=== PATIENT | female | born 1955 | race Caucasian/White ===

== ENCOUNTER 2018-11-04 10:22 | Inpatient (IN) | payer MEDICARE ==
[2018-11-04] MEDS ORDERED: VANCOMYCIN HCL INJ 1000 MG VIAL IV ONE (10:52)
--- NOTE | 2018-11-04 10:54 | ER Document Report ---
ED Medical Screen (RME) - General Chief Complaint: Hand Injury Stated Complaint: FALL Time Seen by Provider: 11/04/18 10:48 Notes: RAPID MEDICAL EVALUATION DISCLOSURE I have seen this patient as part of a Rapid Medical Evaluation and, if applic able, placed any initially appropriate orders. The patient will be seen and fully evaluated, including a full history and physical exam, by a provider (in Main ED or Fast Track) when a room becomes available. 62-year-old female PMH diabetes here with complaints of right hand and forearm swelling redness ongoing for the past 2 weeks. She reports it started when she fell and accidentally caught her right hand on her wheelchair. Since then she has had progressively worsening symptoms. She does have a history of MRSA and family member reports it is only susceptible to vancomycin. EXAM Mild to moderate right hand swelling with erythema and lymphangitis tracking up the forearm to elbow No drainage visualized from the 1.5 cm right palm lesion - Related Data Allergies/Adverse Reactions: No Known Allergies Allergy (Unverified 11/04/18 10:23) Physical Exam - Vital signs Vitals: Temp Pulse Resp BP Pulse Ox 98.5 F 105 H 18 124/69 96 11/04/18 10:35 11/04/18 10:35 11/04/18 10:35 11/04/18 10:35 11/04/18 10:35 Course - Vital Signs Vital signs: Temp Pulse Resp BP Pulse Ox 98.5 F 105 H 18 124/69 96 11/04/18 10:35 11/04/18 10:35 11/04/18 10:35 11/04/18 10:35 11/04/18 10:35
--- NOTE | 2018-11-04 11:45 | RADIOLOGY REPORT (SQ) ---
EXAM DESCRIPTION: HAND RIGHT 2 VIEWS; FOREARM RIGHT COMPLETED DATE/TIME: 11/04/2018 11:20 am REASON FOR STUDY: infection; eval gas gangrene osteolysis? COMPARISON: None. EXAM PARAMETERS: NUMBER OF VIEWS: Three views of the right hand, two views of right forearm. TECHNIQUE: AP, lateral and oblique radiographic images acquired of the right hand. AP and lateral r adiographic images are right forearm. LIMITATIONS: None. FINDINGS: MINERALIZATION: Normal. BONES: No acute fracture or dislocation. No worrisome bone lesions. JOINTS: No effusions. SOFT TISSUES: Diffuse soft tissue swelling about the right thumb. There is a radiodense metallic fra gment such as a needle or wire present in the pad of the right thumb. 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 IMPRESSION: Diffuse soft tissue swelling about the right thumb. There is a radiodense metallic frag ment such as a needle or wire present in the pad of the right thumb. No evidence of subcutaneous emp hysema; CT is more sensitive for the evaluation of subcutaneous emphysema. MRI is more sensitive for the evaluation of marrow edema and osteomyelitis. TECHNICAL DOCUMENTATION: JOB ID: [id number] [employer]- All Rights Reserved Reading location - IP/workstation name: [id number]
--- NOTE | 2018-11-04 11:45 | RADIOLOGY REPORT (SQ) ---
EXAM DESCRIPTION: HAND RIGHT 2 VIEWS; FOREARM RIGHT COMPLETED DATE/TIME: 11/04/2018 11:20 am REASON FOR STUDY: infection; eval gas gangrene osteolysis? COMPARISON: None. EXAM PARAMETERS: NUMBER OF VIEWS: Three views of the right hand, two views of right forearm. TECHNIQUE: AP, lateral and oblique radiographic images acquired of the right hand. AP and lateral r adiographic images are right forearm. LIMITATIONS: None. FINDINGS: MINERALIZATION: Normal. BONES: No acute fracture or dislocation. No worrisome bone lesions. JOINTS: No effusions. SOFT TISSUES: Diffuse soft tissue swelling about the right thumb. There is a radiodense metallic fra gment such as a needle or wire present in the pad of the right thumb. 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 IMPRESSION: Diffuse soft tissue swelling about the right thumb. There is a radiodense metallic frag ment such as a needle or wire present in the pad of the right thumb. No evidence of subcutaneous emp hysema; CT is more sensitive for the evaluation of subcutaneous emphysema. MRI is more sensitive for the evaluation of marrow edema and osteomyelitis. TECHNICAL DOCUMENTATION: JOB ID: [id number] [employer]- All Rights Reserved Reading location - IP/workstation name: [email or web address]
[2018-11-04 11:49] LABS: HEMATOCRIT 32.3 % (36.0-47.0); HEMOGLOBIN 11.4 g/dL (12.0-15.5); MEAN CORPUSCULAR HEMOGLOBIN 30.3 pg (27.0-33.4); MEAN CORPUSCULAR HGB CONC 35.2 g/dL (32.0-36.0); MEAN CORPUSCULAR VOLUME 86 fl (80-97); PLATELET COUNT 563 10^3/uL (150-450); RED BLOOD COUNT 3.75 10^6/uL (3.72-5.28); RED CELL DISTRIBUTION WIDTH 14.8 % (11.5-14.0)
[2018-11-04 12:19] LABS: ABSOLUTE LYMPHOCYTES# (MANUAL) 1.4 10^3/uL (0.5-4.7); ABSOLUTE MONOCYTES # (MANUAL) 0.5 10^3/uL (0.1-1.4); ABSOLUTE NEUTROPHILS# (MANUAL) 22.1 10^3/uL (1.7-8.2); BAND NEUTROPHILS % (MANUAL) 2 % (3-5); BASOPHILS % (MANUAL) 0 % (0-2); EOSINOPHILS % (MANUAL) 0 % (0-6); LYMPHOCYTES % (MANUAL) 6 % (13-45); MONOCYTES % (MANUAL) 2 % (3-13); SEGMENTED NEUTROPHILS % (MAN) 90 % (42-78); TOTAL CELLS COUNTED 100
[2018-11-04 12:20] LABS: PLATELET COMMENT ADEQUATE; TOXIC GRANULATION SLIGHT
[2018-11-04 12:21] LABS: POLYCHROMASIA SLIGHT
[2018-11-04] MEDS: ONDANSETRON HCL INJ/PF 4 MG/2 ML SDV IV PRN ×2 (12:40→23:00)
[2018-11-04] MEDS: MORPHINE SULFATE 10 MG/ML INJ IV PRN (12:41)
[2018-11-04 13:53] LABS: ALANINE AMINOTRANSFERASE 8 U/L (9-52); ALBUMIN 3.4 g/dL (3.5-5.0); ALKALINE PHOSPHATASE 218 U/L (38-126); ANION GAP 13 (5-19); ASPARTATE AMINO TRANSFERASE 22 U/L (14-36); BILIRUBIN,DIRECT 0.3 mg/dL (0.0-0.4); BILIRUBIN,TOTAL 0.3 mg/dL (0.2-1.3); BLOOD UREA NITROGEN 25 mg/dL (7-20); CALCIUM 10.8 mg/dL (8.4-10.2); CARBON DIOXIDE 24 mmol/L (22-30); CHLORIDE 88 mmol/L (98-107); POTASSIUM 4.3 mmol/L (3.6-5.0); SODIUM 125.4 mmol/L (137-145); TOTAL PROTEIN 7.1 g/dL (6.3-8.2)
[2018-11-04 14:06] LABS: GLUCOSE 684 mg/dL (75-110)
[2018-11-04] MEDS ORDERED: CEFTRIAXONE 1 GM/D5W RTU 1 GM/50 ML RTUPB IV ONE (14:29)
--- NOTE | 2018-11-04 15:50 | ER Document Report ---
ED General - General Chief Complaint: Hand Injury Stated Complaint: FALL Time Seen by Provider: 11/04/18 10:48 - HPI Patient complains to provider of: Right hand swelling Notes: Patient is a poorly controlled diabetic coming in for swelling of the right hand. Patient was seen by triage provider whose note is provided below 62-year-old female PMH diabetes here with complaints of right hand and forearm swelling redness ongoing for the past 2 weeks. She reports it started when she fell and accidentally caught her right hand on her wheelchair. Since then she has had progressively worsening symptoms. She does have a history of MRSA and family member reports it is only susceptible to vancomycin. Upon my evaluation patient does endorse a history of MRSA however states that she fell only approximately 3-4 days ago. Patient has already had x-rays performed does endorse a history of approximate 1 month ago having a small metal sliver inserted into her thumb. Patient otherwise denies any recent use of antibiotics denies any hospitalization states most of her cares performed in [facility]. Patient states only had diabetic. Patient otherwise denies fevers chills nausea vomiting diarrhea A brief review of the patient's past medical records available in [facility] was performed - Related Data Allergies/Adverse Reactions: No Known Allergies Allergy (Unverified 11/04/18 10:23) Past Medical History - Social History Smoking Status: Never Smoker Chew tobacco use (# tins/day): No Frequency of alcohol use: None Drug Abuse: None Family History: Reviewed & Not Pertinent Patient has suicidal ideation: No Patient has homicidal ideation: No Endocrine Medical History: Reports: Hx Diabetes Mellitus Type 1 Renal/ Medical History: Denies: Hx Peritoneal Dialysis Past Surgical History: Reports: Hx Cardiac Surgery Review of Systems - Review of Systems Constitutional: No symptoms reported EENT: No symptoms reported Cardiovascular: No symptoms reported Respiratory: No symptoms reported Gastrointestinal: No symptoms reported Genitourinary: No symptoms reported Female Genitourinary: No symptoms reported Musculoskeletal: Other - Right hand swelling Skin: No symptoms reported Hematologic/Lymphatic: No symptoms reported Neurological/Psychological: No symptoms reported -: Yes All other systems reviewed and negative Physical Exam - Vital signs Vitals: Temp Pulse Resp BP Pulse Ox 98.5 F 105 H 18 124/69 96 11/04/18 10:35 11/04/18 10:35 11/04/18 10:35 11/04/18 10:35 11/04/18 10:35 Interpretation: Normal - General General appearance: Appears well, Alert - HEENT Head: Normocephalic, Atraumatic Eyes: Normal Pupils: PERRL - Respiratory Respiratory status: No respiratory distress Chest status: Nontender Breath sounds: Normal Chest palpation: Normal - Cardiovascular Rhythm: Regular Heart sounds: Normal auscultation Murmur: No - Abdominal Inspection: Normal Distension: No distension Bowel sounds: Normal Tenderness: Nontender Organomegaly: No organomegaly - Back Back: Normal, Nontender - Extremities General upper extremity: Normal ROM, Normal temperature, Other - Mild to moderate right hand swelling with erythema and lymphangitis tracking up the forearm to elbow No drainage visualized from the 1.5 cm right palm lesion. No: Normal inspection General lower extremity: Nontender, Normal color, Normal ROM, Normal temperature. No: Normal inspection - Bilateral AKA's, Alejandro's sign - Neurological Neuro grossly intact: Yes Cognition: Normal Orientation: AAOx4 Stacey Coma Scale Eye Opening: Spontaneous Stacey Coma Scale Verbal: Oriented Stacey Coma Scale Motor: Obeys Commands Stacey Coma Scale Total: 15 Speech: Normal Motor strength normal: LUE, RUE, LLE, RLE Sensory: Normal - Psychological Associated symptoms: Normal affect, Normal mood - Skin Skin Temperature: Warm Skin Moisture: Dry Skin Color: Normal Course - Re-evaluation Re-evalutation: 11/04/18 17:59 Laboratory studies show leukocytosis with with elevated blood glucose. No signs of acidosis normal bicarbonate normal gap. Refer to the hospitalist requesting or the consult was able to call Dr. traylor consult was placed and states he will see the patient in the morning otherwise patient was stable for admission - Vital Signs Vital signs: Temp Pulse Resp BP Pulse Ox 98.5 F 105 H 20 120/81 94 11/04/18 10:35 11/04/18 10:35 11/04/18 15:00 11/04/18 15:00 11/04/18 15:01 - Laboratory Result Diagrams: 11/04/18 11:25 11/04/18 12:32 Laboratory results interpreted by me: 11/04/18 11/04/18 11:25 12:32 WBC 24.0 H Hgb 11.4 L Hct 32.3 L RDW 14.8 H Plt Count 563 H Seg Neuts % (Manual) 90 H Band Neutrophils % 2 L Lymphocytes % (Manual) 6 L Monocytes % (Manual) 2 L Abs Neuts (Manual) 22.1 H Sodium 125.4 L Chloride 88 L BUN 25 H Est GFR (Non-Af Amer) 52 L Glucose 684 H* Calcium 10.8 H ALT 8 L Alkaline Phosphatase 218 H Albumin 3.4 L Discharge - Discharge Clinical Impression: Infection of right hand, Diabetes, Hyperglycemia, 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
[2018-11-04] MEDS ORDERED: OXYCODONE HCL IR 5 MG TABLET PO ONE (16:06)
[2018-11-04] MEDS ORDERED: ONDANSETRON HCL INJ/PF 4 MG/2 ML SDV IV PRN (16:07)
[2018-11-04] MEDS ORDERED: NORMAL SALINE 1000 ML 1,000 ML IV PRN (16:07)
[2018-11-04] MEDS ORDERED: GLUCAGON,HUMAN RECOMB 1 MG INJ IM PRN (16:13)
[2018-11-04] MEDS ORDERED: DEXTROSE 50%-WATER 25 GM/50 ML DISP.SYRIN IV PRN ×2 (16:13)
[2018-11-04] MEDS ORDERED: DEXTROSE 40% GEL 15 GM TUBE PO PRN ×2 (16:13)
[2018-11-04] MEDS ORDERED: VANCOMYCIN HCL 0 MG in DEXTROSE 5%-WATER 250 ML IV NR (17:30)
[2018-11-04] MEDS ORDERED: NORMAL SALINE 1000 ML 500 ML IV ONE (17:37)
[2018-11-04] MEDS: PIPERACILLIN SODIUM/TAZOBACTAM 3.375 GM in NORMAL SALINE 100 ML IV SCH ×2 (18:40→23:13)
[2018-11-04] MEDS: INSULIN REG, HUMAN 100 UNIT/ML 3 ML VIAL (PYX) SUBCUT PRN (18:56)
--- NOTE | 2018-11-04 19:11 | PDOC H&P ---
History of Present Illness Patient complains of: right hand pain History of Present Illness: RAMAN MANCIA is a 62 year old female with a past medical history of diabetes and bilateral lower extremity amputation, who presented to the ED complaining of right hand pain. Patient states that she fell 3-4 days ago while she slipped out of the couch and hurt her hand and hence she came to the ER today because her pain was unbearable. Patient states that she did not have LOC and just slipped forward and tried to break her fall by using her hands. States she stayed at home and tried to take care of her pain on her own but the pain was getting worse. She denies fevers chills, shortness of breath, chest pain, abdominal pain, nausea/vomiting or dizziness. She also has a wound on her right palm of her hand which she states has been there for weeks now. I asked her if she followed up with her doctor regarding this wound and she states no. In the ED she received IV antibiotics with Rocephin and Vanco. ED physician also contacted orthopedist regarding the hand wound. Past Medical History Endocrine Medical History: Reports: Diabetes Mellitus Type 1 Social History Information Source: Patient Lives with: Family - daughter Smoking Status: Never Smoker - Advance Directive Resuscitation Status: Do Not Resuscitate - patient states she recently signed a DNR order Family History Parental Family History Reviewed: Yes Children Family History Reviewed: Unknown Sibling(s) Family History Reviewed.: Unknown Medication/Allergy Home Medications: Aspirin [Adult Low Dose Aspirin EC] 81 mg PO DAILY 11/04/18 Insulin Glargine,Hum.rec.anlog [Lantus Insulin Inj 300 Unit/3 ml Pen] 20 unit SUBCUT QHS 11/04/18 Insulin Lispro [Humalog Insulin (Lispro) 100 unit/mL] 0 units SQ .PERSLIDINGSCALE 11/04/18 Allergies/Adverse Reactions: No Known Allergies Allergy (Unverified 11/04/18 10:23) Review of Systems Constitutional: ABSENT: chills, fever(s) Eyes: ABSENT: visual disturbances Ears: ABSENT: hearing changes Nose, Mouth, and Throat: ABSENT: sore throat Cardiovascular: ABSENT: chest pain, edema, orthropnea Respiratory: ABSENT: cough, dyspnea Gastrointestinal: ABSENT: abdominal pain, nausea, vomiting Genitourinary: ABSENT: difficulty urinating, dysuria Musculoskeletal: PRESENT: other - right hand pain Integumentary: PRESENT: other - right hand wound Neurological: ABSENT: focal weakness, syncope, weakness Physical Exam Vital Signs: Temp Pulse Resp BP Pulse Ox 98.5 F 105 H 20 120/81 94 11/04/18 10:35 11/04/18 10:35 11/04/18 15:00 11/04/18 15:00 11/04/18 15:01 Intake & Output 11/03/18 11/04/18 11/05/18 06:59 06:59 06:59 Intake Total 50 Balance 50 Weight 140 lb General appearance: PRESENT: no acute distress, other - appears older than stated age Head exam: PRESENT: atraumatic, normocephalic Eye exam: PRESENT: EOMI, PERRLA. ABSENT: scleral icterus Ear exam: PRESENT: normal external ear exam Mouth exam: PRESENT: moist, tongue midline Neck exam: ABSENT: tracheal deviation Respiratory exam: PRESENT: clear to auscultation marce, symmetrical Cardiovascular exam: PRESENT: +S1, +S2 GI/Abdominal exam: PRESENT: normal bowel sounds, soft. ABSENT: tenderness Extremities exam: PRESENT: +1 edema - right hand - edema with- TTP with decreased ROM of the fingers and wrist, other - bilateral LE amputation noted Neurological exam: PRESENT: alert, awake, oriented to person, oriented to place, oriented to time, oriented to situation, CN II-XII grossly intact Skin exam: PRESENT: erythema - erythema- streaking noted on right forearem and upper arm, other - right hand palm- less than 1 inch circular wound noted- no discharge- TTP-erythema of the hand Results Laboratory Results: 11/04/18 11:25 11/04/18 12:32 11/04/18 11/04/18 11/04/18 11:25 11:25 11:25 WBC 24.0 H RBC 3.75 Hgb 11.4 L Hct 32.3 L MCV 86 MCH 30.3 MCHC 35.2 RDW 14.8 H Plt Count 563 H Seg Neutrophils % Not Reportable Lymphocytes % Not Reportable Monocytes % Not Reportable Eosinophils % Not Reportable Basophils % Not Reportable Absolute Neutrophils Not Reportable Absolute Lymphocytes Not Reportable Absolute Monocytes Not Reportable Absolute Eosinophils Not Reportable Absolute Basophils Not Reportable Sodium Cancelled Potassium Cancelled Chloride Cancelled Carbon Dioxide Cancelled Anion Gap Cancelled BUN Cancelled Creatinine Cancelled Est GFR ( Amer) Cancelled Est GFR (Non-Af Amer) Cancelled Glucose Cancelled Lactic Acid 1.0 Calcium Cancelled Total Bilirubin Cancelled AST Cancelled ALT Cancelled Alkaline Phosphatase Cancelled Total Protein Cancelled Albumin Cancelled 11/04/18 12:32 WBC RBC Hgb Hct MCV MCH MCHC RDW Plt Count Seg Neutrophils % Lymphocytes % Monocytes % Eosinophils % Basophils % Absolute Neutrophils Absolute Lymphocytes Absolute Monocytes Absolute Eosinophils Absolute Basophils Sodium 125.4 L Potassium 4.3 Chloride 88 L Carbon Dioxide 24 Anion Gap 13 BUN 25 H Creatinine 1.07 Est GFR ( Amer) > 60 Est GFR (Non-Af Amer) 52 L Glucose 684 H* Lactic Acid Calcium 10.8 H Total Bilirubin 0.3 AST 22 ALT 8 L Alkaline Phosphatase 218 H Total Protein 7.1 Albumin 3.4 L 11/04/18 12:32 Creatine Kinase 70 Impressions: Forearm X-Ray 11/04/18 10:50 IMPRESSION: Diffuse soft tissue swelling about the right thumb. There is a radiodense metallic fragment such as a needle or wire present in the pad of the right thumb. No evidence of subcutaneous emphysema; CT is more sensitive for the evaluation of subcutaneous emphysema. MRI is more sensitive for the evalua tion of marrow edema and osteomyelitis. Hand X-Ray 11/04/18 10:50 IMPRESSION: Diffuse soft tissue swelling about the right thumb. There is a radiodense metallic fragment such as a needle or wire present in the pad of the right thumb. No evidence of subcutaneous emphysema; CT is more sensitive for the evaluation of subcutaneous emphysema. MRI is more sensitive for the evaluation of marrow edema and osteomyelitis. Assessment & Plan - Diagnosis (1) Sepsis Is this a current diagnosis for this admission?: Yes (2) Infection of right hand Is this a current diagnosis for this admission?: Yes (3) Open wound of right hand Is this a current diagnosis for this admission?: Yes (4) Right hand pain Is this a current diagnosis for this admission?: Yes (5) Hyponatremia Is this a current diagnosis for this admission?: Yes (6) Hypercalcemia Is this a current diagnosis for this admission?: Yes (7) Diabetes Is this a current diagnosis for this admission?: Yes (8) Hyperglycemia Is this a current diagnosis for this admission?: Yes (9) 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 Is this a current diagnosis for this admission?: Yes - Time Time Spent: 50 to 70 Minutes Medications reviewed and adjusted accordingly: No - med list is not reconciled yet during admission Anticipated discharge: Home with Homehealth - Inpatient Certification Based on my medical assessment, after consideration of the patient's comorbidities, presenting symptoms, or acuity I expect that the services needed warrant INPATIENT care.: Yes I certify that my determination is in accordance with my understanding of [facility]'s requirements for reasonable and necessary INPATIENT services [42 CFR 412.3e].: Yes - Plan Summary Plan Summary: Sepsis- 2/2 right hand wound infection-WBC 24,000 but normal lactate. Likely a diabetic would- states she has a wheel chair and the handle is broken and sharp- states wound has been there for weeks now-at this time we will start her on antibiotics with IV Zosyn and Vanco and send for cultures of the wound. Will de-escalate antibiotic therapy as she improves. Right hand wound infection-see plan above. Orthopedics has been consulted and I appreciate their assistance in this matter. Right hand pain-we will start her on some p.o. pain meds. Diabetes mellitus with hyperglycemia-not in DKA at this time but likely she is not well controlled. Will get A1c in the morning. Medication has not been reconciled at this time so we will start on Lantus 10 units at night and sliding scale insulin. Hyponatremia-likely secondary to dehydration as she looks very dry on exam. We will start him on maintenance IV fluids and give her IV fluid bolus. Goal is to increase her sodium by no more than 8-10meq daily. Hypercalcemia-likely transient. Will give IV fluids as discussed above and repeat labs in the morning.
[2018-11-04] MEDS: FAMOTIDINE 20 MG TABLET PO SCH (23:00)
[2018-11-04] MEDS: HEPARIN SOD (PORCINE) 5,000 UNIT/ML 1 ML SYRINGE SUBCUT SCH (23:00)
[2018-11-05] MEDS: INSULIN GLARGINE,HUM.REC.ANLOG 300 UNIT/3 ML INSULN.PEN SUBCUT SCH ×2 (00:05→22:54)
[2018-11-05] MEDS: ACETAMINOPHEN 325 MG TABLET PO PRN ×2 (03:14→21:37)
[2018-11-05] MEDS ORDERED: MORPHINE SULFATE 10 MG/ML INJ ONE (03:25)
[2018-11-05] MEDS: MORPHINE SULFATE 10 MG/ML INJ IV PRN (03:29)
[2018-11-05] MEDS: ONDANSETRON HCL INJ/PF 4 MG/2 ML SDV IV PRN (03:29)
[2018-11-05 04:34] LABS: ABSOLUTE BASOPHILS # (AUTO) 0.1 10^3/uL (0.0-0.2); ABSOLUTE LYMPHOCYTES (AUTO) 1.1 10^3/uL (0.5-4.7); ABSOLUTE MONOCYTES (AUTO) 1.2 10^3/uL (0.1-1.4); ABSOLUTE NEUT (AUTO) 17.1 10^3/uL (1.7-8.2); BASOPHILS % (AUTO) 0.4 % (0-2); EOSINOPHILS % (AUTO) 0.2 % (0-6); HEMATOCRIT 31.4 % (36.0-47.0); HEMOGLOBIN 10.4 g/dL (12.0-15.5); LYMPHOCYTES % (AUTO) 5.9 % (13-45); MEAN CORPUSCULAR HEMOGLOBIN 28.8 pg (27.0-33.4); MEAN CORPUSCULAR VOLUME 87 fl (80-97); PLATELET COUNT 440 10^3/uL (150-450); RED CELL DISTRIBUTION WIDTH 13.3 % (11.5-14.0); SEGMENTED NEUTROPHILS % (AUTO) 87.5 % (42-78); TOTAL CELLS COUNTED % (AUTO) 100 %; WHITE BLOOD COUNT 19.5 10^3/uL (4.0-10.5)
[2018-11-05 04:56] LABS: ANION GAP 9 (5-19); BLOOD UREA NITROGEN 22 mg/dL (7-20); CALCIUM 8.7 mg/dL (8.4-10.2); CARBON DIOXIDE 26 mmol/L (22-30); CHLORIDE 95 mmol/L (98-107); GLUCOSE 304 mg/dL (75-110); POTASSIUM 4.4 mmol/L (3.6-5.0); SODIUM 129.5 mmol/L (137-145)
[2018-11-05] MEDS: HEPARIN SOD (PORCINE) 5,000 UNIT/ML 1 ML SYRINGE SUBCUT SCH ×3 (07:14→21:36)
[2018-11-05] MEDS: INSULIN REG, HUMAN 100 UNIT/ML 3 ML VIAL (PYX) SUBCUT PRN ×2 (08:07→22:57)
[2018-11-05] MEDS: PIPERACILLIN SODIUM/TAZOBACTAM 3.375 GM in NORMAL SALINE 100 ML IV SCH ×4 (08:31→21:33)
[2018-11-05] MEDS ORDERED: ONDANSETRON HCL INJ/PF 4 MG/2 ML SDV IV PRN (09:00)
[2018-11-05] MEDS: DOCUSATE SODIUM 100 MG CAPSULE PO SCH (11:02)
[2018-11-05] MEDS: OXYCODONE HCL IR 5 MG TABLET PO PRN ×2 (11:02→18:58)
[2018-11-05] MEDS: FAMOTIDINE 20 MG TABLET PO SCH ×2 (11:02→21:37)
[2018-11-05] MEDS: VANCOMYCIN HCL 500 MG in DEXTROSE 5%-WATER 100 ML IV SCH ×2 (11:54→22:50)
--- NOTE | 2018-11-05 12:51 | PDOC CONSULTATION ---
Consultation Consult Date: 11/05/18 Consult reason:: Right hand cellulitis questionable abscess History of Present Illness Admission Date/PCP: 11/04/18 16:50 History of Present Illness: RAMAN MANCIA is a 62 year old female uncontrolled diabetic patient with for 5 days worth of a wound on the palmar aspect of her hand at the base of the right thumb. Measures about 1 cm in diameter. Cannot express pus. Redness and s welling of the hand especially with motion of the thumb with the pain radiating to the dorsal aspect of the wrist and pain with the range of motion of the wrist although intact. Complains of pain to be 5 out of 5 with motion and palpation. At rest pain is about 2 out of 5. Denies any numbness or tingling. Since being on antibiotics states she has had had no fevers but prior she did. No chills. Past Medical History Endocrine Medical History: Reports: Diabetes Mellitus Type 1 Social History Lives with: Family - daughter Smoking Status: Never Smoker Drugs: None - Advance Directive Resuscitation Status: Do Not Resuscitate - patient states she recently signed a DNR order Family History Family History: Reviewed & Not Pertinent Parental Family History Reviewed: No Children Family History Reviewed: No Sibling(s) Family History Reviewed.: No Medication/Allergy Home Medications: Aspirin [Adult Low Dose Aspirin EC] 81 mg PO DAILY 11/04/18 Insulin Glargine,Hum.rec.anlog [Lantus Insulin Inj 300 Unit/3 ml Pen] 20 unit SUBCUT QHS 11/04/18 Insulin Lispro [Humalog Insulin (Lispro) 100 unit/mL] 0 units SQ .PERSLIDINGSCALE 11/04/18 Allergies/Adverse Reactions: No Known Allergies Allergy (Unverified 11/04/18 10:23) Review of Systems Review of Systems: Constitutional: [PRESENT: as per HPI. ABSENT: chills, fever(s), headache(s), weight gain, weight loss] Eyes: [ABSENT: visual disturbances] Ears: [ABSENT: hearing changes] Cardiovascular: [ABSENT: chest pain, dyspnea on exertion, edema, orthropnea, palpitations] Respiratory: [ABSENT: cough, hemoptysis] Gastrointestinal: [ABSENT: abdominal pain, constipation, diarrhea, hematemesis, hematochezia, nausea, vomiting] Genitourinary: [ABSENT: dysuria, hematuria] Musculoskeletal: As per HPI Integumentary: [ABSENT: rash, wounds] Neurological: [ABSENT: abnormal gait, abnormal speech, confusion, dizziness, focal weakness, syncope] Psychiatric: [ABSENT: anxiety, depression, homicidal ideation, suicidal ideation] Endocrine: [ABSENT: cold intolerance, heat intolerance, menstrual abnormalities, polydipsia, polyuria] Hematologic/Lymphatic: [ABSENT: easy bleeding, easy bruising, lymphadenopathy] Physical Exam Vital Signs: Temp Pulse Resp BP Pulse Ox 36.8 C 105 H 17 139/70 H 97 11/05/18 08:22 11/04/18 10:35 11/05/18 12:00 11/05/18 12:00 11/05/18 12:00 Intake & Output 11/04/18 11/05/18 11/06/18 06:59 06:59 06:59 Intake Total 750 100 Balance 750 100 Weight 63.503 kg General appearance: PRESENT: no acute distress, cooperative, thin Eye exam: PRESENT: EOMI, other. ABSENT: conjunctival injection, conjunctiva pink, nystagmus Ear exam: PRESENT: normal external ear exam - Round pupils and symmetric Mouth exam: PRESENT: neck supple Teeth exam: PRESENT: poor dentation Neck exam: ABSENT: lymphadenopathy, thyromegaly Respiratory exam: PRESENT: symmetrical, unlabored. ABSENT: accessory muscle use Cardiovascular exam: PRESENT: RRR Pulses: PRESENT: normal radial pulses Vascular exam: PRESENT: normal capillary refill Front of Hands Image: 1 - Close to a centimeter round abrasion that is about a couple millimeters deep with a scab. No purulence was squeezed. She is tender in the thenar eminence and at the base of the thumb. Range of motion of the thumb does cause pain. Her pain then radiates to the wrist crease and carpal tunnel region. Denies any numbness or tingling or paresthesias. The entire hand does have swelling diffusely but intact range of motion of her digits. No tenderness in the hyperthenar and's. Range of motion of the wrist is intact. Good capillary refill and radial pulse. Neurological exam: PRESENT: alert, awake, oriented to person, oriented to place, oriented to time, oriented to situation Psychiatric exam: PRESENT: appropriate affect, normal mood Skin exam: PRESENT: abrasion, erythema Results Laboratory Results: 11/05/18 04:16 11/05/18 04:16 11/04/18 11/05/18 11/05/18 12:32 04:16 04:16 WBC 19.5 H RBC 3.60 L Hgb 10.4 L Hct 31.4 L MCV 87 MCH 28.8 MCHC 33.0 RDW 13.3 Plt Count 440 Seg Neutrophils % 87.5 H Lymphocytes % 5.9 L Monocytes % 6.0 Eosinophils % 0.2 Basophils % 0.4 Absolute Neutrophils 17.1 H Absolute Lymphocytes 1.1 Absolute Monocytes 1.2 Absolute Eosinophils 0.0 Absolute Basophils 0.1 Sodium 125.4 L 129.5 L Potassium 4.3 4.4 Chloride 88 L 95 L Carbon Dioxide 24 26 Anion Gap 13 9 BUN 25 H 22 H Creatinine 1.07 0.98 Est GFR ( Amer) > 60 > 60 Est GFR (Non-Af Amer) 52 L 57 L Glucose 684 H* 304 H Calcium 10.8 H 8.7 Magnesium 1.5 L Total Bilirubin 0.3 AST 22 ALT 8 L Alkaline Phosphatase 218 H Total Protein 7.1 Albumin 3.4 L 11/04/18 12:32 Creatine Kinase 70 Impressions: Forearm X-Ray 11/04/18 10:50 IMPRESSION: Diffuse soft tissue swelling about the right thumb. There is a radiodense metallic fragment such as a needle or wire present in the pad of the right thumb. No evidence of subcutaneous emphysema; CT is more sensitive for the evaluation of subcutaneous emphysema. MRI is more sensitive for the evaluation of marrow edema and osteomyelitis. Hand X-Ray 11/04/18 10:50 IMPRESSION: Diffuse soft tissue swelling about the right thumb. There is a radiodense metallic fragment such as a needle or wire present in the pad of the right thumb. No evidence of subcutaneous emphysema; CT is more sensitive for the evaluation of subcutaneous emphysema. MRI is more sensitive for the evaluat ion of marrow edema and osteomyelitis. Status: Image reviewed by me Assessment & Plan - Diagnosis (1) Infection of right hand Is this a current diagnosis for this admission?: Yes Plan: 62-year-old female who is receiving IV antibiotics for right hand cellulitis with a revision in aspiration. This been going on for third several days and I am concerned the patient may have developed a thenar eminence abscess. Would like to obtain an MRI but she does have like a needle foreign body at the tip of the thumb years prior and after discussing the with the radiologist will order CT scan and if this is inconclusive we will consider an ultrasound. White count is trending down so she is responding to antibiotics. I will reassess tomorrow and look at the images and discuss if she needs irrigation and debridement sometime night or Saturday evening.
[2018-11-05] MEDS ORDERED: MORPHINE SULFATE 10 MG/ML INJ IV ONE (13:30)
--- NOTE | 2018-11-05 19:05 | RADIOLOGY REPORT (SQ) ---
EXAM DESCRIPTION: CT RT UPPER EXTREMITY COMBO COMPLETED DATE/TIME: 11/05/2018 6:42 pm REASON FOR STUDY: R hand edema, possible foreign body, osteo? COMPARISON: X-ray dated 11/04/2018. TECHNIQUE: Postcontrast axial imaging performed through the right hand with reformatted coronal and sagittal imaging windowed for bone and soft tissues. Images saved to PACS. 3D IMAGING: Were 3D images as MIP, SSD, or volume rendering performed at the work station? No. All CT scanners at this facility use dose modulation, iterative reconstruction, and/or weight based d osing when appropriate to reduce radiation dose to as low as reasonably achievable (ALARA). [facility]: Dose Right [facility]: CareDose [facility]: Dose Right [facility]: Teradose 4D [facility]: Arav CONTRAST TYPE AND DOSE: contrast/concentration: Isovue 350.00 mg/ml; Total Contrast Delivered: 70.0 ml; Total Saline Delivered: 60.0 ml RENAL FUNCTION: BUN 22 creatinine 0.98. LIMITATIONS: None. RADIATION DOSE: CT Rad equipment meets quality standard of care and radiation dose reduction techniq ues were employed. CTDIvol: 2.6 mGy. DLP: 118 mGy-cm.mGy. FINDINGS: SOFT TISSUES: Linear metallic foreign object in the soft tissues of the pad of the distal thumb. Large skin defect in the palm with extensive gas extending into the palmar soft tissues. No discrete fluid collection. BONES: No acute fracture. No dislocation no destructive lesions or other significant bony findings. MINERALIZATION: Normal. ENHANCEMENT: No abnormal enhancement. OTHER: No other significant finding. IMPRESSION: 1. LINEAR METALLIC FOREIGN OBJECT IN THE SOFT TISSUES OF THE PAD OF THE DISTAL THUMB. 2. SKIN DEFECT IN THE PALM WITH EXTENSIVE GAS EXTENDING INTO THE PALMAR SOFT TISSUES SUSPICIOUS FOR I NFECTION. NO FLUID COLLECTION OR DRAINABLE ABSCESS. 3. NO SIGNIFICANT BONY FINDINGS. TECHNICAL DOCUMENTATION: JOB ID: [id number] Quality ID # [id number]: Final reports with documentation of one or more dose reduction techniques (e.g., Au tomated exposure control, adjustment of the mA and/or kV according to patient size, use of iterative reconstruction technique) 2010 [employer]- All Rights Reserved Reading location - IP/workstation name: [email or web address]
[2018-11-06] MEDS: PIPERACILLIN SODIUM/TAZOBACTAM 3.375 GM in NORMAL SALINE 100 ML IV SCH ×4 (03:57→22:19)
[2018-11-06] MEDS: OXYCODONE HCL IR 5 MG TABLET PO PRN ×3 (05:29→15:29)
[2018-11-06] MEDS: HEPARIN SOD (PORCINE) 5,000 UNIT/ML 1 ML SYRINGE SUBCUT SCH ×3 (05:30→21:40)
[2018-11-06 05:43] LABS: ABSOLUTE BASOPHILS # (AUTO) 0.1 10^3/uL (0.0-0.2); ABSOLUTE EOSINOPHILS # (AUTO) 0.1 10^3/uL (0.0-0.6); ABSOLUTE LYMPHOCYTES (AUTO) 1.8 10^3/uL (0.5-4.7); ABSOLUTE MONOCYTES (AUTO) 1.2 10^3/uL (0.1-1.4); BASOPHILS % (AUTO) 0.5 % (0-2); EOSINOPHILS % (AUTO) 0.7 % (0-6); HEMATOCRIT 29.7 % (36.0-47.0); HEMOGLOBIN 9.9 g/dL (12.0-15.5); LYMPHOCYTES % (AUTO) 9.1 % (13-45); MEAN CORPUSCULAR HEMOGLOBIN 28.8 pg (27.0-33.4); MEAN CORPUSCULAR HGB CONC 33.2 g/dL (32.0-36.0); MEAN CORPUSCULAR VOLUME 87 fl (80-97); MONOCYTES % (AUTO) 6.5 % (3-13); PLATELET COUNT 411 10^3/uL (150-450); RED BLOOD COUNT 3.42 10^6/uL (3.72-5.28); RED CELL DISTRIBUTION WIDTH 13.6 % (11.5-14.0); SEGMENTED NEUTROPHILS % (AUTO) 83.2 % (42-78); TOTAL CELLS COUNTED % (AUTO) 100 %; WHITE BLOOD COUNT 19.2 10^3/uL (4.0-10.5)
[2018-11-06 06:06] LABS: ANION GAP 12 (5-19); BLOOD UREA NITROGEN 16 mg/dL (7-20); CALCIUM 8.4 mg/dL (8.4-10.2); CARBON DIOXIDE 23 mmol/L (22-30); CHLORIDE 97 mmol/L (98-107); GLUCOSE 178 mg/dL (75-110); POTASSIUM 3.9 mmol/L (3.6-5.0); SODIUM 132.3 mmol/L (137-145)
[2018-11-06] MEDS: INSULIN REG, HUMAN 100 UNIT/ML 3 ML VIAL (PYX) SUBCUT PRN ×4 (08:10→23:20)
--- NOTE | 2018-11-06 09:11 | PROGRESS NOTE E ---
Progress Note NAME: RAMAN MANCIA : 1955 AGE: 62Y DATE: 11/05/2018 ROOM: 536 SUBJECTIVE: The patient is lying in bed. The patient is resting. She is sleeping. The patient is out of pain for the first time today. She has had a great deal of pain and has just been medicated. The patient appears comfortable. The patient has been seen by Orthopedics and recommendations have been made for CT scan. No concerns voiced at this time. REVIEW OF SYSTEMS: Unobtained. MEDICATIONS: Reviewed. OBJECTIVE: GENERAL: The patient is a 62-year-old female who is currently resting. She appears very comfortable, no distress. VITAL SIGNS: Temperature is 98.7, pulse 101, respirations 16, blood pressure is 124/56, oxygen saturation is 93% on room air. SKIN: [place]. Does not appear diaphoretic. HEENT: Mucous membranes appear moist. There is no evidence of JVP. CARDIOVASCULAR SYSTEM: The patient is in sinus rhythm. CHEST: Symmetrical, unlabored. ABDOMEN: Nondistended. EXTREMITIES: The patient has bilateral AKA. The patient's right hand is edematous and red cellulitis. PSYCHIATRIC: The patient is sleeping. DIAGNOSTICS: Lab values are as follows: Hematology obtained on 11/05/2018: WBCs are 19.5, hemoglobin is 10.4, hematocrit is 31.4, platelet count is 444,000. Chemistry obtained on 11/05/2018: Sodium is 129, potassium 4.4, chloride is 95, carbon dioxide 26, BUN 22, creatinine is 0.98, glucose 304, calcium is 8.7, magnesium is 1.5, C-reactive protein is 332.1. IMPRESSION AND PLAN: 1. CELLULITIS OF THE RIGHT HAND. The patient continues on broad-spectrum antibiotic coverage. Will obtain imaging, CT with contrast. Do appreciate Orthopedic input on this, and follow. 2. DIABETES MELLITUS TYPE 1. The patient does have labile glucose control. Will continue current regimen and follow. 3. SEPSIS SECONDARY TO #1. The patient does appear to be improving. 4. HYPONATREMIA. The patient's corrected sodium does show improvement, however. Will repeat chemistry in the a.m. and follow. 5. HYPERCALCEMIA. This did improve with hydration. DISPOSITION: The patient is a DO NOT RESUSCITATE/DO NOT INTUBATE. Pending patient's symptomatology and diagnostic findings, will re-evaluate in the a.m. Time spent on this followup including assessment, plan, physical examination, patient education, review of records, and specialty collaboration is 25 minutes. DICTATING PHYSICIAN: ANGELA WILEY NP [id number] PHY#: [id number] ID: [id number] JOB#: [id number] ACCT: [id number] cc: >
[2018-11-06] MEDS: VANCOMYCIN HCL 500 MG in DEXTROSE 5%-WATER 100 ML IV SCH ×2 (09:45→21:47)
[2018-11-06] MEDS: FAMOTIDINE 20 MG TABLET PO SCH ×2 (09:46→21:41)
[2018-11-06] MEDS: DOCUSATE SODIUM 100 MG CAPSULE PO SCH (09:46)
[2018-11-06] MEDS ORDERED: MAGNESIUM SULFATE/D5W 1 GM/100 ML RTUPB IV ONE (11:00)
--- NOTE | 2018-11-06 11:42 | PROGRESS NOTE E ---
Progress Note NAME: RAMAN MANCIA : 1955 AGE: 62Y DATE: 11/06/2018 ROOM: 536 SUBJECTIVE: The patient has been awakened this morning. She states that she feels okay other than the pain that is in her hand. The patient denies any nausea, vomiting, no diarrhea, shortness of breath, dizziness, or chest pain. I went over the results of the patient's CT with her. The patient denies any IV drug use and the patient does not voice any other concerns at this time. REVIEW OF SYSTEMS: The rest of review of systems is negative. MEDICATIONS: Medication has been reviewed. OBJECTIVE: GENERAL: The patient is a 62-year-old female who is awake, alert, and oriented to person, place, time, and situation. She is verbal and conversational. Does not appear to be distressed. VITAL SIGNS: Temperature is 99.1, pulse 92, respirations 18, blood pressure is 132/69, oxygen saturation is 100% on room air. SKIN: Warm and dry, no rash, not diaphoretic. HEENT: Pupils equal, round, reactive to light and accommodation. Conjunctiva is pink. No evidence of JVP. CARDIOVASCULAR SYSTEM: Heart is regular. There is no murmur or rub. CHEST: Clear, symmetrical, unlabored. ABDOMEN: Soft, nontender. EXTREMITIES: The patient does have swelling, redness, cellulitis of the right hand. Patient is a bilateral AKA. PSYCHIATRIC: The patient is very pleasant. DIAGNOSTICS: Lab values are as follows: Hematology obtained on 11/06/2018: WBCs are 19.2, hemoglobin is 9.9, hematocrit is 29.7, platelet count is 411,000. Chemistry obtained on 11/06/2018: Sodium is 132, potassium 4.9, chloride is 97, carbon dioxide 23, BUN 16, creatinine is 0.97, glucose 138, calcium is 8.4, magnesium is 1.5. IMPRESSION AND PLAN: 1. CELLULITIS OF THE RIGHT HAND. Continue broad-spectrum antibiotic coverage. Do appreciate orthopedic input on this. 2. DIABETES MELLITUS TYPE 1. The patient does have labile glucose control at times. Continue current regimen as she is much better controlled. 3. SEPSIS SECONDARY TO number 1. The patient appears to be resolving. 4. HYPONATREMIA. Continue with hydration and follow. 5. HYPERCALCEMIA. This improved with hydration. 6. HYPOMAGNESEMIA. Will replete this. DISPOSITION: The patient is a DO NOT RESUSCITATE/DO NOT INTUBATE. Pending patient's symptomatology and diagnostic findings, will re-evaluate in the a.m. Time spent on this followup including assessment, plan, physical examination, patient education, review of records, and specialty collaboration is 25 minutes. DICTATING PHYSICIAN: ANGELA WILEY NP [id number] PHY#: [id number] ID: [id number] JOB#: [id number] ACCT: [id number] cc: >
[2018-11-06] MEDS: ACETAMINOPHEN 325 MG TABLET PO PRN (15:38)
[2018-11-06] MEDS: INSULIN GLARGINE,HUM.REC.ANLOG 300 UNIT/3 ML INSULN.PEN SUBCUT SCH (21:41)
[2018-11-07] MEDS: PIPERACILLIN SODIUM/TAZOBACTAM 3.375 GM in NORMAL SALINE 100 ML IV SCH ×4 (03:07→20:45)
[2018-11-07] MEDS: HEPARIN SOD (PORCINE) 5,000 UNIT/ML 1 ML SYRINGE SUBCUT SCH ×2 (05:07→14:37)
[2018-11-07 05:29] LABS: ABSOLUTE BASOPHILS # (AUTO) 0.1 10^3/uL (0.0-0.2); ABSOLUTE EOSINOPHILS # (AUTO) 0.1 10^3/uL (0.0-0.6); ABSOLUTE LYMPHOCYTES (AUTO) 1.2 10^3/uL (0.5-4.7); ABSOLUTE NEUT (AUTO) 17.4 10^3/uL (1.7-8.2); BASOPHILS % (AUTO) 0.4 % (0-2); EOSINOPHILS % (AUTO) 0.7 % (0-6); HEMOGLOBIN 9.6 g/dL (12.0-15.5); LYMPHOCYTES % (AUTO) 6.1 % (13-45); MEAN CORPUSCULAR HEMOGLOBIN 28.8 pg (27.0-33.4); MEAN CORPUSCULAR HGB CONC 33.3 g/dL (32.0-36.0); MEAN CORPUSCULAR VOLUME 87 fl (80-97); MONOCYTES % (AUTO) 5.1 % (3-13); PLATELET COUNT 424 10^3/uL (150-450); RED BLOOD COUNT 3.34 10^6/uL (3.72-5.28); RED CELL DISTRIBUTION WIDTH 13.8 % (11.5-14.0); SEGMENTED NEUTROPHILS % (AUTO) 87.7 % (42-78); TOTAL CELLS COUNTED % (AUTO) 100 %; WHITE BLOOD COUNT 19.8 10^3/uL (4.0-10.5)
[2018-11-07 05:57] LABS: ANION GAP 13 (5-19); BLOOD UREA NITROGEN 16 mg/dL (7-20); CALCIUM 8.5 mg/dL (8.4-10.2); CARBON DIOXIDE 21 mmol/L (22-30); CHLORIDE 98 mmol/L (98-107); GLUCOSE 184 mg/dL (75-110); POTASSIUM 4.2 mmol/L (3.6-5.0); SODIUM 131.6 mmol/L (137-145)
[2018-11-07] MEDS: FAMOTIDINE 20 MG TABLET PO SCH ×2 (09:48→21:45)
[2018-11-07] MEDS: OXYCODONE HCL IR 5 MG TABLET PO PRN ×2 (09:49→14:39)
[2018-11-07] MEDS: INSULIN REG, HUMAN 100 UNIT/ML 3 ML VIAL (PYX) SUBCUT PRN ×3 (09:55→18:15)
[2018-11-07 11:29] LABS: VANCOMYCIN,TROUGH 12.6 ug/mL (5.0-20.0)
[2018-11-07] MEDS: VANCOMYCIN HCL 500 MG in DEXTROSE 5%-WATER 100 ML IV SCH ×2 (11:29→21:45)
--- NOTE | 2018-11-07 12:18 | EKG REPORT ---
SEVERITY:- ABNORMAL ECG - SINUS RHYTHM CONSIDER ANTEROSEPTAL INFARCT : Confirmed by: Pawel Byrne MD 07-Nov-2018 12:17:28
[2018-11-07] MEDS: DOCUSATE SODIUM 100 MG CAPSULE PO SCH (14:40)
[2018-11-07] MEDS ORDERED: HYDROMORPHONE HCL INJ/PF 2 MG/ML AMPULE ONE (16:04)
[2018-11-07] MEDS ORDERED: DEXTROSE 40% GEL 15 GM TUBE PO PRN ×2 (16:21)
[2018-11-07] MEDS ORDERED: DEXTROSE 50%-WATER 25 GM/50 ML DISP.SYRIN IV PRN ×2 (16:21)
[2018-11-07] MEDS ORDERED: GLUCAGON,HUMAN RECOMB 1 MG INJ SUBCUT PRN (16:21)
--- NOTE | 2018-11-07 16:27 | PDOC PROGRESS REPORT ---
Subjective Progress Note for:: 11/07/18 Subjective:: Patient complaining of more pain in her thenar eminence of her right hand. Reason For Visit: SEPSIS,RIGHT HAND WOUND INFECTION,HYPONATREMIA Physical Exam Vital Signs: Temp Pulse Resp BP Pulse Ox 36.9 C 91 18 116/53 L 96 11/07/18 16:20 11/07/18 16:20 11/07/18 16:20 11/07/18 16:20 11/07/18 16:20 Intake & Output 11/06/18 11/07/18 11/08/18 06:59 06:59 06:59 Intake Total 1920 1496 300 Output Total 1550 900 Balance 370 596 300 Weight 54.1 kg 53.9 kg Front of Hands Image: 1 - Erythema and swelling of the volar aspect of the hand consistent with the carpal tunnel and thenar region. There is also that 1 cm scab. Very little improvement in the cellulitis from the last couple days of antibiotics. Results Laboratory Results: 11/07/18 04:12 11/07/18 04:12 11/07/18 11/07/18 04:12 04:12 WBC 19.8 H RBC 3.34 L Hgb 9.6 L Hct 29.0 L MCV 87 MCH 28.8 MCHC 33.3 RDW 13.8 Plt Count 424 Seg Neutrophils % 87.7 H Lymphocytes % 6.1 L Monocytes % 5.1 Eosinophils % 0.7 Basophils % 0.4 Absolute Neutrophils 17.4 H Absolute Lymphocytes 1.2 Absolute Monocytes 1.0 Absolute Eosinophils 0.1 Absolute Basophils 0.1 Sodium 131.6 L Potassium 4.2 Chloride 98 Carbon Dioxide 21 L Anion Gap 13 BUN 16 Creatinine 1.07 Est GFR ( Amer) > 60 Est GFR (Non-Af Amer) 52 L Glucose 184 H Calcium 8.5 Magnesium 1.9 11/04/18 19:33 Clean Catch Midstream Urine Culture - Final C.albicans/C.dubliniensis Mixed Urogenital Maddi 11/04/18 11/07/18 12:32 13:47 Creatine Kinase 70 Troponin I 0.014 Impressions: Forearm X-Ray 11/04/18 10:50 IMPRESSION: Diffuse soft tissue swelling about the right thumb. There is a radiodense metallic fragment such as a needle or wire present in the pad of the right thumb. No evidence of subcutaneous emphysema; CT is more sensitive for the evaluation of subcutaneous emphysema. MRI is more sensitive for the evaluation of marrow edema and osteomyelitis. Hand X-Ray 11/04/18 10:50 IMPRESSION: Diffuse soft tissue swelling about the right thumb. There is a radiodense metallic fragment such as a needle or wire present in the pad of the right thumb. No evidence of subcutaneous emphysema; CT is more sensitive for the evaluation of subcutaneous emphysema. MRI is more sensitive for the evaluation of marrow edema and osteomyelitis. Upper Extremity CT 11/05/18 00:00 IMPRESSION: 1. LINEAR METALLIC FOREIGN OBJECT IN THE SOFT TISSUES OF THE PAD OF THE DISTAL THUMB. 2. SKIN DEFECT IN THE PALM WITH EXTENSIVE GAS EXTENDING INTO THE PALMAR SOFT TISSUES SUSPICIOUS FOR INFECTION. NO FLUID COLLECTION OR DRAINABLE ABSCESS. 3. NO SIGNIFICANT BONY FINDINGS. Assessment & Plan - Diagnosis (1) Infection of right hand Is this a current diagnosis for this admission?: Yes Plan: 62-year-old diabetic with right hand cellulitis. Although the CT scan did not show any fluid collection the patient clinically has not progress as anticipated on IV antibiotics. She continues to have pain in the thenar region and on the volar aspect of the wrist consistent with a carpal tunnel. She has persistent pain and her white count has plateaued. Discussed the risk and benefits and the patient agreed to consent for I&D of the right hand. I discussed the case with Dr. Diaz who evaluated the labs and images. Patient will have the procedure done by Dr. Foreman tomorrow in the morning she has been preop made n.p.o. and her heparin has been held.
[2018-11-07] MEDS: NYSTATIN TOPICAL POWDER 15 GM TP SCH (19:33)
[2018-11-07] MEDS: INSULIN GLARGINE,HUM.REC.ANLOG 300 UNIT/3 ML INSULN.PEN SUBCUT SCH (21:45)
[2018-11-08] MEDS: HYDROMORPHONE HCL INJ/PF 2 MG/ML AMPULE IV PRN (01:13)
[2018-11-08] MEDS: PIPERACILLIN SODIUM/TAZOBACTAM 3.375 GM in NORMAL SALINE 100 ML IV SCH ×4 (03:10→22:23)
[2018-11-08 05:42] LABS: ANION GAP 12 (5-19); BLOOD UREA NITROGEN 13 mg/dL (7-20); CALCIUM 8.5 mg/dL (8.4-10.2); CARBON DIOXIDE 23 mmol/L (22-30); CHLORIDE 99 mmol/L (98-107); GLUCOSE 125 mg/dL (75-110); LIPASE 33.8 U/L (23-300); POTASSIUM 4.1 mmol/L (3.6-5.0); SODIUM 134.2 mmol/L (137-145)
--- NOTE | 2018-11-08 09:21 | EKG REPORT ---
SEVERITY:- ABNORMAL ECG - SINUS RHYTHM ANTERIOR INFARCT, OLD : Confirmed by: Pawel Byrne MD 08-Nov-2018 09:20:10
[2018-11-08] MEDS: DOCUSATE SODIUM 100 MG CAPSULE PO SCH (09:46)
[2018-11-08] MEDS: NYSTATIN TOPICAL POWDER 15 GM TP SCH ×2 (10:14→18:28)
[2018-11-08] MEDS: FAMOTIDINE 20 MG TABLET PO SCH ×3 (10:18→22:33)
[2018-11-08] MEDS: VANCOMYCIN HCL 500 MG in DEXTROSE 5%-WATER 100 ML IV SCH ×2 (10:25→23:54)
[2018-11-08] MEDS ORDERED: FENTANYL CITRATE INJ/PF 100 MCG/2 ML AMPUL IV PRN ×2 (10:55)
[2018-11-08] MEDS ORDERED: DIPHENHYDRAMINE HCL 50 MG/ML VIAL IV PRN (10:55)
[2018-11-08] MEDS ORDERED: PROMETHAZINE HCL INJ 25 MG/1 ML VIAL IV PRN (10:55)
[2018-11-08] MEDS ORDERED: MEPERIDINE HCL/PF INJ 25 MG/1 ML DISP.SYRIN IV PRN (10:55)
[2018-11-08] MEDS ORDERED: FENTANYL CITRATE INJ/PF 100 MCG/2 ML AMPUL ONE ×2 (11:32→13:34)
[2018-11-08] MEDS ORDERED: MIDAZOLAM 2 MG/2 ML INJ ONE (11:32)
[2018-11-08] MEDS ORDERED: PROPOFOL INJ 200 MG/20 ML VIAL IV ONE (11:33)
[2018-11-08] MEDS ORDERED: ONDANSETRON HCL INJ/PF 4 MG/2 ML SDV ONE (11:33)
[2018-11-08] MEDS ORDERED: BACITRACIN INJ 50,000 UNIT VIAL ONE (11:43)
[2018-11-08] MEDS ORDERED: LIDOCAINE 1% INJ-PF (10 MG/ML) 30 ML SDV ONE (11:43)
--- NOTE | 2018-11-08 11:54 | PDOC PROGRESS REPORT ---
Subjective Progress Note for:: 11/08/18 Subjective:: Patient presented to the hospital on 11/04/18 with redness swelling and pain in her right hand. Patient continued to have persistent pain, swelling and increasing white count. Patient denies IV drug abuse but does have history of severe diabetes. She also noted it slowly began when she fell onto her right hand earlier in the week. Reason For Visit: SEPSIS,RIGHT HAND WOUND INFECTION,HYPONATREMIA Physical Exam Vital Signs: Temp Pulse Resp BP Pulse Ox 97.2 F 86 16 144/76 H 98 11/08/18 09:48 11/08/18 09:48 11/08/18 09:48 11/08/18 09:48 11/08/18 09:48 Intake & Output 11/07/18 11/08/18 11/09/18 06:59 06:59 06:59 Intake Total 1496 1420 Output Total 900 1000 Balance 596 420 Weight 53.9 kg 53.5 kg Musculoskeletal exam: PRESENT: other - Right hand: erythema volarly extending just proximal to the wrist flexion crease. Open wound along the mid palm at the level of White's cardinal line. Exquisite tenderness along the thenar eminence and mid palm. Digits wrist and IP joint flexion. No tenderness on the flexor sheath throughout index through small finger. Cap refill approximately 3 seconds with normal skin turgor. Hypoesthesia on the distal tip. Limited motion secondary to pain. Streaking erythema along the volar aspect of the forearm. Results Laboratory Results: 11/07/18 04:12 11/08/18 04:12 11/08/18 04:12 Sodium 134.2 L Potassium 4.1 Chloride 99 Carbon Dioxide 23 Anion Gap 12 BUN 13 Creatinine 1.00 Est GFR ( Amer) > 60 Est GFR (Non-Af Amer) 56 L Glucose 125 H Calcium 8.5 Lipase 33.8 11/04/18 11/07/18 12:32 13:47 Creatine Kinase 70 Troponin I 0.014 Impressions: Forearm X-Ray 11/04/18 10:50 IMPRESSION: Diffuse soft tissue swelling about the right thumb. There is a radiodense metallic fragment such as a needle or wire present in the pad of the right thumb. No evidence of subcutaneous emphysema; CT is more sensitive for the evaluation of subcutaneous emphysema. MRI is more sensitive for the evaluation of marrow edema and osteomyelitis. Hand X-Ray 11/04/18 10:50 IMPRESSION: Diffuse soft tissue swelling about the right thumb. There is a radiodense metallic fragment such as a needle or wire present in the pad of the right thumb. No evidence of subcutaneous emphysema; CT is more sensitive for the evaluation of subcutaneous emphysema. MRI is more sensitive for the evaluat ion of marrow edema and osteomyelitis. Upper Extremity CT 11/05/18 00:00 IMPRESSION: 1. LINEAR METALLIC FOREIGN OBJECT IN THE SOFT TISSUES OF THE PAD OF THE DISTAL THUMB. 2. SKIN DEFECT IN THE PALM WITH EXTENSIVE GAS EXTENDING INTO THE PALMAR SOFT TISSUES SUSPICIOUS FOR INFECTION. NO FLUID COLLECTION OR DRAINABLE ABSCESS. 3. NO SIGNIFICANT BONY FINDINGS. Assessment & Plan - Diagnosis (1) Infection of right hand Is this a current diagnosis for this admission?: Yes Plan: Patient sustained injury to her right hand after a fall. Denies history of IV drug abuse. Does have evidence of a foreign body in her thumb but this is not at the level of patient's current complaints or likely source of patient's infection. She does have significant redness and swelling throughout the thenar eminence and palm thus I have recommended operative intervention which includes open irrigation and debridement of the thenar eminence with carpal tunnel release concomitantly given the severity of her infection and concern of early development of horseshoe abscess. We have discussed risks and benefits of the surgical procedure and patient's severe diabetes given this she is at high risk for recurrent infection, wound healing problems and may require repeat operative intervention I have explained this to the patient and daughter at this point they have elected to proceed with operative intervention
--- NOTE | 2018-11-08 13:19 | Operative Report ---
Operative Report DATE OF SURGERY: 11/08/18 PREOPERATIVE DIAGNOSIS: Right hand infection POSTOPERATIVE DIAGNOSIS: Right Hand Horshoe Abscess OPERATION: Complicated Irrigation and excisiona debridement right horshoe abscess SURGEON: SEVERIANO TRAN ANESTHESIA: LMAC TISSUE REMOVED OR ALTERED: Aerobic, anaerobic AFB and fungal cultures COMPLICATIONS: None ESTIMATED BLOOD LOSS: Minimal PROCEDURE: Indication for above procedure: 62-year-old female who developed redness and swelling in her right hand this previous Saturday. She presents emergency room with worsening redness and swelling she was placed on IV antibiotics but failed to see significant improvement patient CT scan was demonstrated no evidence of abscess however tender to have persistent pain. Given the severity of her infection and no clinical improvement decision was made to proceed with operative intervention. Procedure In Detail: Patient was seen and evaluated in the preoperative holding area. The RIGHT upper extremity was initialized and marked. Patient receiving IV antibiotics scheduled. Patient was taken back to the operative room where transferred operative table. Patient was then placed under MAC anesthesia. Once adequately anesthetized, a nonsterile tourniquet was placed on the upper extremity. A surgical team debriefing was performed ensuring all instrumentation was available, the surgical procedure was discussed with possible concerns reviewed. Skin was prepped with alcohol and 30cc of 1% lidocaine without epinephrine was injected locally and w/in carpal canal. The upper extremity was prepped with Betadine and draped in a sterile fashion. A timeout was done identifying correct patient, procedure and extremity everyone in attendance agree with this and verbalized no concerns.The extremity was then elevated the tourniquet was inflated to 250 mmHg. Skin incision was made along the radial border of the ring finger extending proximal to the wrist flexion crease curved ulnarly. Blunt dissection was performed. Palmar fascia was excised exposing the transverse carpal ligament. Transverse carpal ligament was then incised including the volar antebrachial fashion within the carpal canal there was notable dishwater appearing fluid/purulence which extended ulnarly and radially. Partial synovectomy of the flexor sheath was performed. The median nerve was notably compressed along the carpal canal. Purulence extended proximally and dorsal to the volar antebrachial fascia. This area was decompressed. A second skin incision was made along the thenar eminence blunt dissection performed there was notable purulence and dishwater appearing fluid in the thenar eminence as well as the hypothenar evidence where an additional incision was made. Blunt dissection was performed in both regions and was followed towards the palm where the abscess continued. Wound was copiously irrigated with saline with bacitracin and then additional saline without bacitracin. Any nonviable tissue including skin, fascia and muscle was excised. Last a skin incision was made dorsal along the thenar eminence which also demonstrated purulence. There is no evidence of extension along the dorsum of the hand. All nonviable tissue was sent to pathology for aerobic anaerobic and AFB and fungal cultures. A Melvin drain was then placed from the ulnar bursa to the mid palmar space a second Sandy from the radial dorsal to the mid palmar space. And finally Sandy within the dorsal thenar eminence. Wound was then closed with interrupted 3-0 nylon suture. Wound was dressed Xeroform 4 x 4's and placed in a soft dressing. Tourniquet was deflated. Patient had good peripheral perfusion with improved capillary refill as opposed to a preoperative examination. Sponge counts, instrument counts, needle counts were correct. Patient was then awoken from anesthesia. Transferred from the operating room table to the ope rating room stretcher. There was no intraoperative complications patient tolerated procedure well stable to PACU. Postoperative plan: Patient will continue on IV antibiotics and await culture results. Anticipate patient will require at least an additional 4 days of IV antibiotics and then transition to p.o. antibiotics if she clinically shows improvement.
--- NOTE | 2018-11-08 14:23 | PROGRESS NOTE E ---
Progress Note NAME: RAMAN MANCIA : 1955 AGE: 62Y DATE: 11/07/2018 ROOM: 536 SUBJECTIVE: The patient is currently lying in bed. The patient still is having right hand pain. The patient has been by Surgery and is to go in the morning. She denies any nausea, vomiting, diarrhea. No shortness of breath, dizziness, chest pain. No fevers or chills. The patient has been afebrile. Blood pressures have been in good range. The patient has not voiced any other concerns. REVIEW OF SYSTEMS: The rest of the review of systems is negative. MEDICATIONS: Medications have been reviewed. OBJECTIVE: GENERAL: The patient is a 62-year-old female who is awake, alert, and oriented to person, place, time, and situation. She is verbal, conversational, does not appear to be in any acute distress. VITAL SIGNS: Temperature is 98.4, pulse 91, respirations 18, blood pressure is 116/53, oxygen saturation is 96% on room air. SKIN: Warm and dry. No rash. She is not diaphoretic. HEENT: Pupils equal, round, and reactive to light and accommodation. Conjunctiva is pink. There is no evidence of JVP. CARDIOVASCULAR: Heart is regular. There is no murmur or rub. CHEST: Clear, symmetrical, unlabored. ABDOMEN: Soft, nontender. EXTREMITIES: No clubbing or cyanosis. The patient's right hand is edematous with cellulitis. Bilateral lower extremities are AKA. DIAGNOSTICS: Lab values are as follows: Hematology obtained on 11/07/2018: WBC's are 19.8, hemoglobin is 9.6, hematocrit is 29.0, platelet count is 424,000. Chemistry obtained on 11/07/2018: Sodium is 131, potassium 4.2, chloride is 98, carbon dioxide is 21, BUN 16, creatinine 4.07, glucose 184, calcium is 8.5, magnesium 1.9, troponin is 0.014. IMPRESSION AND PLAN: 1. CELLULITIS OF THE RIGHT HAND. Continue broad-spectrum antibiotic coverage. I do appreciate orthopedic input on this. NPO past midnight for OR in the a.m. 2. DIABETES MELLITUS TYPE 1 ON TYPE 2. The patient does have labile glucoses. Her A1c is not controlled at all. The patient's basal has been increased to 20 so hopefully this will improve. 3. Sepsis. SECONDARY TO NUMBER ONE. The patient appears to be improving. 4. HYPONTREMIA. Continue hydration and follow. 5. HYPERCALCEMIA. This improved with hydration as well. 6. HYPERMAGNESEMIA. Will replete this. DISPOSITION: THE PATIENT IS A DO NOT RESUSCITATE/DO NOT INTUBATE. Pending patient's symptomatology and diagnostic findings, will re-valuate in the a.m. Time spent on this followup, including assessment, plan, physical examination, patient education, review of records, is 25 minutes. DICTATING PHYSICIAN: ANGELA WILEY NP [id number] PHY#: [id number] ID: [id number] JOB#: [id number] ACCT: [id number] cc: > MTDD
[2018-11-08] MEDS: OXYCODONE HCL IR 5 MG TABLET PO PRN (18:30)
--- NOTE | 2018-11-08 20:07 | PROGRESS NOTE E ---
Progress Note NAME: RAMAN MANCIA : 1955 AGE: 62Y DATE: 11/08/2018 ROOM: 536 SUBJECTIVE: Ms. Mancia is currently lying in bed. She is asleep this morning. She just received something for pain. The patient appears to be quite comfortable. The patient is to go to the OR this morning. There has been no reported episodes of vomiting or diarrhea. REVIEW OF SYSTEMS: Unobtainable given the patient's medicated state. MEDICATIONS: Medications have been reviewed. OBJECTIVE: GENERAL: The patient is a 62-year-old female who is currently resting. Does not appear to be distressed. VITAL SIGNS: As follows: Temperature 97.2, pulse 86, respiratory rate is 18, blood pressure 144/76, oxygen saturation 98% on room air. Skin is warm, dry. She is not diaphoretic. HEENT: Mucous membranes appear moist. There is no evidence of JVP, CVS. CHEST: The patient is in sinus rhythm. Chest is symmetrical, unlabored. ABDOMEN: Nondistended. EXTREMITIES: The patient does have diffuse cellulitis of the right hand. It is swollen. The patient has a bilateral AKA. PSYCHIATRIC: The patient is resting. DIAGNOSTICS: Lab values are as follows: Hematology obtained on 11/07/2018: WBC 19.8, hemoglobin 9.6, hematocrit 29.0, platelet count is 424,000. Chemistry obtained on 11/08/2018: Sodium is 132, potassium 4.1, chloride is 99, carbon dioxide 23, BUN 13, creatinine is 1, glucose 173, calcium is 8.5. IMPRESSION AND PLAN: 1. CELLULITIS OF THE RIGHT HAND. Continue the patient's broad-spectrum antibiotic coverage. Appreciate orthopedic input on this. 2. SEPSIS SECONDARY TO #1. Present on admission given the patient's WBC count of 24,000 with evidence of bandemia. Infectious source #1 with tachypnea with a respiratory rate of 24 and hypoxia of 84. 3. DIABETES MELLITUS TYPE 1. The patient does have labile glucose at times. Did increase the patient's basal and glucoses do appear improved. 4. HYPONATREMIA. This is mild. The patient was hydrated. Will follow. 5. HYPOCALCEMIA. Improved with hydration. 6. HYPOMAGNESIMIA. This was repleted. DISPOSITION: THE PATIENT IS DO NOT RESUCITATE/ DO NOT INTUBATE. Pending the patient's symptomatology and diagnostic findings, will reevaluate in the a.m. The patient was scheduled to the OR today. Time spent on this followup, including assessment, plan, physical examination, patient education, review of records, and specialty collaboration is 25 minutes. DICTATING PHYSICIAN: ANGELA WILEY NP [id number] PHY#: [id number] ID: [id number] JOB#: [id number] ACCT: [id number] cc: >
[2018-11-08] MEDS: INSULIN GLARGINE,HUM.REC.ANLOG 300 UNIT/3 ML INSULN.PEN SUBCUT SCH (22:23)
[2018-11-08] MEDS: INSULIN REG, HUMAN 100 UNIT/ML 3 ML VIAL (PYX) SUBCUT PRN (22:23)
[2018-11-09] MEDS: PIPERACILLIN SODIUM/TAZOBACTAM 3.375 GM in NORMAL SALINE 100 ML IV SCH ×4 (03:34→20:26)
[2018-11-09] MEDS: OXYCODONE HCL IR 5 MG TABLET PO PRN ×3 (06:07→20:26)
[2018-11-09 06:39] LABS: HEMATOCRIT 27.2 % (36.0-47.0); MEAN CORPUSCULAR HEMOGLOBIN 28.7 pg (27.0-33.4); MEAN CORPUSCULAR HGB CONC 32.9 g/dL (32.0-36.0); MEAN CORPUSCULAR VOLUME 87 fl (80-97); PLATELET COUNT 455 10^3/uL (150-450); RED BLOOD COUNT 3.12 10^6/uL (3.72-5.28); RED CELL DISTRIBUTION WIDTH 13.8 % (11.5-14.0); WHITE BLOOD COUNT 19.9 10^3/uL (4.0-10.5)
[2018-11-09 07:05] LABS: ANION GAP 11 (5-19); BLOOD UREA NITROGEN 12 mg/dL (7-20); CALCIUM 8.1 mg/dL (8.4-10.2); CARBON DIOXIDE 23 mmol/L (22-30); CHLORIDE 99 mmol/L (98-107); GLUCOSE 270 mg/dL (75-110); POTASSIUM 3.7 mmol/L (3.6-5.0); SODIUM 132.5 mmol/L (137-145)
[2018-11-09] MEDS: INSULIN REG, HUMAN 100 UNIT/ML 3 ML VIAL (PYX) SUBCUT PRN (08:37)
--- NOTE | 2018-11-09 09:19 | PDOC PROGRESS REPORT ---
Subjective Subjective:: Patient presented to the hospital on 11/04/18 with redness swelling and pain in her right hand. Patient continued to have persistent pain, swelling and increasing white count. Patient denies IV drug abuse but does have history of severe diabetes. Patient complains of pain in her right hand. Pain is tolerable with pain medication. Reason For Visit: SEPSIS,RIGHT HAND WOUND INFECTION,HYPONATREMIA Physical Exam Vital Signs: Temp Pulse Resp BP Pulse Ox 98.7 F 82 17 120/51 L 99 11/09/18 08:00 11/09/18 08:00 11/09/18 08:00 11/09/18 08:00 11/09/18 08:00 Intake & Output 11/08/18 11/09/18 11/10/18 06:59 06:59 06:59 Intake Total 1420 3780 Output Total 1000 2455 Balance 420 1325 Weight 53.5 kg 50.1 kg Results Laboratory Results: 11/09/18 05:21 11/09/18 05:21 11/09/18 11/09/18 05:21 05:21 WBC 19.9 H RBC 3.12 L Hgb 9.0 L Hct 27.2 L MCV 87 MCH 28.7 MCHC 32.9 RDW 13.8 Plt Count 455 H Sodium 132.5 L Potassium 3.7 Chloride 99 Carbon Dioxide 23 Anion Gap 11 BUN 12 Creatinine 1.21 Est GFR ( Amer) 54 L Est GFR (Non-Af Amer) 45 L Glucose 270 H Calcium 8.1 L Magnesium 1.8 11/04/18 11/07/18 12:32 13:47 Creatine Kinase 70 Troponin I 0.014 Impressions: Forearm X-Ray 11/04/18 10:50 IMPRESSION: Diffuse soft tissue swelling about the right thumb. There is a radiodense metallic fragment such as a needle or wire present in the pad of the right thumb. No evidence of subcutaneous emphysema; CT is more sensitive for the evaluation of subcutaneous emphysema. MRI is more sensitive for the evaluation of marrow edema and osteomyelitis. Hand X-Ray 11/04/18 10:50 IMPRESSION: Diffuse soft tissue swelling about the right thumb. There is a radiodense metallic fragment such as a needle or wire present in the pad of the right thumb. No evidence of subcutaneous emphysema; CT is more sensitive for the evaluation of subcutaneous emphysema. MRI is more sensitive for the evaluation of marrow edema and osteomyelitis. Upper Extremity CT 11/05/18 00:00 IMPRESSION: 1. LINEAR METALLIC FOREIGN OBJECT IN THE SOFT TISSUES OF THE PAD OF THE DISTAL THUMB. 2. SKIN DEFECT IN THE PALM WITH EXTENSIVE GAS EXTENDING INTO THE PALMAR SOFT TISSUES SUSPICIOUS FOR INFECTION. NO FLUID COLLECTION OR DRAINABLE ABSCESS. 3. NO SIGNIFICANT BONY FINDINGS. Assessment & Plan - Diagnosis (1) Infection of right hand Is this a current diagnosis for this admission?: Yes
[2018-11-09] MEDS: DOCUSATE SODIUM 100 MG CAPSULE PO SCH (10:49)
[2018-11-09] MEDS: VANCOMYCIN HCL 500 MG in DEXTROSE 5%-WATER 100 ML IV SCH ×2 (10:50→22:28)
[2018-11-09] MEDS: FAMOTIDINE 20 MG TABLET PO SCH ×2 (10:50→22:30)
[2018-11-09] MEDS: NYSTATIN TOPICAL POWDER 15 GM TP SCH ×2 (10:50→17:53)
--- NOTE | 2018-11-09 16:07 | PROGRESS NOTE E ---
Progress Note NAME: RAMAN MANCIA : 1955 AGE: 62Y DATE: 11/09/2018 ROOM: 536 SUBJECTIVE: The patient is currently lying in bed. She states that her hand hurts. In spite of operative repair, the patient states she is having a great deal of pain in her hand continuously. The patient denies any other symptoms like nausea, vomiting, diarrhea. No shortness of breath, dizziness, chest pain. No fevers, chills. The patient has been afebrile. Blood pressure has been in a good range, and the patient does not voice any other concerns at this time. BRIEF HISTORY: The patient is a 62-year-old female with a past medical history of severe peripheral vascular disease status post bilateral AKAs. The patient presented to the emergency department with cellulitis of the right hand. The patient was seen and evaluated by the orthopedic service and is now postoperative day #1 of debridement and abscess drainage. The patient was seen by Dr. Diaz. Has been some difficulty getting the patient's pain under control. REVIEW OF SYSTEMS: Rest of review of systems negative. MEDICATIONS: Medications have been reviewed. OBJECTIVE: GENERAL: The patient is a 62-year-old female who is awake, alert. She is oriented to person, place, time, and situation. She is verbal, conversational, does not appear to be in any acute distress. VITAL SIGNS: Temperature is 98.7, pulse 82, respirations 17, blood pressure is 120/51, oxygen saturation is 99% on room air. SKIN: Warm and dry. No rash. She is not diaphoretic. HEENT: Pupils are reactive. Conjunctiva is pink. No evidence of JVP. CARDIOVASCULAR SYSTEM: Heart is regular. There is no murmur or rub. CHEST: Clear, symmetrical, unlabored. ABDOMEN: Soft, nontender. EXTREMITIES: No edema. Bilateral AKA. The patient's right hand is wrapped in appropriate dressing. DIAGNOSTICS: Lab values are as follows: Hematology obtained on 11/09/2018: WBCs are 19.9, hemoglobin is 9.0, hematocrit is 27.6, platelet count is 455,000. Chemistry obtained on 11/09/2018: Sodium is 132, potassium 3.7, chloride is 99, carbon dioxide 23, BUN 12, creatinine is 1.21, glucose is 70, calcium is 8.1, magnesium is 1.8. IMPRESSION AND PLAN: 1. CELLULITIS OF THE RIGHT HAND STATUS POST ABSCESS DRAIN DEBRIDEMENT. The patient is postoperative day #1. I do appreciate Orthopedic input on this and continue current antibiotic coverage as per Orthopedic recommendation. 2. SEPSIS SECONDARY TO #1. THIS WAS GIVEN THE PATIENT'S PRESENTING WHITE COUNT OF 24,000 WITH EVIDENCE OF BANDEMIA. INFECTIOUS SOURCE IS #1 WITH TACHYPNEA AND WITH A RESPIRATORY RATE OF 24. 3. DIABETES MELLITUS TYPE 1. THE PATIENT HAS A LABILE GLUCOSE CONTROL. Apparently, yesterday, one of the patient's basal doses was held because she was going to the OR and did not have a high. Will continue to follow. 4. HYPONATREMIA, MILD. The patient was hydrated. Will follow. 5. HYPERCALCEMIA. This improved with hydration. 6. HYPOMAGNESEMIA. This was repleted. DISPOSITION: The patient is a DNR/DNI. Pending patient's symptomatology and diagnostic findings, will re-evaluate in the a.m. Do appreciate Orthopedic input on this. Time spent on this followup including assessment, plan, physical examination, patient education, and review of records is 25 minutes. DICTATING PHYSICIAN: ANGELA WILEY NP [id number] PHY#: [id number] ID: [id number] JOB#: [id number] ACCT: [id number] cc: >
[2018-11-09] MEDS: INSULIN LISPRO 100 UNIT/ML 3 ML VIAL SUBCUT PRN (17:52)
[2018-11-10] MEDS: PIPERACILLIN SODIUM/TAZOBACTAM 3.375 GM in NORMAL SALINE 100 ML IV SCH ×4 (03:26→21:07)
[2018-11-10] MEDS: OXYCODONE HCL IR 5 MG TABLET PO PRN ×4 (05:33→18:21)
[2018-11-10 07:10] LABS: HEMATOCRIT 26.9 % (36.0-47.0); HEMOGLOBIN 8.9 g/dL (12.0-15.5); MEAN CORPUSCULAR HEMOGLOBIN 28.8 pg (27.0-33.4); MEAN CORPUSCULAR HGB CONC 33.2 g/dL (32.0-36.0); MEAN CORPUSCULAR VOLUME 87 fl (80-97); PLATELET COUNT 450 10^3/uL (150-450); RED CELL DISTRIBUTION WIDTH 13.9 % (11.5-14.0); WHITE BLOOD COUNT 14.6 10^3/uL (4.0-10.5)
[2018-11-10 07:43] LABS: ANION GAP 11 (5-19); BLOOD UREA NITROGEN 11 mg/dL (7-20); CALCIUM 8.3 mg/dL (8.4-10.2); CARBON DIOXIDE 22 mmol/L (22-30); CHLORIDE 101 mmol/L (98-107); GLUCOSE 241 mg/dL (75-110); SODIUM 133.6 mmol/L (137-145)
--- NOTE | 2018-11-10 08:10 | PDOC PROGRESS REPORT ---
Subjective Progress Note for:: 11/10/18 Subjective:: Patient presented to the hospital on 11/04/18 with redness swelling and pain in her right hand. Patient continued to have persistent pain, swelling and increasing white count. Patient denies IV drug abuse but does have history of severe diabetes. Patient complains of pain in her right hand. She has noted the pain is somewhat improved after surgery. No issues overnight. Reason For Visit: SEPSIS,RIGHT HAND WOUND INFECTION,HYPONATREMIA Physical Exam Vital Signs: Temp Pulse Resp BP Pulse Ox 98.1 F 79 17 123/59 L 97 11/10/18 04:34 11/10/18 07:00 11/10/18 04:34 11/10/18 04:34 11/10/18 04:34 Intake & Output 11/09/18 11/10/18 11/11/18 06:59 06:59 06:59 Intake Total 3780 1440 Output Total 2455 505 Balance 1325 935 Weight 50.1 kg 60.5 kg Musculoskeletal exam: PRESENT: other - Right hand: Dressing changed. Residual erythema along the palm of the hand. No palpable fluctuance. Cloudy drainage from the wounds no evidence of purulent drainage. Tenderness to palpation along the mid palmar aspect no pain thenar or hypo-thenar eminence. IP joints rest in a flexed position. Intact sensation to light touch. No evidence of streaking erythema. Results Laboratory Results: 11/10/18 06:33 11/10/18 06:33 11/10/18 11/10/18 06:33 06:33 WBC 14.6 H RBC 3.10 L Hgb 8.9 L Hct 26.9 L MCV 87 MCH 28.8 MCHC 33.2 RDW 13.9 Plt Count 450 Sodium 133.6 L Potassium 4.0 Chloride 101 Carbon Dioxide 22 Anion Gap 11 BUN 11 Creatinine 1.11 Est GFR ( Amer) > 60 Est GFR (Non-Af Amer) 50 L Glucose 241 H Calcium 8.3 L Magnesium 1.8 11/04/18 12:32 Blood Blood Culture - Final NO GROWTH IN 5 DAYS 11/04/18 11:25 Blood Blood Culture - Final NO GROWTH IN 5 DAYS 11/04/18 11/07/18 12:32 13:47 Creatine Kinase 70 Troponin I 0.014 Impressions: Forearm X-Ray 11/04/18 10:50 IMPRESSION: Diffuse soft tissue swelling about the right thumb. There is a radiodense metallic fragment such as a needle or wire present in the pad of the right thumb. No evidence of subcutaneous emphysema; CT is more sensitive for the evaluation of subcutaneous emphysema. MRI is more sensitive for the evaluation of marrow edema and osteomyelitis. Hand X-Ray 11/04/18 10:50 IMPRESSION: Diffuse soft tissue swelling about the right thumb. There is a radiodense metallic fragment such as a needle or wire present in the pad of the right thumb. No evidence of subcutaneous emphysema; CT is more sensitive for the evaluation of subcutaneous emphysema. MRI is more sensitive for the evaluation of marrow edema and osteomyelitis. Upper Extremity CT 11/05/18 00:00 IMPRESSION: 1. LINEAR METALLIC FOREIGN OBJECT IN THE SOFT TISSUES OF THE PAD OF THE DISTAL THUMB. 2. SKIN DEFECT IN THE PALM WITH EXTENSIVE GAS EXTENDING INTO THE PALMAR SOFT TISSUES SUSPICIOUS FOR INFECTION. NO FLUID COLLECTION OR DRAINABLE ABSCESS. 3. NO SIGNIFICANT BONY FINDINGS. Assessment & Plan - Diagnosis (1) Infection of right hand Is this a current diagnosis for this admission?: Yes Plan: Postop day #2 status post irrigation debridement mid palmar abscess 1. We will continue vancomycin and Zosyn awaiting culture results, would recommend antifungal given culture results as per hospitalist recommendation.. 2. Continue elevation of the right upper extremity. 3. Anticipate patient will require further IV antibiotics until clinical improvement is seen. Continues to have persistent leukocytosis there is the possibility she may require repeat irrigation and debridement given the severity of her infection.
[2018-11-10] MEDS: INSULIN LISPRO 100 UNIT/ML 3 ML VIAL SUBCUT PRN ×4 (09:04→22:52)
[2018-11-10] MEDS: VANCOMYCIN HCL 500 MG in DEXTROSE 5%-WATER 100 ML IV SCH ×2 (09:50→22:14)
[2018-11-10] MEDS: FAMOTIDINE 20 MG TABLET PO SCH ×2 (09:51→22:14)
[2018-11-10] MEDS: DOCUSATE SODIUM 100 MG CAPSULE PO SCH (09:51)
[2018-11-10] MEDS: NYSTATIN TOPICAL POWDER 15 GM TP SCH ×2 (09:51→17:14)
--- NOTE | 2018-11-10 17:56 | PDOC PROGRESS REPORT ---
Subjective Progress Note for:: 11/10/18 Subjective:: Patient seems to be in good spirits today. She reports much improvement since being admitted. We discussed her blood glucose control today. It seems she relayed to nurse and she was worried about her elevated blood glucose while in the hospital. However her blood glucose is lower in the hospital, even though it has been in the 200s, than it has been running at home. Her A1c is greater than 12. We discussed the importance of compliance with medications. She has no acute concerns and denies fever and chills. Reason For Visit: SEPSIS,RIGHT HAND WOUND INFECTION,HYPONATREMIA Physical Exam Vital Signs: Temp Pulse Resp BP Pulse Ox 98.4 F 82 16 105/67 97 11/10/18 15:25 11/10/18 15:25 11/10/18 15:25 11/10/18 15:25 11/10/18 15:25 Intake & Output 11/09/18 11/10/18 11/11/18 06:59 06:59 06:59 Intake Total 3780 1440 772 Output Total 2455 505 970 Balance 1325 935 -198 Weight 50.1 kg 60.5 kg General appearance: PRESENT: no acute distress, other - Older than stated age. Head exam: PRESENT: atraumatic, normocephalic Eye exam: PRESENT: conjunctiva pink, EOMI, PERRLA. ABSENT: scleral icterus Ear exam: PRESENT: normal external ear exam Mouth exam: PRESENT: moist, tongue midline Teeth exam: PRESENT: other - Limited dentation. Respiratory exam: PRESENT: other - Good airflow bilateral. No appreciable rhonchi, crackles, wheeze. Cardiovascular exam: PRESENT: RRR, +S1, +S2 GI/Abdominal exam: PRESENT: normal bowel sounds, soft. ABSENT: distended, guarding, mass, organolmegaly, rebound, tenderness Rectal exam: PRESENT: deferred Extremities exam: PRESENT: other - Trace bilateral lower extremity edema. Bilateral lower extremity amputations above the knee. Musculoskeletal exam: PRESENT: other - Right upper extremity elevated right hand bandage. Neurological exam: PRESENT: alert, awake, oriented to person, oriented to place, oriented to time, oriented to situation, CN II-XII grossly intact. ABSENT: motor sensory deficit Psychiatric exam: PRESENT: normal mood Results Laboratory Results: 11/10/18 06:33 11/10/18 06:33 11/10/18 11/10/18 06:33 06:33 WBC 14.6 H RBC 3.10 L Hgb 8.9 L Hct 26.9 L MCV 87 MCH 28.8 MCHC 33.2 RDW 13.9 Plt Count 450 Sodium 133.6 L Potassium 4.0 Chloride 101 Carbon Dioxide 22 Anion Gap 11 BUN 11 Creatinine 1.11 Est GFR ( Amer) > 60 Est GFR (Non-Af Amer) 50 L Glucose 241 H Calcium 8.3 L Magnesium 1.8 11/04/18 11/07/18 12:32 13:47 Creatine Kinase 70 Troponin I 0.014 Impressions: Forearm X-Ray 11/04/18 10:50 IMPRESSION: Diffuse soft tissue swelling about the right thumb. There is a radiodense metallic fragment such as a needle or wire present in the pad of the right thumb. No evidence of subcutaneous emphysema; CT is more sensitive for the evaluation of subcutaneous emphysema. MRI is more sensitive for the evaluation of marrow edema and osteomyelitis. Hand X-Ray 11/04/18 10:50 IMPRESSION: Diffuse soft tissue swelling about the right thumb. There is a radiodense metallic fragment such as a needle or wire present in the pad of the right thumb. No evidence of subcutaneous emphysema; CT is more sensitive for the evaluation of subcutaneous emphysema. MRI is more sensitive for the evalu ation of marrow edema and osteomyelitis. Upper Extremity CT 11/05/18 00:00 IMPRESSION: 1. LINEAR METALLIC FOREIGN OBJECT IN THE SOFT TISSUES OF THE PAD OF THE DISTAL THUMB. 2. SKIN DEFECT IN THE PALM WITH EXTENSIVE GAS EXTENDING INTO THE PALMAR SOFT TISSUES SUSPICIOUS FOR INFECTION. NO FLUID COLLECTION OR DRAINABLE ABSCESS. 3. NO SIGNIFICANT BONY FINDINGS. 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 Is this a current diagnosis for this admission?: Yes (3) Hyperglycemia Is this a current diagnosis for this admission?: Yes (4) Infection of right hand Is this a current diagnosis for this admission?: Yes (5) Open wound of right hand Is this a current diagnosis for this admission?: Yes - Time Time Spent with patient: 15-24 minutes Medications reviewed and adjusted accordingly: Yes - Inpatient Certification Based on my medical assessment, after consideration of the patient's comorbidities, presenting symptoms, or acuity I expect that the services needed warrant INPATIENT care.: Yes I certify that my determination is in accordance with my understanding of Medicare's requirements for reasonable and necessary INPATIENT services [42 CFR 412.3e].: Yes - Plan Summary Plan Summary: 1. Cellulitis. Right hand. Status post abscess drainage and debridement performed by surgery on November 08. Continue with current antibiotic coverage per orthopedic recommendations. 2. Sepsis secondary to #1. Much improved continue with current antibiotics. 3. Uncontrolled diabetes mellitus. Continue with current coverage. Given patient's recent diagnosis of sepsis is also be a reason for her elevated blood sugars, and did not want to make excessive medication movements can lead to hypoglycemia. 4. Electrolyte abnormalities. Monitoring and addressing.
--- NOTE | 2018-11-10 19:25 | Progress Note ---
Provider Note Provider Note: ID Consult Note Asked to review patient's chart by Pharmacy. Pt not seen or examined. Reviwed VS, provider notes, labs, imaging reports. Ms Tan is a 62 year old woman with PMH including diabetes and bilateral lower extremity amputation who presented to the ED on 11/04/18 with worsening R hand pain and swelling, reported to be going on for 2 weeks. On exam, she was noted on exam to have poor dentition, BLE amputations, and approximately 1 cm round abrasion without expressible purulence in palmar aspect of her hand at base of right thumb, tenderness to palpation over thenar eminence, erythema and swelling of R hand, and pain on ROM of thumb. Initial labs included leukocytosis 24 WBC, thrombocytosis 563 plts, low sodium and chloride and elevated blood glucose 684. Blood cultures were drawn, which have remained negative. Plain films of the forearm and R hand were performed that showed a metallic fragment in the pad of her R thumb. Postcontrast CT scan of the arm showed a linear metallic foreign object in the pad of the distal thumb and the skin defect with gas extending into the palmar soft tissues of the hand without discrete fluid collection. Surgery was consulted. She did not have clinical improvement after being managed for hyperglycemia, dehydration, and the infection with broad spectrum IV antibiotics so she was taken on 11/08/18 to the OR for irrigation and excisional debridement of R hand horseshoe abscess with placement of 2 [place] drains. Cultures taken in the OR have been preliminarily reported as showing growth of GPCs in clusters, Group B Strep, and yeast that is not C albicans. No Gram negatives were seen on Gram stain or reported to date. Empirically pt has been receiving vancomycin and Zosyn. Impression/Recommendations polymicrobial palmar abscess R hand - Culture report is only preliminarily reported at this point. With no GNRs identified on Gram stain, I doubt that pt will end up needing the antipseudomonal activity of Zosyn, but antibiotics can be narrowed once finalized in a day or two. - Yeast that grew from the operative specimen is only preliminarily reported as "not Sarahi albicans". Anticipated susceptibility to fluconazole can be inferred by the species, but this is not yet known. Recommend starting micafungin 100 mg IV once daily until this yeast species is identified. Alexander Workman MD [facility] Infectious Diseases pager [phone]
[2018-11-11] MEDS: PIPERACILLIN SODIUM/TAZOBACTAM 3.375 GM in NORMAL SALINE 100 ML IV SCH ×3 (02:24→14:11)
[2018-11-11 04:50] LABS: ABSOLUTE BASOPHILS # (AUTO) 0.1 10^3/uL (0.0-0.2); ABSOLUTE EOSINOPHILS # (AUTO) 0.3 10^3/uL (0.0-0.6); ABSOLUTE LYMPHOCYTES (AUTO) 2.1 10^3/uL (0.5-4.7); ABSOLUTE NEUT (AUTO) 11.1 10^3/uL (1.7-8.2); BASOPHILS % (AUTO) 0.4 % (0-2); EOSINOPHILS % (AUTO) 2.1 % (0-6); HEMOGLOBIN 9.1 g/dL (12.0-15.5); LYMPHOCYTES % (AUTO) 14.6 % (13-45); MEAN CORPUSCULAR HEMOGLOBIN 28.4 pg (27.0-33.4); MEAN CORPUSCULAR HGB CONC 32.5 g/dL (32.0-36.0); MEAN CORPUSCULAR VOLUME 87 fl (80-97); MONOCYTES % (AUTO) 6.9 % (3-13); PLATELET COUNT 483 10^3/uL (150-450); RED BLOOD COUNT 3.22 10^6/uL (3.72-5.28); TOTAL CELLS COUNTED % (AUTO) 100 %; WHITE BLOOD COUNT 14.6 10^3/uL (4.0-10.5)
[2018-11-11 05:09] LABS: ANION GAP 8 (5-19); BLOOD UREA NITROGEN 10 mg/dL (7-20); CALCIUM 8.2 mg/dL (8.4-10.2); CARBON DIOXIDE 25 mmol/L (22-30); CHLORIDE 103 mmol/L (98-107); GLUCOSE 169 mg/dL (75-110); POTASSIUM 3.6 mmol/L (3.6-5.0); SODIUM 135.5 mmol/L (137-145)
[2018-11-11] MEDS: HYDROMORPHONE HCL INJ/PF 2 MG/ML AMPULE IV PRN ×2 (05:26→20:00)
[2018-11-11] MEDS: INSULIN LISPRO 100 UNIT/ML 3 ML VIAL SUBCUT PRN ×4 (08:56→22:35)
[2018-11-11] MEDS: DOCUSATE SODIUM 100 MG CAPSULE PO SCH (10:13)
[2018-11-11] MEDS: OXYCODONE HCL IR 5 MG TABLET PO PRN ×2 (10:20→17:46)
[2018-11-11] MEDS: NYSTATIN TOPICAL POWDER 15 GM TP SCH ×2 (10:20→17:48)
[2018-11-11] MEDS: FAMOTIDINE 20 MG TABLET PO SCH ×2 (10:20→22:03)
[2018-11-11] MEDS: VANCOMYCIN HCL 500 MG in DEXTROSE 5%-WATER 100 ML IV SCH (10:20)
--- NOTE | 2018-11-11 14:01 | Progress Note ---
Provider Note Provider Note: ID Consult - Brief update Intraoperative culture result from hand abscess updated to show growth of MSSA, Group B Strep and yeast that is not C albicans. With culture now finalized and no GNRs identified from the Gram stain or the culture, Zosyn can be discontinued. With no MRSA isolated, vancomycin should be discontinued. Beta lactams are generally better agents than vancomycin, as long as the organism is susceptible. Now that the susceptibilites are back, pt should receive IV cefazolin 2 g q8h for the MSSA and Group B Strep species and micafungin for the Sarahi species. Alexander Workman MD [facility] Infectious Diseases pager [phone]
--- NOTE | 2018-11-11 15:33 | PDOC PROGRESS REPORT ---
Subjective Progress Note for:: 11/11/18 Subjective:: Patient reports pain in right hand. Inadequate pain relief with current pain medication regimen. She has not been on gabapentin prior. Antibiotics and antifungal medications were recommended by infectious disease. There is recommendations will be followed. She will be started on IV ceftezole and and IV micafungin. Patient does feel the hand is improving. The area around what is bandaged is less swollen and less erythematous. Blood glucose levels continue to be uncontrolled. Reason For Visit: SEPSIS,RIGHT HAND WOUND INFECTION,HYPONATREMIA Physical Exam Vital Signs: Temp Pulse Resp BP Pulse Ox 98.6 F 90 17 126/71 H 97 11/11/18 13:00 11/11/18 13:00 11/11/18 13:00 11/11/18 13:00 11/11/18 13:00 Intake & Output 11/10/18 11/11/18 11/12/18 06:59 06:59 06:59 Intake Total 1440 1122 200 Output Total 505 1870 Balance 935 -748 200 Weight 60.5 kg 58.4 kg Results Laboratory Results: 11/11/18 04:37 11/11/18 04:37 11/11/18 11/11/18 04:37 04:37 WBC 14.6 H RBC 3.22 L Hgb 9.1 L Hct 28.0 L MCV 87 MCH 28.4 MCHC 32.5 RDW 14.0 Plt Count 483 H Seg Neutrophils % 76.0 Lymphocytes % 14.6 Monocytes % 6.9 Eosinophils % 2.1 Basophils % 0.4 Absolute Neutrophils 11.1 H Absolute Lymphocytes 2.1 Absolute Monocytes 1.0 Absolute Eosinophils 0.3 Absolute Basophils 0.1 Sodium 135.5 L Potassium 3.6 Chloride 103 Carbon Dioxide 25 Anion Gap 8 BUN 10 Creatinine 1.07 Est GFR ( Amer) > 60 Est GFR (Non-Af Amer) 52 L Glucose 169 H Calcium 8.2 L 11/08/18 12:30 Hand - Palm Of Hand Gram Stain - Final 11/08/18 12:30 Hand - Palm Of Hand Wound Culture - Final Staphylococcus Aureus Group B Beta Streptococcus Yeast, Not Sarahi Albicans 11/04/18 11/07/18 12:32 13:47 Creatine Kinase 70 Troponin I 0.014 Impressions: Forearm X-Ray 11/04/18 10:50 IMPRESSION: Diffuse soft tissue swelling about the right thumb. There is a radiodense metallic fragment such as a needle or wire present in the pad of the right thumb. No evidence of subcutaneous emphysema; CT is more sensitive for the evaluation of subcutaneous emphysema. MRI is more sensitive for the evaluation of marrow edema and osteomyelitis. Hand X-Ray 11/04/18 10:50 IMPRESSION: Diffuse soft tissue swelling about the right thumb. There is a radiodense metallic fragment such as a needle or wire present in the pad of the right thumb. No evidence of subcutaneous emphysema; CT is more sensitive for the evaluation of subcutaneous emphysema. MRI is more sensitive for the evaluation of marrow edema and osteomyelitis. Upper Extremity CT 11/05/18 00:00 IMPRESSION: 1. LINEAR METALLIC FOREIGN OBJECT IN THE SOFT TISSUES OF THE PAD OF THE DISTAL THUMB. 2. SKIN DEFECT IN THE PALM WITH EXTENSIVE GAS EXTENDING INTO THE PALMAR SOFT TISSUES SUSPICIOUS FOR INFECTION. NO FLUID COLLECTION OR DRAINABLE ABSCESS. 3. NO SIGNIFICANT BONY FINDINGS. 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 Is this a current diagnosis for this admission?: Yes (3) Hyperglycemia Is this a current diagnosis for this admission?: Yes (4) Infection of right hand Is this a current diagnosis for this admission?: Yes (5) Open wound of right hand Is this a current diagnosis for this admission?: Yes - Time Time Spent with patient: 15-24 minutes Medications reviewed and adjusted accordingly: Yes - Inpatient Certification Based on my medical assessment, after consideration of the patient's comorbidities, presenting symptoms, or acuity I expect that the services needed warrant INPATIENT care.: Yes I certify that my determination is in accordance with my understanding of Medicare's requirements for reasonable and necessary INPATIENT services [42 CFR 412.3e].: Yes - Plan Summary Plan Summary: 1. Right hand cellulitis. Status post abscess drainage and debridement performe d by surgery on November 08. Change antibiotics and start antifungal per infectious disease recommendations. IV 2 g cefazolin every 8 hours. Micafungin IV 150 mg daily. White blood cell count is trending down. Clinically the area around her hand that is not bandaged seems to be improving. Patient does report improvements suspected. Afebrile. Stable blood pressure. 2. Sepsis secondary to #1. Much improved continue with current antibiotics. 3. Uncontrolled diabetes mellitus. Continue with current coverage. Some elevated blood glucose levels possibly related to sepsis on admission. Will restart patient's home insulin at a dose lower than her home dose in order to try to prevent having a soda of hypoglycemia. Restart Lantus 5 mg twice daily. 4. Electrolyte abnormalities. Monitoring and addressing. Disposition: Continue with antibiotics and antifungals per infectious disease recommendations. Patient continues to need IV antibiotics and given her uncontrolled diabetes mellitus she is a risk for serious life, getting infections.
[2018-11-11] MEDS: MICAFUNGIN SODIUM 150 MG in NORMAL SALINE 100 ML IV SCH (17:47)
[2018-11-11] MEDS: INSULIN GLARGINE,HUM.REC.ANLOG 1,000 UNIT/10 ML UNIT SUBCUT SCH (17:47)
--- NOTE | 2018-11-11 21:42 | PDOC PROGRESS REPORT ---
Subjective Subjective:: Patient presented to the hospital on 11/04/18 with redness swelling and pain in her right hand. Patient continued to have persistent pain, swelling and increasing white count. Patient denies IV drug abuse but does have history of severe diabetes. Patient complains of pain in her right hand. She has noted the pain is somewhat improved after surgery. No issues overnight. Reason For Visit: SEPSIS,RIGHT HAND WOUND INFECTION,HYPONATREMIA Physical Exam Vital Signs: Temp Pulse Resp BP Pulse Ox 98.6 F 90 17 126/71 H 97 11/11/18 13:00 11/11/18 13:00 11/11/18 13:00 11/11/18 13:00 11/11/18 13:00 Intake & Output 11/10/18 11/11/18 11/12/18 06:59 06:59 06:59 Intake Total 1440 1122 200 Output Total 505 1870 Balance 935 -748 200 Weight 60.5 kg 58.4 kg Musculoskeletal exam: PRESENT: other - Right hand: Dressing change today. Cloudy drainage noted along the palm no gross purulence.. Residual erythema along the thenar eminence. Drains removed today. Hypoesthesia all distal tips unchanged compared to previous examination. IP joint range of motion notably improved. No pain with passive stretch. Results Laboratory Results: 11/11/18 04:37 11/11/18 04:37 11/11/18 11/11/18 04:37 04:37 WBC 14.6 H RBC 3.22 L Hgb 9.1 L Hct 28.0 L MCV 87 MCH 28.4 MCHC 32.5 RDW 14.0 Plt Count 483 H Seg Neutrophils % 76.0 Lymphocytes % 14.6 Monocytes % 6.9 Eosinophils % 2.1 Basophils % 0.4 Absolute Neutrophils 11.1 H Absolute Lymphocytes 2.1 Absolute Monocytes 1.0 Absolute Eosinophils 0.3 Absolute Basophils 0.1 Sodium 135.5 L Potassium 3.6 Chloride 103 Carbon Dioxide 25 Anion Gap 8 BUN 10 Creatinine 1.07 Est GFR ( Amer) > 60 Est GFR (Non-Af Amer) 52 L Glucose 169 H Calcium 8.2 L 11/08/18 12:30 Hand - Palm Of Hand Gram Stain - Final 11/08/18 12:30 Hand - Palm Of Hand Wound Culture - Final Staphylococcus Aureus Group B Beta Streptococcus Yeast, Not Sarahi Albicans 11/04/18 11/07/18 12:32 13:47 Creatine Kinase 70 Troponin I 0.014 Impressions: Forearm X-Ray 11/04/18 10:50 IMPRESSION: Diffuse soft tissue swelling about the right thumb. There is a radiodense metallic fragment such as a needle or wire present in the pad of the right thumb. No evidence of subcutaneous emphysema; CT is more sensitive for the evaluation of subcutaneous emphysema. MRI is more sensitive for the evaluation of marrow edema and osteomyelitis. Hand X-Ray 11/04/18 10:50 IMPRESSION: Diffuse soft tissue swelling about the right thumb. There is a radiodense metallic fragment such as a needle or wire present in the pad of the right thumb. No evidence of subcutaneous emphysema; CT is more sensitive for the evaluation of subcutaneous emphysema. MRI is more sensitive for the evaluation of marrow edema and osteomyelitis. Upper Extremity CT 11/05/18 00:00 IMPRESSION: 1. LINEAR METALLIC FOREIGN OBJECT IN THE SOFT TISSUES OF THE PAD OF THE DISTAL THUMB. 2. SKIN DEFECT IN THE PALM WITH EXTENSIVE GAS EXTENDING INTO THE PALMAR SOFT TISSUES SUSPICIOUS FOR INFECTION. NO FLUID COLLECTION OR DRAINABLE ABSCESS. 3. NO SIGNIFICANT BONY FINDINGS. Assessment & Plan - Diagnosis (1) Infection of right hand Is this a current diagnosis for this admission?: Yes Plan: Postop day #3 status post irrigation debridement mid palmar abscess 1. Cultures demonstrate MSSA, group B strep and fungus. Patient will continue IV antibiotics and antifungals as per ID recommendation. 2. Daily dressing changes 3. Anticipate patient will require further IV antibiotics until clinical i mprovement is seen. Continues to have persistent leukocytosis there is the possibility she may require repeat irrigation and debridement given the severity of her infection.
[2018-11-11] MEDS ORDERED: AMOXICILLIN TR/POT CLAVULANATE 500-125 MG TAB PO SCH (22:00)
[2018-11-11] MEDS ORDERED: CEFAZOLIN 2 GM/D5W RTU 2 GM/50 ML RTUPB IV SCH (22:00)
[2018-11-11] MEDS: CEFAZOLIN SODIUM 2 GM in DEXTROSE 5%-WATER 100 ML IV SCH (22:02)
[2018-11-11] MEDS: GABAPENTIN 100 MG CAPSULE PO SCH (22:02)
[2018-11-12] MEDS: CEFAZOLIN SODIUM 2 GM in DEXTROSE 5%-WATER 100 ML IV SCH ×3 (05:13→21:19)
[2018-11-12] MEDS: INSULIN GLARGINE,HUM.REC.ANLOG 1,000 UNIT/10 ML UNIT SUBCUT SCH (05:13)
[2018-11-12] MEDS: GABAPENTIN 100 MG CAPSULE PO SCH ×3 (05:14→21:19)
[2018-11-12 06:44] LABS: HEMATOCRIT 28.1 % (36.0-47.0); HEMOGLOBIN 9.1 g/dL (12.0-15.5); MEAN CORPUSCULAR HEMOGLOBIN 28.2 pg (27.0-33.4); MEAN CORPUSCULAR HGB CONC 32.5 g/dL (32.0-36.0); MEAN CORPUSCULAR VOLUME 87 fl (80-97); PLATELET COUNT 466 10^3/uL (150-450); RED BLOOD COUNT 3.25 10^6/uL (3.72-5.28); RED CELL DISTRIBUTION WIDTH 14.1 % (11.5-14.0); WHITE BLOOD COUNT 14.7 10^3/uL (4.0-10.5)
[2018-11-12 07:11] LABS: ANION GAP 9 (5-19); BLOOD UREA NITROGEN 9 mg/dL (7-20); CALCIUM 8.2 mg/dL (8.4-10.2); CARBON DIOXIDE 23 mmol/L (22-30); CHLORIDE 101 mmol/L (98-107); GLUCOSE 221 mg/dL (75-110); POTASSIUM 3.7 mmol/L (3.6-5.0); SODIUM 132.7 mmol/L (137-145)
--- NOTE | 2018-11-12 08:04 | PDOC PROGRESS REPORT ---
Subjective Progress Note for:: 11/12/18 Reason For Visit: SEPSIS,RIGHT HAND WOUND INFECTION,HYPONATREMIA 62-year-old white female status post I&D of her right palmar abscess. Patient complaining of pain but notes that flexion extension of the digits is improving. Physical Exam Vital Signs: Temp Pulse Resp BP Pulse Ox 36.6 C 81 14 139/74 H 96 11/12/18 04:11 11/12/18 07:00 11/12/18 04:11 11/12/18 04:11 11/12/18 04:11 Intake & Output 11/11/18 11/12/18 11/13/18 06:59 06:59 06:59 Intake Total 1122 2071 Output Total 1870 900 Balance -748 1171 Weight 58.4 kg 60.8 kg General appearance: PRESENT: no acute distress, mild distress Head exam: PRESENT: normocephalic Respiratory exam: PRESENT: unlabored Cardiovascular exam: PRESENT: RRR Vascular exam: PRESENT: normal capillary refill GI/Abdominal exam: PRESENT: soft Rectal exam: PRESENT: deferred Extremities exam: PRESENT: other - Right upper extremity dressing clean dry and intact with brisk capillary refill to each of the digits. Results Laboratory Results: 11/12/18 06:23 11/12/18 06:23 11/12/18 11/12/18 06:23 06:23 WBC 14.7 H RBC 3.25 L Hgb 9.1 L Hct 28.1 L MCV 87 MCH 28.2 MCHC 32.5 RDW 14.1 H Plt Count 466 H Sodium 132.7 L Potassium 3.7 Chloride 101 Carbon Dioxide 23 Anion Gap 9 BUN 9 Creatinine 1.04 Est GFR ( Amer) > 60 Est GFR (Non-Af Amer) 54 L Glucose 221 H Calcium 8.2 L 11/08/18 12:30 Hand - Palm Of Hand Gram Stain - Final 11/08/18 12:30 Hand - Palm Of Hand Wound Culture - Final Staphylococcus Aureus Group B Beta Streptococcus Yeast, Not Sarahi Albicans 11/04/18 11/07/18 12:32 13:47 Creatine Kinase 70 Troponin I 0.014 Impressions: Forearm X-Ray 11/04/18 10:50 IMPRESSION: Diffuse soft tissue swelling about the right thumb. There is a radiodense metallic fragment such as a needle or wire present in the pad of the right thumb. No evidence of subcutaneous emphysema; CT is more sensitive for the evaluation of subcutaneous emphysema. MRI is more sensitive for the evaluation of marrow edema and osteomyelitis. Hand X-Ray 11/04/18 10:50 IMPRESSION: Diffuse soft tissue swelling about the right thumb. There is a radiodense metallic fragment such as a needle or wire present in the pad of the right thumb. No evidence of subcutaneous emphysema; CT is more sensitive for the evaluation of subcutaneous emphysema. MRI is more sensitive for the evaluation of marrow edema and osteomyelitis. Upper Extremity CT 11/05/18 00:00 IMPRESSION: 1. LINEAR METALLIC FOREIGN OBJECT IN THE SOFT TISSUES OF THE PAD OF THE DISTAL THUMB. 2. SKIN DEFECT IN THE PALM WITH EXTENSIVE GAS EXTENDING INTO THE PALMAR SOFT TISSUES SUSPICIOUS FOR INFECTION. NO FLUID COLLECTION OR DRAINABLE ABSCESS. 3. NO SIGNIFICANT BONY FINDINGS. Status: Imported from PACS Assessment & Plan - Diagnosis (1) Infection of right hand Is this a current diagnosis for this admission?: Yes Plan: Cultures positive for staph, strep, and yeast. Patient currently on Augmentin, Ancef, Pipracil 1, and vancomycin. We will leave antibiotic selection to the hospitalist service. - Time Time Spent with patient: 15-24 minutes Anticipated discharge: Home with Homehealth Within: Other
[2018-11-12] MEDS: DOCUSATE SODIUM 100 MG CAPSULE PO SCH (09:00)
[2018-11-12] MEDS: NYSTATIN TOPICAL POWDER 15 GM TP SCH ×2 (09:00→16:59)
[2018-11-12] MEDS: FAMOTIDINE 20 MG TABLET PO SCH ×2 (09:00→21:19)
[2018-11-12] MEDS ORDERED: MICAFUNGIN SODIUM INJ/PF 100 MG VIAL IV SCH (10:00)
[2018-11-12] MEDS: INSULIN LISPRO 100 UNIT/ML 3 ML VIAL SUBCUT PRN ×4 (10:03→21:19)
[2018-11-12] MEDS: OXYCODONE HCL IR 5 MG TABLET PO PRN ×2 (10:06→13:39)
--- NOTE | 2018-11-12 11:44 | PDOC PROGRESS REPORT ---
Subjective Progress Note for:: 11/12/18 Subjective:: 11/12/[id number]-emfq-old female admitted for a right palmar abscess status post I&D was done. Patient is afebrile temperature is 97.9. No acute events in the last 24 hours. X-ray shows radio dense metallic fragments such as a needle or wire present in the right palm of the thumb. This x-ray was done on 11/04/2018. Requested the nurse to call the orthopedist taxation agent for further management. Hopefully this foreign object was removed by now. Reason For Visit: SEPSIS,RIGHT HAND WOUND INFECTION,HYPONATREMIA Physical Exam Vital Signs: Temp Pulse Resp BP Pulse Ox 97.9 F 81 14 139/74 H 96 11/12/18 04:11 11/12/18 07:00 11/12/18 04:11 11/12/18 04:11 11/12/18 04:11 Intake & Output 11/11/18 11/12/18 11/13/18 06:59 06:59 06:59 Intake Total 1122 2071 Output Total 1870 900 Balance -748 1171 Weight 58.4 kg 60.8 kg General appearance: PRESENT: no acute distress Head exam: PRESENT: atraumatic Eye exam: PRESENT: PERRLA Mouth exam: PRESENT: moist Neck exam: ABSENT: carotid bruit, JVD, lymphadenopathy, thyromegaly Respiratory exam: PRESENT: clear to auscultation marce. ABSENT: rales, rhonchi, wheezes Cardiovascular exam: PRESENT: RRR. ABSENT: diastolic murmur, rubs, systolic murmur GI/Abdominal exam: PRESENT: normal bowel sounds, soft. ABSENT: distended, guarding, mass, organolmegaly, rebound, tenderness Extremities exam: PRESENT: full ROM. ABSENT: calf tenderness, clubbing, pedal edema Neurological exam: PRESENT: alert, awake, oriented to person, oriented to place, oriented to time, oriented to situation, CN II-XII grossly intact. ABSENT: motor sensory deficit Psychiatric exam: PRESENT: appropriate affect, normal mood. ABSENT: homicidal ideation, suicidal ideation Results Laboratory Results: 11/12/18 06:23 11/12/18 06:23 11/12/18 11/12/18 06:23 06:23 WBC 14.7 H RBC 3.25 L Hgb 9.1 L Hct 28.1 L MCV 87 MCH 28.2 MCHC 32.5 RDW 14.1 H Plt Count 466 H Sodium 132.7 L Potassium 3.7 Chloride 101 Carbon Dioxide 23 Anion Gap 9 BUN 9 Creatinine 1.04 Est GFR ( Amer) > 60 Est GFR (Non-Af Amer) 54 L Glucose 221 H Calcium 8.2 L 11/08/18 12:30 Hand - Palm Of Hand Gram Stain - Final 11/08/18 12:30 Hand - Palm Of Hand Wound Culture - Final Staphylococcus Aureus Group B Beta Streptococcus Yeast, Not Sarahi Albicans 11/04/18 11/07/18 12:32 13:47 Creatine Kinase 70 Troponin I 0.014 Impressions: Forearm X-Ray 11/04/18 10:50 IMPRESSION: Diffuse soft tissue swelling about the right thumb. There is a radiodense metallic fragment such as a needle or wire present in the pad of the right thumb. No evidence of subcutaneous emphysema; CT is more sensitive for the evaluation of subcutaneous emphysema. MRI is more sensitive for the evaluation of marrow edema and osteomyelitis. Hand X-Ray 11/04/18 10:50 IMPRESSION: Diffuse soft tissue swelling about the right thumb. There is a radiodense metallic fragment such as a needle or wire present in the pad of the right thumb. No evidence of subcutaneous emphysema; CT is more sensitive for the evaluation of subcutaneous emphysema. MRI is more sensitive for the evalu ation of marrow edema and osteomyelitis. Upper Extremity CT 11/05/18 00:00 IMPRESSION: 1. LINEAR METALLIC FOREIGN OBJECT IN THE SOFT TISSUES OF THE PAD OF THE DISTAL THUMB. 2. SKIN DEFECT IN THE PALM WITH EXTENSIVE GAS EXTENDING INTO THE PALMAR SOFT TISSUES SUSPICIOUS FOR INFECTION. NO FLUID COLLECTION OR DRAINABLE ABSCESS. 3. NO SIGNIFICANT BONY FINDINGS. Assessment & Plan - Diagnosis (1) Infection of right hand Is this a current diagnosis for this admission?: Yes Plan: 11/12/2018-patient is admitted with right hand abscess status post incision and d rainage was done. Patient is on Ancef. Cultures are showing staph aureus/group B streptococcus. T-max is 97.9. Plan is to continue the present management. WBC is 14,700. Patient is also on micafungin 150 mg IV daily. (2) Diabetes Is this a current diagnosis for this admission?: Yes Plan: 11/08/2018-patient has history of diabetes mellitus presently she is on insulin sliding scale coverage. Also on Lantus 5 units twice a day. Hemoglobin A1c is 12.5. Sugar today is 229. Patient is on Lantus 20 units at bedtime plan is to put her on Lantus 20 units twice a day while she was in the hospital. - Time Time Spent with patient: 15-24 minutes Medications reviewed and adjusted accordingly: Yes Anticipated discharge: Home
--- NOTE | 2018-11-12 16:35 | RADIOLOGY REPORT (SQ) ---
EXAM DESCRIPTION: FINGER RIGHT COMPLETED DATE/TIME: 11/12/2018 3:23 pm REASON FOR STUDY: rt thumb foreign body COMPARISON: None. NUMBER OF VIEWS: Three views. TECHNIQUE: AP, lateral, and oblique images acquired of the right thumb. LIMITATIONS: None. FINDINGS: MINERALIZATION: Normal. BONES: No acute fracture or dislocation. No worrisome bone lesions. SOFT TISSUES: Again seen is a linear metallic foreign object in the soft tissues of the distal thumb. OTHER: No other significant finding. IMPRESSION: LINEAR METALLIC FOREIGN OBJECT IN THE SOFT TISSUES OF THE DISTAL THUMB. NO CHANGE PER COMMENT: SITE OF TRAUMA/COMPLAINT MARKED/STAMP COMPLETED: YES. TECHNICAL DOCUMENTATION: JOB ID: [id number] [employer]- All Rights Reserved Reading location - IP/workstation name: [email or web address]
[2018-11-12] MEDS: MICAFUNGIN SODIUM 150 MG in NORMAL SALINE 100 ML IV SCH (16:59)
[2018-11-12] MEDS: HYDROMORPHONE HCL INJ/PF 2 MG/ML AMPULE IV PRN (21:18)
[2018-11-12] MEDS ORDERED: INSULIN GLARGINE,HUM.REC.ANLOG 300 UNIT/3 ML INSULN.PEN SUBCUT SCH (22:00)
[2018-11-13] MEDS: GABAPENTIN 100 MG CAPSULE PO SCH ×2 (05:35→13:20)
[2018-11-13] MEDS: CEFAZOLIN SODIUM 2 GM in DEXTROSE 5%-WATER 100 ML IV SCH ×2 (05:35→13:21)
[2018-11-13] MEDS: OXYCODONE HCL IR 5 MG TABLET PO PRN ×2 (05:45→17:32)
[2018-11-13] MEDS: INSULIN LISPRO 100 UNIT/ML 3 ML VIAL SUBCUT PRN ×3 (08:02→17:23)
[2018-11-13] MEDS: ACETAMINOPHEN 325 MG TABLET PO PRN (08:46)
[2018-11-13] MEDS: DOCUSATE SODIUM 100 MG CAPSULE PO SCH (09:44)
[2018-11-13] MEDS: ASPIRIN 81 MG TABLET, ENT COATED PO SCH (09:50)
[2018-11-13] MEDS: FAMOTIDINE 20 MG TABLET PO SCH (09:50)
[2018-11-13] MEDS: NYSTATIN TOPICAL POWDER 15 GM TP SCH ×2 (09:51→17:23)
[2018-11-13] MEDS ORDERED: INSULIN GLARGINE,HUM.REC.ANLOG 1,000 UNIT/10 ML UNIT SUBCUT SCH ×2 (10:00)
--- NOTE | 2018-11-13 15:14 | PDOC PROGRESS REPORT ---
Subjective Progress Note for:: 11/13/18 Subjective:: Patient resting comfortably in bed no issues overnight. Reason For Visit: SEPSIS,RIGHT HAND WOUND INFECTION,HYPONATREMIA Physical Exam Vital Signs: Temp Pulse Resp BP Pulse Ox 36.7 C 76 16 115/51 L 99 11/13/18 12:00 11/13/18 14:00 11/13/18 12:00 11/13/18 12:00 11/13/18 12:00 Intake & Output 11/12/18 11/13/18 11/14/18 06:59 06:59 06:59 Intake Total 2071 1055 200 Output Total 900 2870 Balance 1171 -1815 200 Weight 60.8 kg 60.8 kg General appearance: PRESENT: no acute distress Front of Hands Image: 1 - Dressing is dry clean and intact. No erythema in the fingers. Swelling has improved. No erythema on the forearm. Neurovascular Results Laboratory Results: 11/12/18 06:23 11/12/18 06:23 11/04/18 11/07/18 12:32 13:47 Creatine Kinase 70 Troponin I 0.014 Impressions: Forearm X-Ray 11/04/18 10:50 IMPRESSION: Diffuse soft tissue swelling about the right thumb. There is a radiodense metallic fragment such as a needle or wire present in the pad of the right thumb. No evidence of subcutaneous emphysema; CT is more sensitive for the evaluation of subcutaneous emphysema. MRI is more sensitive for the evaluation of marrow edema and osteomyelitis. Hand X-Ray 11/04/18 10:50 IMPRESSION: Diffuse soft tissue swelling about the right thumb. There is a radiodense metallic fragment such as a needle or wire present in the pad of the right thumb. No evidence of subcutaneous emphysema; CT is more sensitive for the evaluation of subcutaneous emphysema. MRI is more sensitive for the evaluation of marrow edema and osteomyelitis. Upper Extremity CT 11/05/18 00:00 IMPRESSION: 1. LINEAR METALLIC FOREIGN OBJECT IN THE SOFT TISSUES OF THE PAD OF THE DISTAL THUMB. 2. SKIN DEFECT IN THE PALM WITH EXTENSIVE GAS EXTENDING INTO THE PALMAR SOFT T ISSUES SUSPICIOUS FOR INFECTION. NO FLUID COLLECTION OR DRAINABLE ABSCESS. 3. NO SIGNIFICANT BONY FINDINGS. Finger X-Ray 11/12/18 00:00 IMPRESSION: LINEAR METALLIC FOREIGN OBJECT IN THE SOFT TISSUES OF THE DISTAL THUMB. NO CHANGE PER Assessment & Plan - Diagnosis (1) Infection of right hand Is this a current diagnosis for this admission?: Yes - Plan Summary Plan Summary: 62-year-old female status post I&D of the right palmar hand. Continue current IV antibiotic regimen and dressing changes.
--- NOTE | 2018-11-13 15:38 | PDOC PROGRESS REPORT ---
Subjective Progress Note for:: 11/13/18 Subjective:: 11/12/[id number]-rcyz-old female admitted for a right palmar abscess status post I&D was done. Patient is afebrile temperature is 97.9. No acute events in the last 24 hours. X-ray shows radio dense metallic fragments such as a needle or wire present in the right palm of the thumb. This x-ray was done on 11/04/2018. Requested the nurse to call the orthopedist button maker and installer for further management. Hopefully this foreign object was removed by now. 11/13/2018-no acute events in the last 24 hours. Patient is afebrile. Comfortably in the bed sleeping. Woke up on calling and says she is doing well and denies any problems. Reason For Visit: SEPSIS,RIGHT HAND WOUND INFECTION,HYPONATREMIA Physical Exam Vital Signs: Temp Pulse Resp BP Pulse Ox 98.0 F 76 16 115/51 L 99 11/13/18 12:00 11/13/18 14:00 11/13/18 12:00 11/13/18 12:00 11/13/18 12:00 Intake & Output 11/12/18 11/13/18 11/14/18 06:59 06:59 06:59 Intake Total 2071 1055 200 Output Total 900 2870 Balance 1171 -1815 200 Weight 60.8 kg 60.8 kg General appearance: PRESENT: no acute distress Head exam: PRESENT: atraumatic Eye exam: PRESENT: PERRLA Mouth exam: PRESENT: moist Neck exam: ABSENT: carotid bruit, JVD, lymphadenopathy, thyromegaly Respiratory exam: PRESENT: clear to auscultation marce. ABSENT: rales, rhonchi, wheezes Cardiovascular exam: PRESENT: RRR. ABSENT: diastolic murmur, rubs, systolic murmur GI/Abdominal exam: PRESENT: normal bowel sounds, soft. ABSENT: distended, guarding, mass, organolmegaly, rebound, tenderness Extremities exam: PRESENT: full ROM. ABSENT: calf tenderness, clubbing, pedal edema Neurological exam: PRESENT: alert, awake, oriented to person, oriented to place, oriented to time, oriented to situation, CN II-XII grossly intact. ABSENT: motor sensory deficit Psychiatric exam: PRESENT: appropriate affect, normal mood. ABSENT: homicidal ideation, suicidal ideation Results Laboratory Results: 11/12/18 06:23 11/12/18 06:23 11/04/18 11/07/18 12:32 13:47 Creatine Kinase 70 Troponin I 0.014 Impressions: Forearm X-Ray 11/04/18 10:50 IMPRESSION: Diffuse soft tissue swelling about the right thumb. There is a radiodense metallic fragment such as a needle or wire present in the pad of the right thumb. No evidence of subcutaneous emphysema; CT is more sensitive for the evaluation of subcutaneous emphysema. MRI is more sensitive for the evaluation of marrow edema and osteomyelitis. Hand X-Ray 11/04/18 10:50 IMPRESSION: Diffuse soft tissue swelling about the right thumb. There is a radiodense metallic fragment such as a needle or wire present in the pad of the right thumb. No evidence of subcutaneous emphysema; CT is more sensitive for the evaluation of subcutaneous emphysema. MRI is more sensitive for the evaluation of marrow edema and osteomyelitis. Upper Extremity CT 11/05/18 00:00 IMPRESSION: 1. LINEAR METALLIC FOREIGN OBJECT IN THE SOFT TISSUES OF THE PAD OF THE DISTAL THUMB. 2. SKIN DEFECT IN THE PALM WITH EXTENSIVE GAS EXTENDING INTO THE PALMAR SOFT TISSUES SUSPICIOUS FOR INFECTION. NO FLUID COLLECTION OR DRAINABLE ABSCESS. 3. NO SIGNIFICANT BONY FINDINGS. Finger X-Ray 11/12/18 00:00 IMPRESSION: LINEAR METALLIC FOREIGN OBJECT IN THE SOFT TISSUES OF THE DISTAL THUMB. NO CHANGE PER Assessment & Plan - Diagnosis (1) Infection of right hand Is this a current diagnosis for this admission?: Yes Plan: 11/12/2018-patient is admitted with right hand abscess status post incision and drainage was done. Patient is on Ancef. Cultures are showing staph aureus/group B streptococcus. T-max is 97.9. Plan is to continue the present management. WBC is 14,700. Patient is also on micafungin 150 mg IV daily. 11/13/2018 patient was admitted with right palmar abscessstatus post incision and drainage was done. Patient is doing well. Febrile for the last 3-4 days. Managed to continue the present antibiotics and repeat the lab work tomorrow. I t is presently on cefazolin and micafungin. (2) Diabetes Is this a current diagnosis for this admission?: Yes Plan: 11/12/2018-patient has history of diabetes mellitus presently she is on insulin sliding scale coverage. Also on Lantus 5 units twice a day. Hemoglobin A1c is 12.5. Sugar today is 229. Patient is on Lantus 20 units at bedtime plan is to put her on Lantus 20 units twice a day while she was in the hospital. 2018 patient has history of diabetes mellitus on insulin sliding scale coverage she is started on Lantus 20 units twice a day latest blood sugar is 306 and hemoglobin A1c is 12.5. Plan is to increase the Lantus to 30 units twice a day and continue with insulin sliding scale coverage before meals and at bedtime... - Time Time Spent with patient: Less than 15 minutes Medications reviewed and adjusted accordingly: Yes Anticipated discharge: Home
[2018-11-13] MEDS: MICAFUNGIN SODIUM 150 MG in NORMAL SALINE 100 ML IV SCH (17:23)
[2018-11-14] MEDS: CEFAZOLIN SODIUM 2 GM in DEXTROSE 5%-WATER 100 ML IV SCH ×4 (00:09→22:15)
[2018-11-14] MEDS: HYDROMORPHONE HCL INJ/PF 2 MG/ML AMPULE IV PRN (00:09)
[2018-11-14] MEDS: GABAPENTIN 100 MG CAPSULE PO SCH ×4 (00:10→22:15)
[2018-11-14] MEDS: INSULIN GLARGINE,HUM.REC.ANLOG 1,000 UNIT/10 ML UNIT SUBCUT SCH ×3 (00:10→22:16)
[2018-11-14] MEDS: FAMOTIDINE 20 MG TABLET PO SCH ×3 (00:10→22:15)
[2018-11-14 05:00] LABS: ABSOLUTE BASOPHILS # (AUTO) 0.1 10^3/uL (0.0-0.2); ABSOLUTE EOSINOPHILS # (AUTO) 0.1 10^3/uL (0.0-0.6); ABSOLUTE LYMPHOCYTES (AUTO) 1.7 10^3/uL (0.5-4.7); ABSOLUTE MONOCYTES (AUTO) 0.7 10^3/uL (0.1-1.4); ABSOLUTE NEUT (AUTO) 11.4 10^3/uL (1.7-8.2); BASOPHILS % (AUTO) 0.4 % (0-2); HEMATOCRIT 28.6 % (36.0-47.0); HEMOGLOBIN 9.4 g/dL (12.0-15.5); MEAN CORPUSCULAR HEMOGLOBIN 28.3 pg (27.0-33.4); MEAN CORPUSCULAR HGB CONC 32.8 g/dL (32.0-36.0); MEAN CORPUSCULAR VOLUME 86 fl (80-97); MONOCYTES % (AUTO) 4.9 % (3-13); PLATELET COUNT 520 10^3/uL (150-450); RED BLOOD COUNT 3.32 10^6/uL (3.72-5.28); RED CELL DISTRIBUTION WIDTH 14.2 % (11.5-14.0); SEGMENTED NEUTROPHILS % (AUTO) 81.7 % (42-78); TOTAL CELLS COUNTED % (AUTO) 100 %; WHITE BLOOD COUNT 13.9 10^3/uL (4.0-10.5)
[2018-11-14] MEDS: OXYCODONE HCL IR 5 MG TABLET PO PRN ×3 (05:10→15:33)
[2018-11-14 05:12] LABS: ALANINE AMINOTRANSFERASE 7 U/L (9-52); ALBUMIN 2.7 g/dL (3.5-5.0); ALKALINE PHOSPHATASE 120 U/L (38-126); ANION GAP 9 (5-19); ASPARTATE AMINO TRANSFERASE 9 U/L (14-36); BILIRUBIN,DIRECT 0.1 mg/dL (0.0-0.4); BILIRUBIN,TOTAL 0.1 mg/dL (0.2-1.3); BLOOD UREA NITROGEN 12 mg/dL (7-20); CALCIUM 8.5 mg/dL (8.4-10.2); CARBON DIOXIDE 26 mmol/L (22-30); CHLORIDE 100 mmol/L (98-107); GLUCOSE 191 mg/dL (75-110); SODIUM 135.1 mmol/L (137-145); TOTAL PROTEIN 5.7 g/dL (6.3-8.2)
[2018-11-14] MEDS: ACETAMINOPHEN 325 MG TABLET PO PRN ×2 (08:33→17:32)
[2018-11-14] MEDS: ASPIRIN 81 MG TABLET, ENT COATED PO SCH (09:34)
[2018-11-14] MEDS: DOCUSATE SODIUM 100 MG CAPSULE PO SCH (09:34)
[2018-11-14] MEDS: NYSTATIN TOPICAL POWDER 15 GM TP SCH ×2 (09:36→17:37)
--- NOTE | 2018-11-14 12:20 | PDOC PROGRESS REPORT ---
Subjective Progress Note for:: 11/14/18 Subjective:: 11/12/20186900-49-ossp-old female admitted for a right palmar abscess status post I&D was done. Patient is afebrile temperature is 97.9. No acute events in the last 24 hours. X-ray shows radio dense metallic fragments such as a needle or wire present in the right palm of the thumb. This x-ray was done on 11/04/2018. Requested the nurse to call the orthopedist manager of loss prevention operations for further management. Hopefully this foreign object was removed by now. 11/13/2018-no acute events in the last 24 hours. Patient is afebrile. Comfortably in the bed sleeping. Woke up on calling and says she is doing well and denies any problems. 11/14/2018 no acute events in the last 24 hours. Afebrile. Portably sleeping in the bed. We discussed the foreign object in the right palm and asked for the surgical team it was there for a long time nothing to worry about. Reason For Visit: SEPSIS,RIGHT HAND WOUND INFECTION,HYPONATREMIA Physical Exam Vital Signs: Temp Pulse Resp BP Pulse Ox 98.3 F 71 17 121/64 99 11/14/18 08:00 11/14/18 08:00 11/14/18 08:00 11/14/18 08:00 11/14/18 08:00 Intake & Output 11/13/18 11/14/18 11/15/18 06:59 06:59 06:59 Intake Total 1055 3052 Output Total 2870 1200 Balance -1815 1852 Weight 60.8 kg 61.4 kg General appearance: PRESENT: no acute distress Head exam: PRESENT: atraumatic Eye exam: PRESENT: PERRLA Mouth exam: PRESENT: moist, tongue midline Neck exam: ABSENT: carotid bruit, JVD, lymphadenopathy, thyromegaly Respiratory exam: PRESENT: clear to auscultation marce. ABSENT: rales, rhonchi, wheezes Cardiovascular exam: PRESENT: RRR. ABSENT: diastolic murmur, rubs, systolic murmur GI/Abdominal exam: PRESENT: normal bowel sounds, soft. ABSENT: distended, guarding, mass, organolmegaly, rebound, tenderness Extremities exam: PRESENT: full ROM. ABSENT: calf tenderness, clubbing, pedal edema Neurological exam: PRESENT: alert, awake, oriented to person, oriented to place, oriented to time, oriented to situation, CN II-XII grossly intact. ABSENT: motor sensory deficit Psychiatric exam: PRESENT: appropriate affect, normal mood. ABSENT: homicidal ideation, suicidal ideation Results Laboratory Results: 11/14/18 04:16 11/14/18 04:16 11/14/18 11/14/18 04:16 04:16 WBC 13.9 H RBC 3.32 L Hgb 9.4 L Hct 28.6 L MCV 86 MCH 28.3 MCHC 32.8 RDW 14.2 H Plt Count 520 H Seg Neutrophils % 81.7 H Lymphocytes % 12.0 L Monocytes % 4.9 Eosinophils % 1.0 Basophils % 0.4 Absolute Neutrophils 11.4 H Absolute Lymphocytes 1.7 Absolute Monocytes 0.7 Absolute Eosinophils 0.1 Absolute Basophils 0.1 Sodium 135.1 L Potassium 4.0 Chloride 100 Carbon Dioxide 26 Anion Gap 9 BUN 12 Creatinine 0.96 Est GFR ( Amer) > 60 Est GFR (Non-Af Amer) 59 L Glucose 191 H Calcium 8.5 Magnesium 1.7 Total Bilirubin 0.1 L AST 9 L ALT 7 L Alkaline Phosphatase 120 Total Protein 5.7 L Albumin 2.7 L 11/04/18 11/07/18 12:32 13:47 Creatine Kinase 70 Troponin I 0.014 Impressions: Forearm X-Ray 11/04/18 10:50 IMPRESSION: Diffuse soft tissue swelling about the right thumb. There is a radiodense metallic fragment such as a needle or wire present in the pad of the right thumb. No evidence of subcutaneous emphysema; CT is more sensitive for the evaluation of subcutaneous emphysema. MRI is more sensitive for the evaluation of marrow edema and osteomyelitis. Hand X-Ray 11/04/18 10:50 IMPRESSION: Diffuse soft tissue swelling about the right thumb. There is a r adiodense metallic fragment such as a needle or wire present in the pad of the right thumb. No evidence of subcutaneous emphysema; CT is more sensitive for the evaluation of subcutaneous emphysema. MRI is more sensitive for the evaluation of marrow edema and osteomyelitis. Upper Extremity CT 11/05/18 00:00 IMPRESSION: 1. LINEAR METALLIC FOREIGN OBJECT IN THE SOFT TISSUES OF THE PAD OF THE DISTAL THUMB. 2. SKIN DEFECT IN THE PALM WITH EXTENSIVE GAS EXTENDING INTO THE PALMAR SOFT TISSUES SUSPICIOUS FOR INFECTION. NO FLUID COLLECTION OR DRAINABLE ABSCESS. 3. NO SIGNIFICANT BONY FINDINGS. Finger X-Ray 11/12/18 00:00 IMPRESSION: LINEAR METALLIC FOREIGN OBJECT IN THE SOFT TISSUES OF THE DISTAL THUMB. NO CHANGE PER Assessment & Plan - Diagnosis (1) Infection of right hand Is this a current diagnosis for this admission?: Yes Plan: 11/12/2018-patient is admitted with right hand abscess status post incision and drainage was done. Patient is on Ancef. Cultures are showing staph aureus/group B streptococcus. T-max is 97.9. Plan is to continue the present management. WBC is 14,700. Patient is also on micafungin 150 mg IV daily. 11/13/2018 patient was admitted with right palmar abscessstatus post incision and drainage was done. Patient is doing well. Febrile for the last 3-4 days. Managed to continue the present antibiotics and repeat the lab work tomorrow. It is presently on cefazolin and micafungin. 11/14/2018-patient came in with right palmar abscess status post incision and drainage was done. Patient is on cefazolin and micafungin. Febrile. Plan is to continue the present management. (2) Diabetes Is this a current diagnosis for this admission?: Yes Plan: 11/12/2018-patient has history of diabetes mellitus presently she is on insulin sliding scale coverage. Also on Lantus 5 units twice a day. Hemoglobin A1c is 12.5. Sugar today is 229. Patient is on Lantus 20 units at bedtime plan is to put her on Lantus 20 units twice a day while she was in the hospital. 2018 patient has history of diabetes mellitus on insulin sliding scale coverage she is started on Lantus 20 units twice a day latest blood sugar is 306 and hemoglobin A1c is 12.5. Plan is to increase the Lantus to 30 units twice a day and continue with insulin sliding scale coverage before meals and at bedtime... 11/14/2018-patient has history of diabetes mellitus hemoglobin A1c is 12.5. She is on Lantus 20 units twice a day blood sugar this morning is 271. Plan is to increase the Lantus to 25 units twice a day and continue the sliding scale bef ore meals and at bedtime. - Time Time Spent with patient: Less than 15 minutes Medications reviewed and adjusted accordingly: Yes
[2018-11-14] MEDS: INSULIN LISPRO 100 UNIT/ML 3 ML VIAL SUBCUT PRN (13:45)
--- NOTE | 2018-11-14 13:57 | PDOC PROGRESS REPORT ---
Subjective Subjective:: Patient presented to the hospital on 11/04/18 with redness swelling and pain in her right hand. Patient continued to have persistent pain, swelling and increasing white count. Patient denies IV drug abuse but does have history of severe diabetes. Continues to complain of right hand pain. Her symptoms have improved. Continues daily dressing changes and chlorhexidine soaks. Reason For Visit: SEPSIS,RIGHT HAND WOUND INFECTION,HYPONATREMIA Physical Exam Vital Signs: Temp Pulse Resp BP Pulse Ox 97.8 F 80 16 101/45 L 97 11/14/18 12:00 11/14/18 12:00 11/14/18 12:00 11/14/18 12:00 11/14/18 12:00 Intake & Output 11/13/18 11/14/18 11/15/18 06:59 06:59 06:59 Intake Total 1055 3052 Output Total 2870 1200 Balance -1815 1852 Weight 60.8 kg 61.4 kg Musculoskeletal exam: PRESENT: other - Right hand: Digits resting in IP joint flexion. Dressing change today. There is residual serosanguineous drainage with maceration on the palm of the hand. Hypoesthesia of the distal tip relatively unchanged. No streaking erythema proximally. No expressible drainage. Results Laboratory Results: 11/14/18 04:16 11/14/18 04:16 11/14/18 11/14/18 04:16 04:16 WBC 13.9 H RBC 3.32 L Hgb 9.4 L Hct 28.6 L MCV 86 MCH 28.3 MCHC 32.8 RDW 14.2 H Plt Count 520 H Seg Neutrophils % 81.7 H Lymphocytes % 12.0 L Monocytes % 4.9 Eosinophils % 1.0 Basophils % 0.4 Absolute Neutrophils 11.4 H Absolute Lymphocytes 1.7 Absolute Monocytes 0.7 Absolute Eosinophils 0.1 Absolute Basophils 0.1 Sodium 135.1 L Potassium 4.0 Chloride 100 Carbon Dioxide 26 Anion Gap 9 BUN 12 Creatinine 0.96 Est GFR ( Amer) > 60 Est GFR (Non-Af Amer) 59 L Glucose 191 H Calcium 8.5 Magnesium 1.7 Total Bilirubin 0.1 L AST 9 L ALT 7 L Alkaline Phosphatase 120 Total Protein 5.7 L Albumin 2.7 L 11/04/18 11/07/18 12:32 13:47 Creatine Kinase 70 Troponin I 0.014 Impressions: Forearm X-Ray 11/04/18 10:50 IMPRESSION: Diffuse soft tissue swelling about the right thumb. There is a radiodense metallic fragment such as a needle or wire present in the pad of the right thumb. No evidence of subcutaneous emphysema; CT is more sensitive for the evaluation of subcutaneous emphysema. MRI is more sensitive for the evaluation of marrow edema and osteomyelitis. Hand X-Ray 11/04/18 10:50 IMPRESSION: Diffuse soft tissue swelling about the right thumb. There is a radiodense metallic fragment such as a needle or wire present in the pad of the right thumb. No evidence of subcutaneous emphysema; CT is more sensitive for the evaluation of subcutaneous emphysema. MRI is more sensitive for the evaluation of marrow edema and osteomyelitis. Upper Extremity CT 11/05/18 00:00 IMPRESSION: 1. LINEAR METALLIC FOREIGN OBJECT IN THE SOFT TISSUES OF THE PAD OF THE DISTAL THUMB. 2. SKIN DEFECT IN THE PALM WITH EXTENSIVE GAS EXTENDING INTO THE PALMAR SOFT TISSUES SUSPICIOUS FOR INFECTION. NO FLUID COLLECTION OR DRAINABLE ABSCESS. 3. NO SIGNIFICANT BONY FINDINGS. Finger X-Ray 11/12/18 00:00 IMPRESSION: LINEAR METALLIC FOREIGN OBJECT IN THE SOFT TISSUES OF THE DISTAL THUMB. NO CHANGE PER Assessment & Plan - Diagnosis (1) Infection of right hand Is this a current diagnosis for this admission?: Yes Plan: Postop day #6 status post irrigation debridement mid palmar abscess 1. Cultures demonstrate MSSA, group B strep and fungus. Patient will continue IV antibiotics and antifungals as per ID recommendation. 2. Daily dressing changes 3. Anticipate patient will require further IV antibiotics until clinical improvement is seen. Patient continues to show clinical improvement thus will continue IV antibiotics and monitor.
[2018-11-14] MEDS: MICAFUNGIN SODIUM 150 MG in NORMAL SALINE 100 ML IV SCH (17:32)
[2018-11-14] MEDS ORDERED: INSULIN GLARGINE,HUM.REC.ANLOG 1,000 UNIT/10 ML UNIT SUBCUT SCH (22:00)
[2018-11-15] MEDS: CEFAZOLIN SODIUM 2 GM in DEXTROSE 5%-WATER 100 ML IV SCH ×3 (05:21→21:36)
[2018-11-15] MEDS: GABAPENTIN 100 MG CAPSULE PO SCH ×3 (05:23→21:36)
[2018-11-15 06:06] LABS: ABSOLUTE BASOPHILS # (AUTO) 0.1 10^3/uL (0.0-0.2); ABSOLUTE EOSINOPHILS # (AUTO) 0.1 10^3/uL (0.0-0.6); ABSOLUTE LYMPHOCYTES (AUTO) 1.5 10^3/uL (0.5-4.7); BASOPHILS % (AUTO) 0.4 % (0-2); EOSINOPHILS % (AUTO) 0.8 % (0-6); HEMATOCRIT 28.5 % (36.0-47.0); HEMOGLOBIN 9.5 g/dL (12.0-15.5); LYMPHOCYTES % (AUTO) 9.5 % (13-45); MEAN CORPUSCULAR HEMOGLOBIN 28.6 pg (27.0-33.4); MEAN CORPUSCULAR HGB CONC 33.4 g/dL (32.0-36.0); MEAN CORPUSCULAR VOLUME 86 fl (80-97); MONOCYTES % (AUTO) 6.3 % (3-13); PLATELET COUNT 653 10^3/uL (150-450); RED BLOOD COUNT 3.33 10^6/uL (3.72-5.28); RED CELL DISTRIBUTION WIDTH 14.2 % (11.5-14.0); TOTAL CELLS COUNTED % (AUTO) 100 %; WHITE BLOOD COUNT 15.7 10^3/uL (4.0-10.5)
[2018-11-15 06:32] LABS: ALANINE AMINOTRANSFERASE 17 U/L (9-52); ALBUMIN 2.8 g/dL (3.5-5.0); ALKALINE PHOSPHATASE 122 U/L (38-126); ANION GAP 9 (5-19); ASPARTATE AMINO TRANSFERASE 8 U/L (14-36); BILIRUBIN,DIRECT 0.1 mg/dL (0.0-0.4); BILIRUBIN,TOTAL 0.1 mg/dL (0.2-1.3); BLOOD UREA NITROGEN 15 mg/dL (7-20); CALCIUM 8.8 mg/dL (8.4-10.2); CARBON DIOXIDE 27 mmol/L (22-30); CHLORIDE 102 mmol/L (98-107); GLUCOSE 52 mg/dL (75-110); POTASSIUM 3.8 mmol/L (3.6-5.0); SODIUM 137.6 mmol/L (137-145); TOTAL PROTEIN 5.8 g/dL (6.3-8.2)
--- NOTE | 2018-11-15 07:16 | PDOC PROGRESS REPORT ---
Subjective Progress Note for:: 11/15/18 Reason For Visit: SEPSIS,RIGHT HAND WOUND INFECTION,HYPONATREMIA 62-year-old white female status post I&D of a right palmar abscess now receiving dressing changes and IV antibiotics. Cultures positive for beta strep, staph, and a yeast Physical Exam Vital Signs: Temp Pulse Resp BP Pulse Ox 36.7 C 73 14 104/53 L 99 11/15/18 03:55 11/15/18 03:55 11/15/18 03:55 11/15/18 03:55 11/15/18 03:55 Intake & Output 11/14/18 11/15/18 11/16/18 06:59 06:59 06:59 Intake Total 3052 1780 Output Total 1200 800 Balance 1852 980 Weight 61.4 kg 60.2 kg Physical Exam: Middle-aged white female lying in bed who is alert oriented and interactive. Her statement this morning is "it is about the same" General appearance: PRESENT: no acute distress, mild distress Head exam: PRESENT: normocephalic Respiratory exam: PRESENT: unlabored Cardiovascular exam: PRESENT: RRR Vascular exam: PRESENT: normal capillary refill GI/Abdominal exam: PRESENT: soft Rectal exam: PRESENT: deferred Extremities exam: PRESENT: other - Currently the right hand is bandaged. With out removing the bandage its observe that there is erythema and induration at the base of the thumb. There is brisk capillary refill in all digits. Neurological exam: PRESENT: alert, awake, oriented to person, oriented to place, oriented to time, oriented to situation. ABSENT: motor sensory deficit Psychiatric exam: PRESENT: depressed Skin exam: PRESENT: dry, intact, warm. ABSENT: cyanosis, rash Results Laboratory Results: 11/15/18 05:25 11/15/18 05:25 11/15/18 11/15/18 05:25 05:25 WBC 15.7 H RBC 3.33 L Hgb 9.5 L Hct 28.5 L MCV 86 MCH 28.6 MCHC 33.4 RDW 14.2 H Plt Count 653 H Seg Neutrophils % 83.0 H Lymphocytes % 9.5 L Monocytes % 6.3 Eosinophils % 0.8 Basophils % 0.4 Absolute Neutrophils 13.0 H Absolute Lymphocytes 1.5 Absolute Monocytes 1.0 Absolute Eosinophils 0.1 Absolute Basophils 0.1 Sodium 137.6 Potassium 3.8 Chloride 102 Carbon Dioxide 27 Anion Gap 9 BUN 15 Creatinine 0.95 Est GFR ( Amer) > 60 Est GFR (Non-Af Amer) 59 L Glucose 52 L Calcium 8.8 Magnesium 1.7 Total Bilirubin 0.1 L AST 8 L ALT 17 Alkaline Phosphatase 122 Total Protein 5.8 L Albumin 2.8 L 11/08/18 12:18 Hand - Right Gram Stain - Final 11/08/18 12:18 Hand - Right Wound Culture - Final Staphylococcus Aureus Group B Beta Streptococcus 11/04/18 11/07/18 12:32 13:47 Creatine Kinase 70 Troponin I 0.014 Impressions: Forearm X-Ray 11/04/18 10:50 IMPRESSION: Diffuse soft tissue swelling about the right thumb. There is a radiodense metallic fragment such as a needle or wire present in the pad of the right thumb. No evidence of subcutaneous emphysema; CT is more sensitive for the evaluation of subcutaneous emphysema. MRI is more sensitive for the evaluation of marrow edema and osteomyelitis. Hand X-Ray 11/04/18 10:50 IMPRESSION: Diffuse soft tissue swelling about the right thumb. There is a radiodense metallic fragment such as a needle or wire present in the pad of the right thumb. No evidence of subcutaneous emphysema; CT is more sensitive for the evaluation of subcutaneous emphysema. MRI is more sensitive for the evaluation of marrow edema and osteomyelitis. Upper Extremity CT 11/05/18 00:00 IMPRESSION: 1. LINEAR METALLIC FOREIGN OBJECT IN THE SOFT TISSUES OF THE PAD OF THE DISTAL THUMB. 2. SKIN DEFECT IN THE PALM WITH EXTENSIVE GAS EXTENDING INTO THE PALMAR SOFT TISSUES SUSPICIOUS FOR INFECTION. NO FLUID COLLECTION OR DRAINABLE ABSCESS. 3. NO SIGNIFICANT BONY FINDINGS. Finger X-Ray 11/12/18 00:00 IMPRESSION: LINEAR METALLIC FOREIGN OBJECT IN THE SOFT TISSUES OF THE DISTAL THUMB. NO CHANGE PER Status: Imported from PACS Assessment & Plan - Diagnosis (1) Infection of right hand Is this a current diagnosis for this admission?: Yes Plan: Plan per the patient's primary surgeon is for continued IV antibiotics and dressing changes. - Time Time Spent with patient: 15-24 minutes Anticipated discharge: Other Within: Other
[2018-11-15] MEDS: OXYCODONE HCL IR 5 MG TABLET PO PRN ×2 (08:32→20:12)
[2018-11-15] MEDS: DOCUSATE SODIUM 100 MG CAPSULE PO SCH (10:05)
[2018-11-15] MEDS: ASPIRIN 81 MG TABLET, ENT COATED PO SCH (10:05)
[2018-11-15] MEDS: INSULIN GLARGINE,HUM.REC.ANLOG 1,000 UNIT/10 ML UNIT SUBCUT SCH ×2 (10:06→21:37)
[2018-11-15] MEDS: FAMOTIDINE 20 MG TABLET PO SCH ×2 (10:06→21:36)
[2018-11-15] MEDS: ACETAMINOPHEN 325 MG TABLET PO PRN (10:09)
[2018-11-15] MEDS: HYDROMORPHONE HCL INJ/PF 2 MG/ML AMPULE IV PRN ×3 (13:39→23:34)
[2018-11-15] MEDS: INSULIN LISPRO 100 UNIT/ML 3 ML VIAL SUBCUT PRN (13:40)
[2018-11-15] MEDS: MICAFUNGIN SODIUM 150 MG in NORMAL SALINE 100 ML IV SCH (17:28)
--- NOTE | 2018-11-15 18:52 | PROGRESS NOTE E ---
Progress Note NAME: RAMAN MANCIA : 1955 AGE: 62Y DATE: 11/15/2018 ROOM: 536 SUBJECTIVE: The patient is a 62-year-old female who was admitted with right hand abscess secondary to foreign body, status post incision and drainage. Started on IV antibiotics. OBJECTIVE: GENERAL: The patient is lying in bed, comfortable, not in distress. VITAL SIGNS: Temperature 98, heart rate 82, respiratory rate 16, blood pressure 115/61, saturation 94%. HEENT: Normocephalic/atraumatic. Pupils equal, round, reactive to light and accommodation bilaterally. Extraocular movements intact. Ears: Tympanic membranes intact bilaterally. No discharge from the ears, no discharge from the nose. NECK: Supple. No JVD, no thyromegaly, no lymphadenopathy. CARDIOVASCULAR: Normal S1, S2. Regular rate and rhythm. No murmur, no gallop. RESPIRATORY: Lungs clear. ABDOMEN: Soft. MUSCULOSKELETAL: No edema. NEUROLOGIC: Awake and alert. SKIN: No rash. LABORATORY: Sodium 137, potassium 3.8, creatinine 0.9. White blood count 15, hemoglobin 9.5. ASSESSMENT AND PLAN: 1. ABSCESS OF THE RIGHT HAND. Status post incision and drainage. Culture grew MSSA and streptococcus B, george albicans. On IV vancomycin and Zosyn. 2. SEPSIS. 3. DIABETES TYPE 2. Continue antibiotics of Zosyn and vancomycin. Continue cefazolin. The patient can be on Zosyn and cefazolin. Will continue cefazolin 2 grams every 8 hours. MEDICAL NECESSITY: IV antibiotics. DICTATING PHYSICIAN: KATHLEEN SALAZAR M.D. [id number] PHY#: [id number] ID: [id number] JOB#: [id number] ACCT: [id number] cc: >
[2018-11-16] MEDS: GABAPENTIN 100 MG CAPSULE PO SCH ×4 (05:12→21:34)
[2018-11-16] MEDS: CEFAZOLIN SODIUM 2 GM in DEXTROSE 5%-WATER 100 ML IV SCH ×3 (05:12→21:27)
[2018-11-16] MEDS: OXYCODONE HCL IR 5 MG TABLET PO PRN ×3 (05:12→18:46)
[2018-11-16 05:27] LABS: ALBUMIN 2.7 g/dL (3.5-5.0); ANION GAP 10 (5-19); BLOOD UREA NITROGEN 15 mg/dL (7-20); CALCIUM 8.4 mg/dL (8.4-10.2); CARBON DIOXIDE 27 mmol/L (22-30); CHLORIDE 99 mmol/L (98-107); GLUCOSE 76 mg/dL (75-110); PHOSPHORUS 4.4 mg/dL (2.5-4.5); POTASSIUM 3.9 mmol/L (3.6-5.0); SODIUM 135.9 mmol/L (137-145)
--- NOTE | 2018-11-16 08:38 | PDOC PROGRESS REPORT ---
Subjective Progress Note for:: 11/16/18 Reason For Visit: SEPSIS,RIGHT HAND WOUND INFECTION,HYPONATREMIA 62-year-old white female now postop day 8 status post I&D of a right palmar abscess. Cultures positive for staph, beta strep, and yeast. Patient on appropriate antibiotics for this. Patient remains afebrile. She complains of pain associate with any motion of the right thumb. Physical Exam Vital Signs: Temp Pulse Resp BP Pulse Ox 36.8 C 93 16 128/57 H 95 11/16/18 08:00 11/16/18 08:00 11/16/18 08:00 11/16/18 08:00 11/16/18 08:00 Intake & Output 11/15/18 11/16/18 11/17/18 06:59 06:59 06:59 Intake Total 1780 2430 Output Total 800 1850 Balance 980 580 Weight 60.2 kg 61.5 kg General appearance: PRESENT: mild distress Head exam: PRESENT: normocephalic Respiratory exam: PRESENT: unlabored Cardiovascular exam: PRESENT: RRR Vascular exam: PRESENT: normal capillary refill Extremities exam: PRESENT: other - Dressing is taken down from the right hand today. Suture lines are intact. The continues to be significant erythema induration and tenderness primarily over the thenar compartment. Passive range of motion of digits 2 through 5 is relatively painless while passive range of motion of the thumb is significantly painful. Results Laboratory Results: 11/15/18 05:25 11/16/18 04:48 11/16/18 04:48 Sodium 135.9 L Potassium 3.9 Chloride 99 Carbon Dioxide 27 Anion Gap 10 BUN 15 Creatinine 1.01 Est GFR ( Amer) > 60 Est GFR (Non-Af Amer) 55 L Glucose 76 Calcium 8.4 Phosphorus 4.4 Albumin 2.7 L 11/04/18 11/07/18 12:32 13:47 Creatine Kinase 70 Troponin I 0.014 Impressions: Forearm X-Ray 11/04/18 10:50 IMPRESSION: Diffuse soft tissue swelling about the right thumb. There is a ra diodense metallic fragment such as a needle or wire present in the pad of the right thumb. No evidence of subcutaneous emphysema; CT is more sensitive for the evaluation of subcutaneous emphysema. MRI is more sensitive for the evaluation of marrow edema and osteomyelitis. Hand X-Ray 11/04/18 10:50 IMPRESSION: Diffuse soft tissue swelling about the right thumb. There is a radiodense metallic fragment such as a needle or wire present in the pad of the right thumb. No evidence of subcutaneous emphysema; CT is more sensitive for the evaluation of subcutaneous emphysema. MRI is more sensitive for the evaluation of marrow edema and osteomyelitis. Upper Extremity CT 11/05/18 00:00 IMPRESSION: 1. LINEAR METALLIC FOREIGN OBJECT IN THE SOFT TISSUES OF THE PAD OF THE DISTAL THUMB. 2. SKIN DEFECT IN THE PALM WITH EXTENSIVE GAS EXTENDING INTO THE PALMAR SOFT TISSUES SUSPICIOUS FOR INFECTION. NO FLUID COLLECTION OR DRAINABLE ABSCESS. 3. NO SIGNIFICANT BONY FINDINGS. Finger X-Ray 11/12/18 00:00 IMPRESSION: LINEAR METALLIC FOREIGN OBJECT IN THE SOFT TISSUES OF THE DISTAL THUMB. NO CHANGE PER Status: Imported from PACS Assessment & Plan - Diagnosis (1) Infection of right hand Is this a current diagnosis for this admission?: Yes Plan: 62-year-old white female status post I&D of a right palmar abscess which is polymicrobial. Patient really does not seem to be turning the corner. Discussed situation has been discussed with Dr. rivers and a tentative plan for repeat I&D of the right palm tomorrow under choice anesthesia - Time Time Spent with patient: 15-24 minutes Anticipated discharge: Other Within: Other
[2018-11-16] MEDS: HYDROMORPHONE HCL INJ/PF 2 MG/ML AMPULE IV PRN ×2 (09:30→14:20)
[2018-11-16] MEDS: INSULIN GLARGINE,HUM.REC.ANLOG 1,000 UNIT/10 ML UNIT SUBCUT SCH (09:35)
[2018-11-16] MEDS: DOCUSATE SODIUM 100 MG CAPSULE PO SCH (09:36)
[2018-11-16] MEDS: FAMOTIDINE 20 MG TABLET PO SCH ×3 (09:36→21:35)
[2018-11-16] MEDS: ASPIRIN 81 MG TABLET, ENT COATED PO SCH (09:36)
[2018-11-16 11:09] LABS: ABSOLUTE BASOPHILS # (AUTO) 0.2 10^3/uL (0.0-0.2); ABSOLUTE EOSINOPHILS # (AUTO) 0.1 10^3/uL (0.0-0.6); ABSOLUTE LYMPHOCYTES (AUTO) 2.2 10^3/uL (0.5-4.7); ABSOLUTE MONOCYTES (AUTO) 0.9 10^3/uL (0.1-1.4); ABSOLUTE NEUT (AUTO) 8.7 10^3/uL (1.7-8.2); BASOPHILS % (AUTO) 1.3 % (0-2); EOSINOPHILS % (AUTO) 1.2 % (0-6); HEMATOCRIT 27.7 % (36.0-47.0); HEMOGLOBIN 9.2 g/dL (12.0-15.5); LYMPHOCYTES % (AUTO) 17.9 % (13-45); MEAN CORPUSCULAR HEMOGLOBIN 28.4 pg (27.0-33.4); MEAN CORPUSCULAR HGB CONC 33.1 g/dL (32.0-36.0); MEAN CORPUSCULAR VOLUME 86 fl (80-97); MONOCYTES % (AUTO) 7.2 % (3-13); PLATELET COUNT 679 10^3/uL (150-450); RED BLOOD COUNT 3.23 10^6/uL (3.72-5.28); SEGMENTED NEUTROPHILS % (AUTO) 72.4 % (42-78); TOTAL CELLS COUNTED % (AUTO) 100 %
[2018-11-16] MEDS: MICAFUNGIN SODIUM 150 MG in NORMAL SALINE 100 ML IV SCH (18:13)
[2018-11-16] MEDS: DEXTROSE 5%-NORMAL SALINE 1,000 ML IV PRN (18:47)
[2018-11-16] MEDS: ONDANSETRON HCL INJ/PF 4 MG/2 ML SDV IV PRN (20:16)
[2018-11-17] MEDS ORDERED: DEXTROSE 5%-NORMAL SALINE 1,000 ML IV PRN
[2018-11-17] MEDS: GABAPENTIN 100 MG CAPSULE PO SCH ×3 (05:00→21:28)
[2018-11-17] MEDS: CEFAZOLIN SODIUM 2 GM in DEXTROSE 5%-WATER 100 ML IV SCH ×3 (05:00→21:27)
[2018-11-17] MEDS: DEXTROSE 5%-NORMAL SALINE 1,000 ML IV PRN ×2 (05:09→13:45)
--- NOTE | 2018-11-17 06:07 | PROGRESS NOTE E ---
Progress Note NAME: RAMAN MANCIA : 1955 AGE: 62Y DATE: 11/16/2018 ROOM: 536 SUBJECTIVE: The patient is a 62-year-old female who was admitted with right hand cellulitis, possible abscess; doing well. She had incision and drainage, but the patient is still complaining of pain. OBJECTIVE: GENERAL: The patient lying in bed comfortable, not in distress. VITAL SIGNS: Blood pressure 128/57, temperature 98.2, heart rate is 93. HEENT: Head: Normocephalic, atraumatic. Pupils round, reactive to light and accommodation bilaterally. Extraocular movements intact. Ears: Tympanic membranes intact bilaterally. No discharge from the ears. No discharge from the nose. NECK: Supple. No increased JVD. No thyromegaly. No lymphadenopathy. CARDIOVASCULAR: Normal S1, S2. Regular rate and rhythm. No murmur. No gallop. RESPIRATORY: Lungs clear. ABDOMEN: Soft. MUSCULOSKELETAL: Edema of the right hand, swelling. LABORATORY DATA: White blood count is 12, hemoglobin 9.2, hematocrit 37. Creatinine is 1.0. ASSESSMENT: 1. CELLULITIS/ABSCESS OF THE RIGHT HAND. Status post incision and drainage. Cultures growing MSSA, enterococcus B, and george. 2. DIABETES TYPE 2. 3. SEPSIS. PLAN: 1. Continue cefazolin 2. The patient is scheduled for incision and drainage under general anesthesia tomorrow. MEDICAL NECESSITY: IV antibiotics and the patient is scheduled for drainage and incision under general anesthesia. DICTATING PHYSICIAN: KATHLEEN SALAZAR M.D. [id number] Y#: [id number] ID: [id number] JOB#: [id number] ACCT: [id number] cc: > MTDD
[2018-11-17] MEDS: ONDANSETRON HCL INJ/PF 4 MG/2 ML SDV IV PRN (09:01)
--- NOTE | 2018-11-17 09:17 | PDOC PROGRESS REPORT ---
Subjective Progress Note for:: 11/17/18 Subjective:: Patient presented to the hospital on 11/04/18 with redness swelling and pain in her right hand. Patient continued to have persistent pain, swelling patient continues to have discomfort with motion of the fingers. Denies fever chills or sweats. Reason For Visit: SEPSIS,RIGHT HAND WOUND INFECTION,HYPONATREMIA Physical Exam Vital Signs: Temp Pulse Resp BP Pulse Ox 98.0 F 99 15 107/54 L 97 11/17/18 06:46 11/17/18 06:46 11/17/18 06:46 11/17/18 06:46 11/17/18 06:46 Intake & Output 11/16/18 11/17/18 11/18/18 06:59 06:59 06:59 Intake Total 2430 3062 Output Total 1850 1800 Balance 580 1262 Weight 61.5 kg 60.4 kg Musculoskeletal exam: PRESENT: other - Right hand: Dressing change today. Cloudy appearing discharge from the mid palm. Continues to have erythema along the thenar eminence. No palpable fluctuance. Pain with passive stretch of the digits. Hypoesthesia is unchanged. Small area of necrosis along the thenar eminence. Results Laboratory Results: 11/16/18 04:48 11/16/18 04:48 11/16/18 04:48 WBC 12.0 H RBC 3.23 L Hgb 9.2 L Hct 27.7 L MCV 86 MCH 28.4 MCHC 33.1 RDW 14.0 Plt Count 679 H Seg Neutrophils % 72.4 Lymphocytes % 17.9 Monocytes % 7.2 Eosinophils % 1.2 Basophils % 1.3 Absolute Neutrophils 8.7 H Absolute Lymphocytes 2.2 Absolute Monocytes 0.9 Absolute Eosinophils 0.1 Absolute Basophils 0.2 11/04/18 11/07/18 12:32 13:47 Creatine Kinase 70 Troponin I 0.014 Impressions: Forearm X-Ray 11/04/18 10:50 IMPRESSION: Diffuse soft tissue swelling about the right thumb. There is a radiodense metallic fragment such as a needle or wire present in the pad of the right thumb. No evidence of subcutaneous emphysema; CT is more sensitive for the evaluation of subcutaneous emphysema. MRI is more sensitive for the evaluation of marrow edema and osteomyelitis. Hand X-Ray 11/04/18 10:50 IMPRESSION: Diffuse soft tissue swelling about the right thumb. There is a radiodense metallic fragment such as a needle or wire present in the pad of the right thumb. No evidence of subcutaneous emphysema; CT is more sensitive for the evaluation of subcutaneous emphysema. MRI is more sensitive for the evaluation of marrow edema and osteomyelitis. Upper Extremity CT 11/05/18 00:00 IMPRESSION: 1. LINEAR METALLIC FOREIGN OBJECT IN THE SOFT TISSUES OF THE PAD OF THE DISTAL THUMB. 2. SKIN DEFECT IN THE PALM WITH EXTENSIVE GAS EXTENDING INTO THE PALMAR SOFT TISSUES SUSPICIOUS FOR INFECTION. NO FLUID COLLECTION OR DRAINABLE ABSCESS. 3. NO SIGNIFICANT BONY FINDINGS. Finger X-Ray 11/12/18 00:00 IMPRESSION: LINEAR METALLIC FOREIGN OBJECT IN THE SOFT TISSUES OF THE DISTAL THUMB. NO CHANGE PER Assessment & Plan - Diagnosis (1) Infection of right hand Is this a current diagnosis for this admission?: Yes Plan: Postop day #6 status post irrigation debridement mid palmar abscess 1. Cultures demonstrate MSSA, group B strep and fungus. Patient will continue IV antibiotics and antifungals as per ID recommendation. Patient continues to have swelling and pain is not seen significant improvement after extensive irrigation and debridement of the right hand. Given the persistent white cell count despite improving patient would benefit from repeat irrigation debridement. Plan will be to tentatively proceed with operative intervention today versus tomorrow.
[2018-11-17] MEDS: FAMOTIDINE 20 MG TABLET PO SCH ×2 (11:51→21:28)
[2018-11-17] MEDS: HYDROMORPHONE HCL INJ/PF 2 MG/ML AMPULE IV PRN ×2 (12:05→20:17)
--- NOTE | 2018-11-17 16:14 | PDOC PROGRESS REPORT ---
Subjective Progress Note for:: 11/17/18 Subjective:: Assumed care today. Reviewed chart. This is a 62 yr old female with a PMH of diabetes and history of bilateral lower extremity amputation who was admitted with right palmar abscess after sustaining a wound from a fall. She underwent I&D by ortho on 11/12/18. She was started initially on broad spectrum antibiotics. Her cultures came back positive for MSSA, Group B Strep and Sarahi and she was swithced to cefazolin and Micafungin per ID recommendation. She had recurrence of swelling in the area and drainage and ortho is planning for a repeat I&D today or tomorrow. No other acute issues. No fever or chills. Reason For Visit: SEPSIS,RIGHT HAND WOUND INFECTION,HYPONATREMIA Physical Exam Vital Signs: Temp Pulse Resp BP Pulse Ox 99.1 F 86 17 111/50 L 92 11/17/18 12:15 11/17/18 12:15 11/17/18 12:15 11/17/18 12:15 11/17/18 12:15 Intake & Output 11/16/18 11/17/18 11/18/18 06:59 06:59 06:59 Intake Total 2430 3062 960 Output Total 1850 1800 Balance 580 1262 960 Weight 135 lb 9.349 oz 133 lb 2.547 oz Results Laboratory Results: 11/16/18 04:48 11/16/18 04:48 11/08/18 12:18 Hand - Right Gram Stain - Final 11/08/18 12:18 Hand - Right Wound Culture - Final Staphylococcus Aureus Group B Beta Streptococcus 11/04/18 11/07/18 12:32 13:47 Creatine Kinase 70 Troponin I 0.014 Impressions: Forearm X-Ray 11/04/18 10:50 IMPRESSION: Diffuse soft tissue swelling about the right thumb. There is a radiodense metallic fragment such as a needle or wire present in the pad of the right thumb. No evidence of subcutaneous emphysema; CT is more sensitive for the evaluation of subcutaneous emphysema. MRI is more sensitive for the evaluation of marrow edema and osteomyelitis. Hand X-Ray 11/04/18 10:50 IMPRESSION: Diffuse soft tissue swelling about the right thumb. There is a radiodense metallic fragment such as a needle or wire present in the pad of the right thumb. No evidence of subcutaneous emphysema; CT is more sensitive for the evaluation of subcutaneous emphysema. MRI is more sensitive for the evaluation of marrow edema and osteomyelitis. Upper Extremity CT 11/05/18 00:00 IMPRESSION: 1. LINEAR METALLIC FOREIGN OBJECT IN THE SOFT TISSUES OF THE PAD OF THE DISTAL THUMB. 2. SKIN DEFECT IN THE PALM WITH EXTENSIVE GAS EXTENDING INTO THE PALMAR SOFT TISSUES SUSPICIOUS FOR INFECTION. NO FLUID COLLECTION OR DRAINABLE ABSCESS. 3. NO SIGNIFICANT BONY FINDINGS. Finger X-Ray 11/12/18 00:00 IMPRESSION: LINEAR METALLIC FOREIGN OBJECT IN THE SOFT TISSUES OF THE DISTAL THUMB. NO CHANGE PER Assessment & Plan - Diagnosis (1) Abscess of right hand Is this a current diagnosis for this admission?: Yes Plan: S/P Irrigation debridement of mid palmar abscess by ortho on 11/12/18. Noted cultures growing MSSA, group B Strep and Sarahi. On cefazolin and micafungin per ID recommendation. Plan for repeat I&D today or tomorrow by ortho. (2) Foreign body of finger of right hand Is this a current diagnosis for this admission?: Yes Plan: Noted foreign metallic object on right thumb on CT and x-ray imaging. Noted documentation that orthoDr. Diaz is aware of foreign object and deems this is not a concern. - Time Time Spent with patient: 25-34 minutes
[2018-11-17] MEDS ORDERED: FENTANYL CITRATE INJ/PF 100 MCG/2 ML AMPUL ONE (18:39)
[2018-11-17] MEDS ORDERED: MIDAZOLAM 2 MG/2 ML INJ ONE (18:39)
[2018-11-17] MEDS ORDERED: ONDANSETRON HCL INJ/PF 4 MG/2 ML SDV ONE (18:40)
[2018-11-17] MEDS ORDERED: PROPOFOL INJ 200 MG/20 ML VIAL IV ONE (18:40)
[2018-11-17] MEDS ORDERED: DEXAMETHASONE SOD PHOSPHATE INJ 4 MG/1 ML VIAL ONE (18:40)
[2018-11-17] MEDS ORDERED: BACITRACIN INJ 50,000 UNIT VIAL ONE (18:45)
[2018-11-17] MEDS ORDERED: DIPHENHYDRAMINE HCL 50 MG/ML VIAL IV PRN (19:17)
[2018-11-17] MEDS ORDERED: OXYCODONE-ACETAMINOPHEN 5-325 MG TABLET PO PRN (19:17)
[2018-11-17] MEDS ORDERED: ONDANSETRON HCL INJ/PF 4 MG/2 ML SDV IV PRN (19:17)
[2018-11-17] MEDS ORDERED: FENTANYL CITRATE INJ/PF 100 MCG/2 ML AMPUL IV PRN ×3 (19:17)
[2018-11-17] MEDS ORDERED: PROMETHAZINE HCL INJ 25 MG/1 ML VIAL IV PRN ×2 (19:17)
[2018-11-17] MEDS ORDERED: MEPERIDINE HCL/PF INJ 25 MG/1 ML DISP.SYRIN IV PRN (19:17)
--- NOTE | 2018-11-17 19:30 | Operative Report ---
Operative Report DATE OF SURGERY: 11/17/18 PREOPERATIVE DIAGNOSIS: Right hand infection POSTOPERATIVE DIAGNOSIS: Right Hand Horshoe Abscess OPERATION: Complicated Irrigation and excisiona debridement right horshoe abscess SURGEON: TAMY STEVENSON ANESTHESIA: GA TISSUE REMOVED OR ALTERED: Aerobic, anaerobic AFB and fungal cultures. necrotic tisssue to path ESTIMATED BLOOD LOSS: Minimal PROCEDURE: With the patient supine on the operative table the right upper extremities prepped and draped in sterile fashion. The sutures are removed from the e xisting incisions. The palmar incision open spontaneously and is surrounded by necrotic tissue primarily in the palmar fascia and subcutaneous tissue and then out into the skin overlying the thenar eminence. This is all debrided sharply. Cultures are taken from the thenar eminence when this is probed bluntly. Any attempt to completely removing the necrotic tissue would have led to flaying the palmar skin almost completely. Therefore I took what was clearly necrotic and made a decision to packed this with iodoform gauze which was done. Plan would be for dressing changes and allow this to heal by secondary intent.
[2018-11-17] MEDS: MICAFUNGIN SODIUM 150 MG in NORMAL SALINE 100 ML IV SCH (20:15)
[2018-11-17] MEDS: DOCUSATE SODIUM 100 MG CAPSULE PO SCH (20:34)
[2018-11-17] MEDS: ASPIRIN 81 MG TABLET, ENT COATED PO SCH (20:34)
[2018-11-17] MEDS: OXYCODONE HCL IR 5 MG TABLET PO PRN (23:05)
[2018-11-17] MEDS: ACETAMINOPHEN 325 MG TABLET PO PRN (23:05)
[2018-11-18] MEDS: HYDROMORPHONE HCL INJ/PF 2 MG/ML AMPULE IV PRN ×4 (00:46→12:29)
[2018-11-18] MEDS: RINGERS SOLUTION,LACTATED 1,000 ML IV PRN ×4 (01:15→23:00)
[2018-11-18] MEDS: GABAPENTIN 100 MG CAPSULE PO SCH ×3 (05:31→22:46)
[2018-11-18] MEDS: CEFAZOLIN SODIUM 2 GM in DEXTROSE 5%-WATER 100 ML IV SCH ×3 (05:31→22:46)
[2018-11-18] MEDS: ONDANSETRON HCL INJ/PF 4 MG/2 ML SDV IV PRN ×3 (07:02→23:00)
[2018-11-18] MEDS: ASPIRIN 81 MG TABLET, ENT COATED PO SCH (09:31)
[2018-11-18] MEDS: FAMOTIDINE 20 MG TABLET PO SCH ×2 (09:31→22:46)
[2018-11-18] MEDS: DOCUSATE SODIUM 100 MG CAPSULE PO SCH (09:31)
[2018-11-18] MEDS ORDERED: PROMETHAZINE HCL INJ 25 MG/1 ML VIAL IM ONE (16:15)
--- NOTE | 2018-11-18 17:16 | PDOC PROGRESS REPORT ---
Subjective Progress Note for:: 11/18/18 Subjective:: No adverse events overnight. No new complaints. She was asleep whenever I came in but when she woke up she told me that her hand was hurting. She has had some nausea today but says she felt like eating her lunch. Reason For Visit: SEPSIS,RIGHT HAND WOUND INFECTION,HYPONATREMIA Physical Exam Vital Signs: Temp Pulse Resp BP Pulse Ox 97.9 F 87 16 145/72 H 95 11/18/18 15:15 11/18/18 15:15 11/18/18 15:15 11/18/18 15:15 11/18/18 15:15 Intake & Output 11/17/18 11/18/18 11/19/18 06:59 06:59 06:59 Intake Total 3062 4080 1000 Output Total 1800 10 Balance 1262 4070 1000 Weight 60.4 kg 61.4 kg General appearance: PRESENT: no acute distress, cooperative, disheveled Respiratory exam: PRESENT: clear to auscultation marce, symmetrical, unlabored. ABSENT: accessory muscle use, crackles, prolonged expiratory phas, rhonchi, tachypnea, wheezes Cardiovascular exam: PRESENT: RRR, +S1, +S2 Vascular exam: PRESENT: normal capillary refill GI/Abdominal exam: PRESENT: normal bowel sounds, soft. ABSENT: distended, guarding, rebound, tenderness Extremities exam: PRESENT: other - She had bilateral BKA's. Her right hand was covered in a heavy bandage Musculoskeletal exam: PRESENT: tenderness - Right hand Neurological exam: PRESENT: alert, awake, oriented to person, oriented to place, oriented to time, oriented to situation Psychiatric exam: PRESENT: appropriate affect, normal mood Skin exam: PRESENT: dry, warm Results Laboratory Results: 11/16/18 04:48 11/16/18 04:48 11/08/18 12:18 Hand - Right Gram Stain - Final 11/08/18 12:18 Hand - Right Wound Culture - Final Staphylococcus Aureus Group B Beta Streptococcus No Anaerobic Organisms 11/04/18 11/07/18 12:32 13:47 Creatine Kinase 70 Troponin I 0.014 Impressions: Forearm X-Ray 11/04/18 10:50 IMPRESSION: Diffuse soft tissue swelling about the right thumb. There is a radiodense metallic fragment such as a needle or wire present in the pad of the right thumb. No evidence of subcutaneous emphysema; CT is more sensitive for the evaluation of subcutaneous emphysema. MRI is more sensitive for the evaluation of marrow edema and osteomyelitis. Hand X-Ray 11/04/18 10:50 IMPRESSION: Diffuse soft tissue swelling about the right thumb. There is a radiodense metallic fragment such as a needle or wire present in the pad of the right thumb. No evidence of subcutaneous emphysema; CT is more sensitive for the evaluation of subcutaneous emphysema. MRI is more sensitive for the evaluation of marrow edema and osteomyelitis. Upper Extremity CT 11/05/18 00:00 IMPRESSION: 1. LINEAR METALLIC FOREIGN OBJECT IN THE SOFT TISSUES OF THE PAD OF THE DISTAL THUMB. 2. SKIN DEFECT IN THE PALM WITH EXTENSIVE GAS EXTENDING INTO THE PALMAR SOFT TISSUES SUSPICIOUS FOR INFECTION. NO FLUID COLLECTION OR DRAINABLE ABSCESS. 3. NO SIGNIFICANT BONY FINDINGS. Finger X-Ray 11/12/18 00:00 IMPRESSION: LINEAR METALLIC FOREIGN OBJECT IN THE SOFT TISSUES OF THE DISTAL THUMB. NO CHANGE PER Assessment & Plan - Diagnosis (1) Abscess of right hand Is this a current diagnosis for this admission?: Yes Plan: She is on IV antibiotics and had her second I&D yesterday. We will continue her current antibiotics and wait for the second set of cultures before we make any decisions on her discharge antibiotics. - Time Time Spent with patient: 25-34 minutes
[2018-11-18] MEDS: MICAFUNGIN SODIUM 150 MG in NORMAL SALINE 100 ML IV SCH (18:22)
[2018-11-19] MEDS: RINGERS SOLUTION,LACTATED 1,000 ML IV PRN ×3 (05:44→22:53)
[2018-11-19] MEDS: ONDANSETRON HCL INJ/PF 4 MG/2 ML SDV IV PRN ×3 (05:45→15:05)
[2018-11-19] MEDS: CEFAZOLIN SODIUM 2 GM in DEXTROSE 5%-WATER 100 ML IV SCH ×3 (05:45→22:50)
[2018-11-19] MEDS: OXYCODONE HCL IR 5 MG TABLET PO PRN ×2 (05:46→12:53)
[2018-11-19] MEDS: GABAPENTIN 100 MG CAPSULE PO SCH ×3 (05:46→22:50)
[2018-11-19] MEDS ORDERED: METOCLOPRAMIDE HCL INJ/PF 10 MG/2 ML SDV IV ONE (11:45)
[2018-11-19] MEDS: ASPIRIN 81 MG TABLET, ENT COATED PO SCH (12:54)
[2018-11-19] MEDS: FAMOTIDINE 20 MG TABLET PO SCH ×2 (12:54→22:50)
[2018-11-19] MEDS: DOCUSATE SODIUM 100 MG CAPSULE PO SCH (12:55)
--- NOTE | 2018-11-19 16:39 | PDOC PROGRESS REPORT ---
Subjective Progress Note for:: 11/19/18 Subjective:: No adverse events overnight. She is been nauseated today. We gave her some Zofran but she was still a bit nauseated so we added some Reglan and that has seemed to help. She has been sipping on some giovanni jones is not been vomiting anymore. Reason For Visit: SEPSIS,RIGHT HAND WOUND INFECTION,HYPONATREMIA Physical Exam Vital Signs: Temp Pulse Resp BP Pulse Ox 98.5 F 90 15 135/59 H 94 11/19/18 15:27 11/19/18 15:27 11/19/18 15:27 11/19/18 15:27 11/19/18 15:27 Intake & Output 11/18/18 11/19/18 11/20/18 06:59 06:59 06:59 Intake Total 4080 3791 685 Output Total 10 600 Balance 4070 3191 685 Weight 61.4 kg 54.4 kg General appearance: PRESENT: no acute distress, cooperative, disheveled, looks fatigued Respiratory exam: PRESENT: clear to auscultation marce, symmetrical, unlabored. ABSENT: accessory muscle use, crackles, prolonged expiratory phas, rhonchi, tachypnea, wheezes Cardiovascular exam: PRESENT: RRR, +S1, +S2 Vascular exam: PRESENT: normal capillary refill GI/Abdominal exam: PRESENT: normal bowel sounds, soft. ABSENT: distended, guarding, rebound, tenderness Extremities exam: PRESENT: other - She had bilateral AKA's. Her right hand was covered in a heavy bandage Musculoskeletal exam: PRESENT: tenderness - Right hand Neurological exam: PRESENT: alert, awake, oriented to person, oriented to place, oriented to time, oriented to situation Psychiatric exam: PRESENT: appropriate affect, normal mood Skin exam: PRESENT: dry, warm Results Laboratory Results: 11/16/18 04:48 11/16/18 04:48 11/08/18 12:18 Hand - Right Gram Stain - Final 11/08/18 12:18 Hand - Right Wound Culture - Final Staphylococcus Aureus Group B Beta Streptococcus No Anaerobic Organisms 11/04/18 11/07/18 12:32 13:47 Creatine Kinase 70 Troponin I 0.014 Impressions: Forearm X-Ray 11/04/18 10:50 IMPRESSION: Diffuse soft tissue swelling about the right thumb. There is a radiodense metallic fragment such as a needle or wire present in the pad of the right thumb. No evidence of subcutaneous emphysema; CT is more sensitive for the evaluation of subcutaneous emphysema. MRI is more sensitive for the evaluation of marrow edema and osteomyelitis. Hand X-Ray 11/04/18 10:50 IMPRESSION: Diffuse soft tissue swelling about the right thumb. There is a radiodense metallic fragment such as a needle or wire present in the pad of the right thumb. No evidence of subcutaneous emphysema; CT is more sensitive for the evaluation of subcutaneous emphysema. MRI is more sensitive for the ev aluation of marrow edema and osteomyelitis. Upper Extremity CT 11/05/18 00:00 IMPRESSION: 1. LINEAR METALLIC FOREIGN OBJECT IN THE SOFT TISSUES OF THE PAD OF THE DISTAL T HUMB. 2. SKIN DEFECT IN THE PALM WITH EXTENSIVE GAS EXTENDING INTO THE PALMAR SOFT TISSUES SUSPICIOUS FOR INFECTION. NO FLUID COLLECTION OR DRAINABLE ABSCESS. 3. NO SIGNIFICANT BONY FINDINGS. Finger X-Ray 11/12/18 00:00 IMPRESSION: LINEAR METALLIC FOREIGN OBJECT IN THE SOFT TISSUES OF THE DISTAL THUMB. NO CHANGE PER Assessment & Plan - Diagnosis (1) Abscess of right hand Is this a current diagnosis for this admission?: Yes Plan: She is on IV antibiotics and had her second I&D with cultures 2 days ago. We will continue her current antibiotics and wait for the second set of cultures before we make any decisions on her discharge antibiotics. - Time Time Spent with patient: 25-34 minutes
[2018-11-19] MEDS: MICAFUNGIN SODIUM 150 MG in NORMAL SALINE 100 ML IV SCH (17:54)
[2018-11-20] MEDS: CEFAZOLIN SODIUM 2 GM in DEXTROSE 5%-WATER 100 ML IV SCH ×3 (05:33→22:40)
[2018-11-20] MEDS: GABAPENTIN 100 MG CAPSULE PO SCH ×3 (05:34→22:36)
[2018-11-20] MEDS: METOCLOPRAMIDE HCL INJ/PF 10 MG/2 ML SDV IV PRN ×2 (06:45→23:36)
--- NOTE | 2018-11-20 07:02 | PDOC PROGRESS REPORT ---
Subjective Progress Note for:: 11/20/18 Reason For Visit: SEPSIS,RIGHT HAND WOUND INFECTION,HYPONATREMIA 62-year-old white female with a right hand abscess status post I&D x2 now with wet-to-dry dressing changes. Cultures from the second I&D have grown Sraahi. Physical Exam Vital Signs: Temp Pulse Resp BP Pulse Ox 36.6 C 82 16 137/65 H 95 11/20/18 03:15 11/20/18 03:15 11/20/18 03:15 11/20/18 03:15 11/20/18 03:15 Intake & Output 11/19/18 11/20/18 11/21/18 06:59 06:59 06:59 Intake Total 3791 1430 Output Total 600 Balance 3191 1430 Weight 54.4 kg 54.1 kg General appearance: PRESENT: no acute distress Head exam: PRESENT: normocephalic Respiratory exam: PRESENT: unlabored Cardiovascular exam: PRESENT: RRR Vascular exam: PRESENT: normal capillary refill Extremities exam: PRESENT: other - Improved active range of motion of right thumb Neurological exam: PRESENT: alert, awake, oriented to person, oriented to place, oriented to time, oriented to situation. ABSENT: motor sensory deficit Skin exam: PRESENT: dry, intact, warm. ABSENT: cyanosis, rash Results Laboratory Results: 11/16/18 04:48 11/16/18 04:48 11/04/18 11/07/18 12:32 13:47 Creatine Kinase 70 Troponin I 0.014 Impressions: Forearm X-Ray 11/04/18 10:50 IMPRESSION: Diffuse soft tissue swelling about the right thumb. There is a radiodense metallic fragment such as a needle or wire present in the pad of the right thumb. No evidence of subcutaneous emphysema; CT is more sensitive for the evaluation of subcutaneous emphysema. MRI is more sensitive for the evaluation of marrow edema and osteomyelitis. Hand X-Ray 11/04/18 10:50 IMPRESSION: Diffuse soft tissue swelling about the right thumb. There is a radiodense metallic fragment such as a needle or wire present in the pad of the right thumb. No evidence of subcutaneous emphysema; CT is more sensitive for the evaluation of subcutaneous emphysema. MRI is more sensitive for the evaluation of marrow edema and osteomyelitis. Upper Extremity CT 11/05/18 00:00 IMPRESSION: 1. LINEAR METALLIC FOREIGN OBJECT IN THE SOFT TISSUES OF THE PAD OF THE DISTAL THUMB. 2. SKIN DEFECT IN THE PALM WITH EXTENSIVE GAS EXTENDING INTO THE PALMAR SOFT TISSUES SUSPICIOUS FOR INFECTION. NO FLUID COLLECTION OR DRAINABLE ABSCESS. 3. NO SIGNIFICANT BONY FINDINGS. Finger X-Ray 11/12/18 00:00 IMPRESSION: LINEAR METALLIC FOREIGN OBJECT IN THE SOFT TISSUES OF THE DISTAL THUMB. NO CHANGE PER Status: Imported from PACS Assessment & Plan - Diagnosis (1) Infection of right hand Is this a current diagnosis for this admission?: Yes Plan: Continue wet-to-dry dressing changes and IV antibiotics - Time Time Spent with patient: 15-24 minutes Anticipated discharge: Other Within: Other
[2018-11-20] MEDS: DOCUSATE SODIUM 100 MG CAPSULE PO SCH (09:05)
[2018-11-20] MEDS: FAMOTIDINE 20 MG TABLET PO SCH ×2 (09:06→22:36)
[2018-11-20] MEDS: RINGERS SOLUTION,LACTATED 1,000 ML IV PRN ×2 (09:06→15:02)
[2018-11-20] MEDS: HYDROMORPHONE HCL INJ/PF 2 MG/ML AMPULE IV PRN ×3 (09:06→21:22)
[2018-11-20] MEDS: ASPIRIN 81 MG TABLET, ENT COATED PO SCH (09:06)
[2018-11-20] MEDS: INSULIN LISPRO 100 UNIT/ML 3 ML VIAL SUBCUT PRN ×2 (12:14→17:20)
[2018-11-20 14:09] LABS: ANION GAP 13 (5-19); BLOOD UREA NITROGEN 11 mg/dL (7-20); CALCIUM 8.3 mg/dL (8.4-10.2); CARBON DIOXIDE 29 mmol/L (22-30); CHLORIDE 95 mmol/L (98-107); GLUCOSE 199 mg/dL (75-110); POTASSIUM 3.3 mmol/L (3.6-5.0); SODIUM 137.4 mmol/L (137-145)
[2018-11-20] MEDS: MICAFUNGIN SODIUM 150 MG in NORMAL SALINE 100 ML IV SCH (17:20)
[2018-11-20] MEDS: ONDANSETRON HCL INJ/PF 4 MG/2 ML SDV IV PRN ×2 (17:21→21:22)
--- NOTE | 2018-11-20 18:44 | PDOC PROGRESS REPORT ---
Subjective Progress Note for:: 11/20/18 Subjective:: No adverse events overnight. Appetite is picking up and her nausea is improving. She was able to eat more of her meals today. No fevers. Reason For Visit: SEPSIS,RIGHT HAND WOUND INFECTION,HYPONATREMIA Physical Exam Vital Signs: Temp Pulse Resp BP Pulse Ox 98.2 F 85 19 142/69 H 94 11/20/18 15:33 11/20/18 15:33 11/20/18 15:33 11/20/18 15:33 11/20/18 15:33 Intake & Output 11/19/18 11/20/18 11/21/18 06:59 06:59 06:59 Intake Total 3791 1430 3266 Output Total 600 Balance 3191 1430 3266 Weight 54.4 kg 54.1 kg General appearance: PRESENT: no acute distress, cooperative, disheveled, looks fatigued Respiratory exam: PRESENT: clear to auscultation marce, symmetrical, unlabored. ABSENT: accessory muscle use, crackles, prolonged expiratory phas, rhonchi, tachypnea, wheezes Cardiovascular exam: PRESENT: RRR, +S1, +S2 Vascular exam: PRESENT: normal capillary refill GI/Abdominal exam: PRESENT: normal bowel sounds, soft. ABSENT: distended, guarding, rebound, tenderness Extremities exam: PRESENT: other - She had bilateral AKA's. Her right hand was covered in a heavy bandage Musculoskeletal exam: PRESENT: tenderness - Right hand Neurological exam: PRESENT: alert, awake, oriented to person, oriented to place, oriented to time, oriented to situation Psychiatric exam: PRESENT: appropriate affect, normal mood Skin exam: PRESENT: dry, warm Results Laboratory Results: 11/16/18 04:48 11/20/18 13:06 11/20/18 11/20/18 10:59 13:06 Sodium Cancelled 137.4 Potassium Cancelled 3.3 L Chloride Cancelled 95 L Carbon Dioxide Cancelled 29 Anion Gap Cancelled 13 BUN Cancelled 11 Creatinine Cancelled 0.87 Est GFR ( Amer) Cancelled > 60 Est GFR (Non-Af Amer) Cancelled > 60 Glucose Cancelled 199 H Calcium Cancelled 8.3 L 11/04/18 11/07/18 12:32 13:47 Creatine Kinase 70 Troponin I 0.014 Impressions: Forearm X-Ray 11/04/18 10:50 IMPRESSION: Diffuse soft tissue swelling about the right thumb. There is a radiodense metallic fragment such as a needle or wire present in the pad of the right thumb. No evidence of subcutaneous emphysema; CT is more sensitive for the evaluation of subcutaneous emphysema. MRI is more sensitive for the evaluation of marrow edema and osteomyelitis. Hand X-Ray 11/04/18 10:50 IMPRESSION: Diffuse soft tissue swelling about the right thumb. There is a radiodense metallic fragment such as a needle or wire present in the pad of the right thumb. No evidence of subcutaneous emphysema; CT is more sensitive for the evaluation of subcutaneous emphysema. MRI is more sensitive for the evaluation of marrow edema and osteomyelitis. Upper Extremity CT 11/05/18 00:00 IMPRESSION: 1. LINEAR METALLIC FOREIGN OBJECT IN THE SOFT TISSUES OF THE PAD OF THE DISTAL THUMB. 2. SKIN DEFECT IN THE PALM WITH EXTENSIVE GAS EXTENDING INTO THE PALMAR SOFT TISSUES SUSPICIOUS FOR INFECTION. NO FLUID COLLECTION OR DRAINABLE ABSCESS. 3. NO SIGNIFICANT BONY FINDINGS. Finger X-Ray 11/12/18 00:00 IMPRESSION: LINEAR METALLIC FOREIGN OBJECT IN THE SOFT TISSUES OF THE DISTAL THUMB. NO CHANGE PER Assessment & Plan - Diagnosis (1) Abscess of right hand Is this a current diagnosis for this admission?: Yes Plan: We should be able to send her home on Keflex and Diflucan. She can follow-up with orthopedics as an outpatient. If she still eating in the morning and not had a recurrence of her nausea we will discharge her at that time. - Time Time Spent with patient: 15-24 minutes
[2018-11-21] MEDS ORDERED: PROCHLORPERAZINE EDISYLATE INJ 10 MG/2 ML VIAL ONE (01:57)
[2018-11-21] MEDS ORDERED: PROCHLORPERAZINE EDISYLATE INJ 10 MG/2 ML VIAL IV ONE (02:00)
[2018-11-21] MEDS: RINGERS SOLUTION,LACTATED 1,000 ML IV PRN ×2 (03:51→15:10)
[2018-11-21] MEDS: GABAPENTIN 100 MG CAPSULE PO SCH ×3 (06:28→21:35)
[2018-11-21] MEDS: CEFAZOLIN SODIUM 2 GM in DEXTROSE 5%-WATER 100 ML IV SCH ×3 (06:29→21:35)
[2018-11-21] MEDS: HYDROMORPHONE HCL INJ/PF 2 MG/ML AMPULE IV PRN (08:12)
[2018-11-21] MEDS: ONDANSETRON HCL INJ/PF 4 MG/2 ML SDV IV PRN (08:13)
[2018-11-21] MEDS: DOCUSATE SODIUM 100 MG CAPSULE PO SCH (09:51)
[2018-11-21] MEDS: FAMOTIDINE 20 MG TABLET PO SCH ×2 (09:57→21:35)
[2018-11-21] MEDS: ASPIRIN 81 MG TABLET, ENT COATED PO SCH (09:57)
[2018-11-21] MEDS ORDERED: KETOROLAC TROMETHAMINE INJ/PF 30 MG/1 ML SDV IV PRN (12:11)
[2018-11-21 13:49] LABS: HEMATOCRIT 29.6 % (36.0-47.0); HEMOGLOBIN 9.6 g/dL (12.0-15.5); MEAN CORPUSCULAR HGB CONC 32.5 g/dL (32.0-36.0); MEAN CORPUSCULAR VOLUME 86 fl (80-97); PLATELET COUNT 661 10^3/uL (150-450); RED BLOOD COUNT 3.44 10^6/uL (3.72-5.28); RED CELL DISTRIBUTION WIDTH 14.4 % (11.5-14.0); WHITE BLOOD COUNT 14.5 10^3/uL (4.0-10.5)
[2018-11-21 14:30] LABS: ALANINE AMINOTRANSFERASE 11 U/L (9-52); ALBUMIN 2.4 g/dL (3.5-5.0); ALKALINE PHOSPHATASE 114 U/L (38-126); ANION GAP 8 (5-19); ASPARTATE AMINO TRANSFERASE 9 U/L (14-36); BILIRUBIN,DIRECT 0.2 mg/dL (0.0-0.4); BILIRUBIN,TOTAL 0.2 mg/dL (0.2-1.3); BLOOD UREA NITROGEN 12 mg/dL (7-20); CALCIUM 7.9 mg/dL (8.4-10.2); CARBON DIOXIDE 30 mmol/L (22-30); CHLORIDE 93 mmol/L (98-107); GLUCOSE 213 mg/dL (75-110); PHOSPHORUS 3.1 mg/dL (2.5-4.5); POTASSIUM 3.6 mmol/L (3.6-5.0); SODIUM 131.3 mmol/L (137-145); TOTAL PROTEIN 5.2 g/dL (6.3-8.2)
[2018-11-21] MEDS: FLUCONAZOLE 200 MG/NS RTU 200 MG/100 ML RTUPB IV SCH (15:10)
[2018-11-21] MEDS: PROCHLORPERAZINE EDISYLATE INJ 10 MG/2 ML VIAL IV PRN ×2 (15:12→23:55)
--- NOTE | 2018-11-21 17:29 | PDOC PROGRESS REPORT ---
Subjective Progress Note for:: 11/21/18 Subjective:: I thought for sure would be able to discharge her today but she is been nauseated. Yesterday she was eating and today she is nauseated again and has been throwing up and is not eaten anything and just does not look like she feels very well. She has not been running any fevers. Reason For Visit: SEPSIS,RIGHT HAND WOUND INFECTION,HYPONATREMIA Physical Exam Vital Signs: Temp Pulse Resp BP Pulse Ox 98.5 F 90 18 140/71 H 97 11/21/18 16:00 11/21/18 16:00 11/21/18 16:00 11/21/18 16:00 11/21/18 16:00 Intake & Output 11/20/18 11/21/18 11/22/18 06:59 06:59 06:59 Intake Total 1430 4688 1300 Output Total 600 Balance 1430 4088 1300 Weight 54.1 kg 55.3 kg General appearance: PRESENT: no acute distress, cooperative, disheveled, looks fatigued Respiratory exam: PRESENT: clear to auscultation marce, symmetrical, unlabored. ABSENT: accessory muscle use, crackles, prolonged expiratory phas, rhonchi, tachypnea, wheezes Cardiovascular exam: PRESENT: RRR, +S1, +S2 Vascular exam: PRESENT: normal capillary refill GI/Abdominal exam: PRESENT: normal bowel sounds, soft. ABSENT: distended, guarding, rebound, tenderness Extremities exam: PRESENT: other - She had bilateral AKA's. Her right hand was covered in a heavy bandage Musculoskeletal exam: PRESENT: tenderness - Right hand Neurological exam: PRESENT: Drowsy but arousable, oriented to person, oriented to place, oriented to time, oriented to situation Psychiatric exam: PRESENT: appropriate affect, normal mood Skin exam: PRESENT: dry, warm Results Laboratory Results: 11/21/18 13:22 11/21/18 13:22 11/21/18 11/21/18 13:22 13:22 WBC 14.5 H RBC 3.44 L Hgb 9.6 L Hct 29.6 L MCV 86 MCH 28.0 MCHC 32.5 RDW 14.4 H Plt Count 661 H Sodium 131.3 L Potassium 3.6 Chloride 93 L Carbon Dioxide 30 Anion Gap 8 BUN 12 Creatinine 0.86 Est GFR ( Amer) > 60 Est GFR (Non-Af Amer) > 60 Glucose 213 H Calcium 7.9 L Phosphorus 3.1 Magnesium 1.4 L Total Bilirubin 0.2 AST 9 L ALT 11 Alkaline Phosphatase 114 Total Protein 5.2 L Albumin 2.4 L 11/17/18 19:07 Hand - Right Gram Stain - Final 11/17/18 19:07 Hand - Right Wound Culture - Final C.albicans/C.dubliniensis No Anaerobic Organisms 11/04/18 11/07/18 12:32 13:47 Creatine Kinase 70 Troponin I 0.014 Impressions: Forearm X-Ray 11/04/18 10:50 IMPRESSION: Diffuse soft tissue swelling about the right thumb. There is a radiodense metallic fragment such as a needle or wire present in the pad of the right thumb. No evidence of subcutaneous emphysema; CT is more sensitive for the evaluation of subcutaneous emphysema. MRI is more sensitive for the evaluation of marrow edema and osteomyelitis. Hand X-Ray 11/04/18 10:50 IMPRESSION: Diffuse soft tissue swelling about the right thumb. There is a radiodense metallic fragment such as a needle or wire present in the pad of the right thumb. No evidence of subcutaneous emphysema; CT is more sensitive for th e evaluation of subcutaneous emphysema. MRI is more sensitive for the evaluation of marrow edema and osteomyelitis. Upper Extremity CT 11/05/18 00:00 IMPRESSION: 1. LINEAR METALLIC FOREIGN OBJECT IN THE SOFT TISSUES OF THE PAD OF THE DISTAL THUMB. 2. SKIN DEFECT IN THE PALM WITH EXTENSIVE GAS EXTENDING INTO THE PALMAR SOFT TISSUES SUSPICIOUS FOR INFECTION. NO FLUID COLLECTION OR DRAINABLE ABSCESS. 3. NO SIGNIFICANT BONY FINDINGS. Finger X-Ray 11/12/18 00:00 IMPRESSION: LINEAR METALLIC FOREIGN OBJECT IN THE SOFT TISSUES OF THE DISTAL THUMB. NO CHANGE PER Assessment & Plan - Diagnosis (1) Abscess of right hand Is this a current diagnosis for this admission?: Yes Plan: She continues on IV Ancef now we plan to send her home on Keflex. I switched her micafungin to Diflucan because there is a 7-18% reported incidence of nausea and vomiting with this medication. When she ultimately leaves the hospital, she will follow-up with orthopedics as an outpatient. (2) Nausea and vomiting Qualifiers: Vomiting type: unspecified Vomiting Intractability: non-intractable Qualified Code(s): R11.2 - Nausea with vomiting, unspecified Is this a current diagnosis for this admission?: Yes Plan: I made the change in her antifungal medication for the reasons noted above. Al so, she is been taking a lot of Dilaudid, and it seems like the day she did the best was the day she did not take any Dilaudid. She started taken Dilaudid again yesterday and her nausea came back. I have discontinued that altogether. I have put an order for some Toradol for pain if she needs something. We will see how she responds to these changes. - Time Time Spent with patient: 25-34 minutes
--- NOTE | 2018-11-21 17:47 | PDOC PROGRESS REPORT ---
Subjective Subjective:: Patient states numbness tingling and pain have been improving since second surgery as well. Denies fever chills or sweats. Reason For Visit: SEPSIS,RIGHT HAND WOUND INFECTION,HYPONATREMIA Physical Exam Vital Signs: Temp Pulse Resp BP Pulse Ox 98.5 F 90 18 140/71 H 97 11/21/18 16:00 11/21/18 16:00 11/21/18 16:00 11/21/18 16:00 11/21/18 16:00 Intake & Output 11/20/18 11/21/18 11/22/18 06:59 06:59 06:59 Intake Total 1430 4688 1300 Output Total 600 Balance 1430 4088 1300 Weight 54.1 kg 55.3 kg Musculoskeletal exam: PRESENT: other - Right hand: Open wound along the mid palm and thenar eminence. No evidence of active drainage. No evidence of necrosis. Exposed tendon and nerve noted. Results Laboratory Results: 11/21/18 13:22 11/21/18 13:22 11/21/18 11/21/18 13:22 13:22 WBC 14.5 H RBC 3.44 L Hgb 9.6 L Hct 29.6 L MCV 86 MCH 28.0 MCHC 32.5 RDW 14.4 H Plt Count 661 H Sodium 131.3 L Potassium 3.6 Chloride 93 L Carbon Dioxide 30 Anion Gap 8 BUN 12 Creatinine 0.86 Est GFR ( Amer) > 60 Est GFR (Non-Af Amer) > 60 Glucose 213 H Calcium 7.9 L Phosphorus 3.1 Magnesium 1.4 L Total Bilirubin 0.2 AST 9 L ALT 11 Alkaline Phosphatase 114 Total Protein 5.2 L Albumin 2.4 L 11/17/18 19:07 Hand - Right Gram Stain - Final 11/17/18 19:07 Hand - Right Wound Culture - Final C.albicans/C.dubliniensis No Anaerobic Organisms 11/04/18 11/07/18 12:32 13:47 Creatine Kinase 70 Troponin I 0.014 Impressions: Forearm X-Ray 11/04/18 10:50 IMPRESSION: Diffuse soft tissue swelling about the right thumb. There is a radiodense metallic fragment such as a needle or wire present in the pad of the right thumb. No evidence of subcutaneous emphysema; CT is more sensitive for the evaluation of subcutaneous emphysema. MRI is more sensitive for the evaluation of marrow edema and osteomyelitis. Hand X-Ray 11/04/18 10:50 IMPRESSION: Diffuse soft tissue swelling about the right thumb. There is a radiodense metallic fragment such as a needle or wire present in the pad of the right thumb. No evidence of subcutaneous emphysema; CT is more sensitive for the evaluation of subcutaneous emphysema. MRI is more sensitive for the evaluation of marrow edema and osteomyelitis. Upper Extremity CT 11/05/18 00:00 IMPRESSION: 1. LINEAR METALLIC FOREIGN OBJECT IN THE SOFT TISSUES OF THE PAD OF THE DISTAL THUMB. 2. SKIN DEFECT IN THE PALM WITH EXTENSIVE GAS EXTENDING INTO THE PALMAR SOFT TISSUES SUSPICIOUS FOR INFECTION. NO FLUID COLLECTION OR DRAINABLE ABSCESS. 3. NO SIGNIFICANT BONY FINDINGS. Finger X-Ray 11/12/18 00:00 IMPRESSION: LINEAR METALLIC FOREIGN OBJECT IN THE SOFT TISSUES OF THE DISTAL THUMB. NO CHANGE PER Assessment & Plan - Diagnosis (1) Infection of right hand Is this a current diagnosis for this admission?: Yes Plan: Postop day 4 status post repeat irrigation and debridement right hand Clinically patient feels as though she is improving although she continues to have elevated white count. There is open wound along the thenar eminence and mid palm I feel ultimately patient will require repeat operative intervention for closure otherwise exposed nerve and tendon are concerning of possible persistent infection. We will continue to monitor.
[2018-11-21] MEDS: INSULIN LISPRO 100 UNIT/ML 3 ML VIAL SUBCUT PRN (21:35)
[2018-11-22] MEDS: ONDANSETRON HCL INJ/PF 4 MG/2 ML SDV IV PRN (02:17)
[2018-11-22] MEDS: RINGERS SOLUTION,LACTATED 1,000 ML IV PRN ×3 (02:22→23:59)
[2018-11-22] MEDS ORDERED: CHLORPROMAZINE HCL INJ 25 MG/1 ML AMPULE ONE (03:46)
[2018-11-22] MEDS: CHLORPROMAZINE HCL INJ 25 MG/1 ML AMPULE IV PRN ×3 (04:25→18:25)
[2018-11-22] MEDS: GABAPENTIN 100 MG CAPSULE PO SCH ×2 (05:52→14:07)
[2018-11-22] MEDS: CEFAZOLIN SODIUM 2 GM in DEXTROSE 5%-WATER 100 ML IV SCH ×3 (05:52→21:27)
[2018-11-22 07:21] LABS: ABSOLUTE BASOPHILS # (AUTO) 0.1 10^3/uL (0.0-0.2); ABSOLUTE LYMPHOCYTES (AUTO) 1.1 10^3/uL (0.5-4.7); ABSOLUTE MONOCYTES (AUTO) 0.8 10^3/uL (0.1-1.4); ABSOLUTE NEUT (AUTO) 14.9 10^3/uL (1.7-8.2); BASOPHILS % (AUTO) 0.3 % (0-2); EOSINOPHILS % (AUTO) 0.2 % (0-6); HEMATOCRIT 26.4 % (36.0-47.0); HEMOGLOBIN 8.7 g/dL (12.0-15.5); LYMPHOCYTES % (AUTO) 6.6 % (13-45); MEAN CORPUSCULAR HEMOGLOBIN 28.4 pg (27.0-33.4); MEAN CORPUSCULAR VOLUME 86 fl (80-97); PLATELET COUNT 569 10^3/uL (150-450); RED BLOOD COUNT 3.07 10^6/uL (3.72-5.28); SEGMENTED NEUTROPHILS % (AUTO) 87.9 % (42-78); TOTAL CELLS COUNTED % (AUTO) 100 %
[2018-11-22] MEDS: FLUCONAZOLE 200 MG/NS RTU 200 MG/100 ML RTUPB IV SCH (09:29)
[2018-11-22] MEDS: FAMOTIDINE 20 MG TABLET PO SCH (09:29)
[2018-11-22] MEDS: ASPIRIN 81 MG TABLET, ENT COATED PO SCH (09:29)
[2018-11-22] MEDS: DOCUSATE SODIUM 100 MG CAPSULE PO SCH (09:29)
[2018-11-22] MEDS: PANTOPRAZOLE SODIUM 40 MG VIAL IV SCH ×2 (11:24→21:26)
[2018-11-22 11:38] LABS: ABSOLUTE BASOPHILS # (AUTO) 0.1 10^3/uL (0.0-0.2); ABSOLUTE LYMPHOCYTES (AUTO) 1.2 10^3/uL (0.5-4.7); ABSOLUTE MONOCYTES (AUTO) 0.8 10^3/uL (0.1-1.4); ABSOLUTE NEUT (AUTO) 13.6 10^3/uL (1.7-8.2); BASOPHILS % (AUTO) 0.7 % (0-2); EOSINOPHILS % (AUTO) 0.3 % (0-6); HEMATOCRIT 26.7 % (36.0-47.0); HEMOGLOBIN 8.9 g/dL (12.0-15.5); LYMPHOCYTES % (AUTO) 7.8 % (13-45); MEAN CORPUSCULAR HEMOGLOBIN 28.6 pg (27.0-33.4); MEAN CORPUSCULAR HGB CONC 33.4 g/dL (32.0-36.0); MEAN CORPUSCULAR VOLUME 86 fl (80-97); PLATELET COUNT 577 10^3/uL (150-450); RED BLOOD COUNT 3.11 10^6/uL (3.72-5.28); RED CELL DISTRIBUTION WIDTH 14.2 % (11.5-14.0); SEGMENTED NEUTROPHILS % (AUTO) 86.2 % (42-78); TOTAL CELLS COUNTED % (AUTO) 100 %; WHITE BLOOD COUNT 15.7 10^3/uL (4.0-10.5)
[2018-11-22] MEDS: INSULIN LISPRO 100 UNIT/ML 3 ML VIAL SUBCUT PRN (12:23)
--- NOTE | 2018-11-22 13:16 | RADIOLOGY REPORT (SQ) ---
EXAM DESCRIPTION: KUB/ABDOMEN (SINGLE VIEW) COMPLETED DATE/TIME: 11/22/2018 12:43 pm REASON FOR STUDY: persistent N/V COMPARISON: None. NUMBER OF VIEWS: One view. TECHNIQUE: Supine radiographic image of the abdomen acquired. LIMITATIONS: None. FINDINGS: BOWEL GAS PATTERN: Marked gaseous distention of the stomach. No air-fluid levels in colon or small bowel. CALCIFICATIONS: No suspicious calcifications. SOFT TISSUES: Massive enlargement of the urinary bladder, worrisome for urinary retention HARDWARE: Clips right upper quadrant post cholecystectomy. BONES: No acute fracture. No worrisome bone lesions. OTHER: No other significant finding. IMPRESSION: Marked gaseous distention of the stomach. Suspect urinary retention with distended urinary bladder TECHNICAL DOCUMENTATION: JOB ID: [id number] [employer]- All Rights Reserved Reading location - IP/workstation name: [email or web address]
[2018-11-22] MEDS: PROCHLORPERAZINE EDISYLATE INJ 10 MG/2 ML VIAL IV PRN (14:41)
[2018-11-22] MEDS ORDERED: PHARMACY COMMUNICATION ORDER MC NR (17:45)
--- NOTE | 2018-11-22 18:32 | PDOC PROGRESS REPORT ---
Subjective Progress Note for:: 11/22/18 Subjective:: She is remained nauseated today. She is vomited up a couple of times in small amounts. She is been afebrile. Her blood pressure started to go down this afternoon. Her urine output also decreased some. Reason For Visit: SEPSIS,RIGHT HAND WOUND INFECTION,HYPONATREMIA Physical Exam Vital Signs: Temp Pulse Resp BP Pulse Ox 98.9 F 102 H 18 92/33 L 93 11/22/18 16:00 11/22/18 16:00 11/22/18 16:00 11/22/18 16:00 11/22/18 16:00 Intake & Output 11/21/18 11/22/18 11/23/18 06:59 06:59 06:59 Intake Total 4688 3670 1560 Output Total 600 350 300 Balance 4088 3320 1260 Weight 55.3 kg 55.3 kg General appearance: PRESENT: Mild distress, cooperative, disheveled, looks fatigued Respiratory exam: PRESENT: clear to auscultation marce, symmetrical, unlabored. ABSENT: accessory muscle use, crackles, prolonged expiratory phas, rhonchi, tachypnea, wheezes Cardiovascular exam: PRESENT: RRR, +S1, +S2 Vascular exam: PRESENT: normal capillary refill GI/Abdominal exam: PRESENT: Distended, hypoactive bowel sounds, soft. ABSENT: guarding, rebound, tenderness Extremities exam: PRESENT: other - She had bilateral AKA's. Her right hand was covered in a heavy bandage Musculoskeletal exam: PRESENT: tenderness - Right hand Neurological exam: PRESENT: Drowsy but arousable, oriented to person, oriented to place, oriented to time, oriented to situation Psychiatric exam: PRESENT: appropriate affect, normal mood Skin exam: PRESENT: dry, warm Results Laboratory Results: 11/22/18 10:57 11/21/18 13:22 11/22/18 11/22/18 06:48 10:57 WBC 17.0 H 15.7 H RBC 3.07 L 3.11 L Hgb 8.7 L 8.9 L Hct 26.4 L 26.7 L MCV 86 86 MCH 28.4 28.6 MCHC 33.0 33.4 RDW 14.0 14.2 H Plt Count 569 H 577 H Seg Neutrophils % 87.9 H 86.2 H Lymphocytes % 6.6 L 7.8 L Monocytes % 5.0 5.0 Eosinophils % 0.2 0.3 Basophils % 0.3 0.7 Absolute Neutrophils 14.9 H 13.6 H Absolute Lymphocytes 1.1 1.2 Absolute Monocytes 0.8 0.8 Absolute Eosinophils 0.0 0.0 Absolute Basophils 0.1 0.1 11/04/18 11/07/18 12:32 13:47 Creatine Kinase 70 Troponin I 0.014 Impressions: Forearm X-Ray 11/04/18 10:50 IMPRESSION: Diffuse soft tissue swelling about the right thumb. There is a radiodense metallic fragment such as a needle or wire present in the pad of the right thumb. No evidence of subcutaneous emphysema; CT is more sensitive for the evaluation of subcutaneous emphysema. MRI is more sensitive for the evaluation of marrow edema and osteomyelitis. Hand X-Ray 11/04/18 10:50 IMPRESSION: Diffuse soft tissue swelling about the right thumb. There is a radiodense metallic fragment such as a needle or wire present in the pad of the right thumb. No evidence of subcutaneous emphysema; CT is more sensitive for the evaluation of subcutaneous emphysema. MRI is more sensitive for the evaluation of marrow edema and osteomyelitis. Upper Extremity CT 11/05/18 00:00 IMPRESSION: 1. LINEAR METALLIC FOREIGN OBJECT IN THE SOFT TISSUES OF THE PAD OF THE DISTAL THUMB. 2. SKIN DEFECT IN THE PALM WITH EXTENSIVE GAS EXTENDING INTO THE PALMAR SOFT TISSUES SUSPICIOUS FOR INFECTION. NO FLUID COLLECTION OR DRAINABLE ABSCESS. 3. NO SIGNIFICANT BONY FINDINGS. Finger X-Ray 11/12/18 00:00 IMPRESSION: LINEAR METALLIC FOREIGN OBJECT IN THE SOFT TISSUES OF THE DISTAL TH UMB. NO CHANGE PER Assessment & Plan - Diagnosis (1) Abscess of right hand Is this a current diagnosis for this admission?: Yes Plan: She continues on IV Ancef now we plan to send her home on Keflex. I switched her micafungin to Diflucan because there is a 7-18% reported incidence of nausea and vomiting with this medication. When she ultimately leaves the hospital, she will follow-up with orthopedics as an outpatient. There is the possibility of another I&D. (2) Nausea and vomiting Qualifiers: Vomiting type: unspecified Vomiting Intractability: non-intractable Qualified Code(s): R11.2 - Nausea with vomiting, unspecified Is this a current diagnosis for this admission?: Yes Plan: I made the change in her antifungal medication for the reasons noted above. Also, she is been taking a lot of Dilaudid, and it seems like the day she did the best was the day she did not take any Dilaudid. I have discontinued that altogether. I have put an order for some Toradol for pain if she needs something. Her stomach was distended and her small bowel was decompressed on plain film. She also had a distended bladder. Were putting an NG tube and a Kelly catheter in. Once her abdomen is decompressed and she is feeling better, we will get a CT scan of the abdomen and pelvis with oral and IV contrast. - Time Time Spent with patient: 25-34 minutes
--- NOTE | 2018-11-22 18:34 | RADIOLOGY REPORT (SQ) ---
EXAM DESCRIPTION: KUB/ABDOMEN (SINGLE VIEW) COMPLETED DATE/TIME: 11/22/2018 6:21 pm REASON FOR STUDY: Check Placement of NG Tube COMPARISON: 11/22/2018 1229 hours NUMBER OF VIEWS: One view. TECHNIQUE: Supine radiographic image of the abdomen acquired. LIMITATIONS: None. FINDINGS: BOWEL GAS PATTERN: Mild decompression of the stomach status post nasogastric tube placemen t. CALCIFICATIONS: No suspicious calcifications. SOFT TISSUES: No gross mass or suggestion of organomegaly. HARDWARE: Nasogastric tube tip in the stomach. BONES: No acute fracture. No worrisome bone lesions. OTHER: No other significant finding. IMPRESSION: Mild decompression of the gastric air status post nasogastric tube placement. TECHNICAL DOCUMENTATION: JOB ID: [id number] [employer]- All Rights Reserved Reading location - IP/workstation name: [email or web address]
[2018-11-22] MEDS ORDERED: DEXTROSE 40% GEL 15 GM TUBE NG PRN ×2 (19:30)
[2018-11-22] MEDS: GABAPENTIN 100 MG CAPSULE NG SCH (21:27)
[2018-11-22] MEDS: FAMOTIDINE 20 MG TABLET NG SCH (21:27)
[2018-11-23 04:12] LABS: APPEARANCE,URINE TURBID; BILIRUBIN,URINE NEGATIVE (NEGATIVE); COLOR,URINE YELLOW; GLUCOSE, URINE >=500 mg/dL (NEGATIVE); KETONES,URINE 20 mg/dL (NEGATIVE); LEUKOCYTE ESTERASE,URINE MODERATE (NEGATIVE); NITRITE,URINE NEGATIVE (NEGATIVE); PROTEIN,URINE >=500 mg/dL (NEGATIVE); URINE SPECIFIC GRAVITY 1.014; UROBILINOGEN,URINE NEGATIVE mg/dL (<2.0)
[2018-11-23 04:53] LABS: ABSOLUTE BASOPHILS # (AUTO) 0.1 10^3/uL (0.0-0.2); ABSOLUTE LYMPHOCYTES (AUTO) 1.4 10^3/uL (0.5-4.7); ABSOLUTE MONOCYTES (AUTO) 0.9 10^3/uL (0.1-1.4); ABSOLUTE NEUT (AUTO) 14.3 10^3/uL (1.7-8.2); BASOPHILS % (AUTO) 0.8 % (0-2); EOSINOPHILS % (AUTO) 0.2 % (0-6); HEMATOCRIT 23.6 % (36.0-47.0); LYMPHOCYTES % (AUTO) 8.4 % (13-45); MEAN CORPUSCULAR HEMOGLOBIN 28.1 pg (27.0-33.4); MEAN CORPUSCULAR HGB CONC 32.9 g/dL (32.0-36.0); MEAN CORPUSCULAR VOLUME 85 fl (80-97); MONOCYTES % (AUTO) 5.2 % (3-13); PLATELET COUNT 513 10^3/uL (150-450); RED BLOOD COUNT 2.77 10^6/uL (3.72-5.28); RED CELL DISTRIBUTION WIDTH 14.3 % (11.5-14.0); SEGMENTED NEUTROPHILS % (AUTO) 85.4 % (42-78); TOTAL CELLS COUNTED % (AUTO) 100 %; WHITE BLOOD COUNT 16.8 10^3/uL (4.0-10.5)
[2018-11-23 04:57] LABS: HEMOGLOBIN 7.8 g/dL (12.0-15.5)
[2018-11-23 05:14] LABS: ANION GAP 6 (5-19); BLOOD UREA NITROGEN 10 mg/dL (7-20); CALCIUM 7.6 mg/dL (8.4-10.2); CARBON DIOXIDE 30 mmol/L (22-30); CHLORIDE 96 mmol/L (98-107); GLUCOSE 172 mg/dL (75-110); POTASSIUM 3.3 mmol/L (3.6-5.0); SODIUM 132.2 mmol/L (137-145)
[2018-11-23] MEDS: CEFAZOLIN SODIUM 2 GM in DEXTROSE 5%-WATER 100 ML IV SCH ×3 (05:24→22:09)
[2018-11-23] MEDS: GABAPENTIN 100 MG CAPSULE NG SCH ×3 (05:25→22:09)
[2018-11-23] MEDS ORDERED: ACETAMINOPHEN SOLN 325 MG/10.15 ML UDCUP NG PRN (06:41)
[2018-11-23] MEDS ORDERED: DIPHENHYDRAMINE HCL 50 MG/ML VIAL IV PRN (06:42)
[2018-11-23] MEDS ORDERED: DIPHENHYDRAMINE HCL 50 MG/ML VIAL ONE (06:43)
[2018-11-23] MEDS: ACETAMINOPHEN 325 MG TABLET NG PRN ×2 (06:47→15:20)
[2018-11-23] MEDS: FAMOTIDINE 20 MG TABLET NG SCH ×2 (10:20→22:09)
[2018-11-23] MEDS: PANTOPRAZOLE SODIUM 40 MG VIAL IV SCH ×2 (10:20→22:09)
[2018-11-23] MEDS: FLUCONAZOLE 200 MG/NS RTU 200 MG/100 ML RTUPB IV SCH (10:20)
[2018-11-23] MEDS ORDERED: POTASSI CL 20 MEQ/50 ML RIDER 20 MEQ/50 ML RTUPB IV ONE (10:27)
[2018-11-23] MEDS: ASPIRIN 81 MG TABLET, CHEWABLE NG SCH (10:44)
[2018-11-23] MEDS: DOCUSATE SODIUM 100 MG/10 ML UDC NG SCH (10:44)
[2018-11-23] MEDS ORDERED: NORMAL SALINE 1000 ML 1,000 ML IV PRN (10:54)
[2018-11-23 12:42] LABS: ABSOLUTE BASOPHILS # (AUTO) 0.1 10^3/uL (0.0-0.2); ABSOLUTE LYMPHOCYTES (AUTO) 1.3 10^3/uL (0.5-4.7); ABSOLUTE MONOCYTES (AUTO) 0.7 10^3/uL (0.1-1.4); ABSOLUTE NEUT (AUTO) 13.5 10^3/uL (1.7-8.2); BASOPHILS % (AUTO) 0.7 % (0-2); EOSINOPHILS % (AUTO) 0.2 % (0-6); HEMATOCRIT 28.3 % (36.0-47.0); HEMOGLOBIN 9.4 g/dL (12.0-15.5); LYMPHOCYTES % (AUTO) 8.6 % (13-45); MEAN CORPUSCULAR HEMOGLOBIN 28.5 pg (27.0-33.4); MEAN CORPUSCULAR HGB CONC 33.2 g/dL (32.0-36.0); MEAN CORPUSCULAR VOLUME 86 fl (80-97); MONOCYTES % (AUTO) 4.5 % (3-13); PLATELET COUNT 497 10^3/uL (150-450); RED BLOOD COUNT 3.29 10^6/uL (3.72-5.28); RED CELL DISTRIBUTION WIDTH 14.2 % (11.5-14.0); TOTAL CELLS COUNTED % (AUTO) 100 %; WHITE BLOOD COUNT 15.7 10^3/uL (4.0-10.5)
--- NOTE | 2018-11-23 15:12 | RADIOLOGY REPORT (SQ) ---
EXAM DESCRIPTION: CT ABD/PELVIS WITH IV ORAL COMPLETED DATE/TIME: 11/23/2018 1:55 pm REASON FOR STUDY: gastric distension, possible outlet obstruction COMPARISON: Abdominal films 11/22/2018 TECHNIQUE: CT scan of the abdomen and pelvis performed using helical scanning technique with dynamic intravenous contrast injection. Oral contrast given through the nasogastric tube. Images reviewed w ith lung, soft tissue, and bone windows. Reconstructed coronal and sagittal MPR images reviewed. Kandace tejeda images for evaluation of the urinary system also acquired. All images stored on PACS. All CT scanners at this facility use dose modulation, iterative reconstruction, and/or weight based d osing when appropriate to reduce radiation dose to as low as reasonably achievable (ALARA). [facility]: Dose Right [facility]: CareDose [facility]: Dose Right [facility]: Teradose 4D [facility]: [employer] CONTRAST TYPE AND DOSE: contrast/concentration: Isovue 350.00 mg/ml; Total Contrast Delivered: 63.0 ml; Total Saline Delivered: 34.1 ml RENAL FUNCTION: Creatinine 0.8 RADIATION DOSE: CT Rad equipment meets quality standard of care and radiation dose reduction techniq ues were employed. CTDIvol: 7.6 - 11.0 mGy. DLP: 1107 mGy-cm.. LIMITATIONS: None. FINDINGS: LOWER CHEST: Small bilateral pleural effusions are present with bibasilar airspace disease , atelectasis versus pneumonia. Very heavily calcified coronary arteries. LIVER: Normal size. No masses. No dilated ducts. SPLEEN: Normal size. No focal lesions. PANCREAS: No masses. No significant calcifications. No adjacent inflammation or peripancreatic fluid collections. Pancreatic duct not dilated. GALLBLADDER: Surgically absent ADRENAL GLANDS: No significant masses or asymmetry. RIGHT KIDNEY AND URETER: No solid masses. No significant calcifications. No hydronephrosis or hyd roureter. LEFT KIDNEY AND URETER: No solid masses. No significant calcifications. No hydronephrosis or hydr oureter. AORTA AND VESSELS: No aneurysm. No dissection. Renal arteries, SMA, celiac without stenosis. RETROPERITONEUM: No retroperitoneal adenopathy, hemorrhage or masses. BOWEL AND PERITONEAL CAVITY: Oral contrast was administered through the patient's nasogastric tube. Mild distention of the stomach without CT evidence of gastric outlet obstruction. Oral contrast is s een throughout the duodenum jejunum and ileum without small bowel obstruction. Colon decompressed. There is a small amount of free intraperitoneal fluid. No free intraperitoneal air. APPENDIX: Surgically absent PELVIS: No mass. Trace cul-de-sac free fluid. Bladder decompressed by Kelly catheter. Post hystere ctomy ABDOMINAL WALL: Third-spacing with edema along the abdominal wall BONES: No significant or acute findings. OTHER: No other significant finding. IMPRESSION: Small bilateral pleural effusions are present with bilateral lower lobe airspace disease . Small amount of ascites. Oral contrast is seen throughout the stomach and small bowel without evidence of gastric outlet obstr uction or small bowel obstruction. TECHNICAL DOCUMENTATION: JOB ID: [id number] Quality ID # [id number]: Final reports with documentation of one or more dose reduction techniques (e.g., Au tomated exposure control, adjustment of the mA and/or kV according to patient size, use of iterative reconstruction technique) 2010 [employer]- All Rights Reserved Reading location - IP/workstation name: [email or web address]
--- NOTE | 2018-11-23 15:15 | PDOC PROGRESS REPORT ---
Subjective Progress Note for:: 11/23/18 Subjective:: Patient currently has an NG tube due to coffee-ground emesis and being worked up for GI bleed. Reason For Visit: SEPSIS,RIGHT HAND WOUND INFECTION,HYPONATREMIA Physical Exam Vital Signs: Temp Pulse Resp BP Pulse Ox 37.2 C 101 H 18 123/51 L 96 11/23/18 10:07 11/23/18 14:00 11/23/18 10:07 11/23/18 10:07 11/23/18 10:07 Intake & Output 11/22/18 11/23/18 11/24/18 06:59 06:59 06:59 Intake Total 3670 2760 1600 Output Total 350 2850 Balance 3320 -90 1600 Weight 55.3 kg 55.3 kg Front of Hands Image: 1 - Dressing is on. Swelling is slightly improved. No erythema in the digits. Still has difficulty extending second to tightness and stiffness. Results Laboratory Results: 11/23/18 12:32 11/23/18 04:31 11/23/18 11/23/18 11/23/18 03:40 04:31 04:31 WBC 16.8 H RBC 2.77 L Hgb 7.8 L Hct 23.6 L MCV 85 MCH 28.1 MCHC 32.9 RDW 14.3 H Plt Count 513 H Seg Neutrophils % 85.4 H Lymphocytes % 8.4 L Monocytes % 5.2 Eosinophils % 0.2 Basophils % 0.8 Absolute Neutrophils 14.3 H Absolute Lymphocytes 1.4 Absolute Monocytes 0.9 Absolute Eosinophils 0.0 Absolute Basophils 0.1 Sodium 132.2 L Potassium 3.3 L Chloride 96 L Carbon Dioxide 30 Anion Gap 6 BUN 10 Creatinine 0.75 Est GFR ( Amer) > 60 Est GFR (Non-Af Amer) > 60 Glucose 172 H Lactic Acid Calcium 7.6 L Magnesium Urine Color YELLOW Urine Appearance TURBID Urine pH 5.0 Ur Specific [place] 1.014 Urine Protein >=500 H Urine Glucose (UA) >=500 H Urine Ketones 20 H Urine Blood LARGE H Urine Nitrite NEGATIVE Ur Leukocyte Esterase MODERATE H Urine WBC (Auto) >182 Urine RBC (Auto) 25 Blood Type Antibody Screen 11/23/18 11/23/18 11/23/18 04:31 04:31 05:20 WBC RBC Hgb Hct MCV MCH MCHC RDW Plt Count Seg Neutrophils % Lymphocytes % Monocytes % Eosinophils % Basophils % Absolute Neutrophils Absolute Lymphocytes Absolute Monocytes Absolute Eosinophils Absolute Basophils Sodium Potassium Chloride Carbon Dioxide Anion Gap BUN Creatinine Est GFR ( Amer) Est GFR (Non-Af Amer) Glucose Lactic Acid 0.6 L Calcium Magnesium 1.4 L Urine Color Urine Appearance Urine pH Ur Specific [place] Urine Protein Urine Glucose (UA) Urine Ketones Urine Blood Urine Nitrite Ur Leukocyte Esterase Urine WBC (Auto) Urine RBC (Auto) Blood Type O POSITIVE Antibody Screen NEGATIVE 11/23/18 12:32 WBC 15.7 H RBC 3.29 L Hgb 9.4 L Hct 28.3 L MCV 86 MCH 28.5 MCHC 33.2 RDW 14.2 H Plt Count 497 H Seg Neutrophils % 86.0 H Lymphocytes % 8.6 L Monocytes % 4.5 Eosinophils % 0.2 Basophils % 0.7 Absolute Neutrophils 13.5 H Absolute Lymphocytes 1.3 Absolute Monocytes 0.7 Absolute Eosinophils 0.0 Absolute Basophils 0.1 Sodium Potassium Chloride Carbon Dioxide Anion Gap BUN Creatinine Est GFR ( Amer) Est GFR (Non-Af Amer) Glucose Lactic Acid Calcium Magnesium Urine Color Urine Appearance Urine pH Ur Specific [place] Urine Protein Urine Glucose (UA) Urine Ketones Urine Blood Urine Nitrite Ur Leukocyte Esterase Urine WBC (Auto) Urine RBC (Auto) Blood Type Antibody Screen 11/04/18 11/07/18 12:32 13:47 Creatine Kinase 70 Troponin I 0.014 Impressions: Forearm X-Ray 11/04/18 10:50 IMPRESSION: Diffuse soft tissue swelling about the right thumb. There is a radiodense metallic fragment such as a needle or wire present in the pad of the right thumb. No evidence of subcutaneous emphysema; CT is more sensitive for the evaluation of subcutaneous emphysema. MRI is more sensitive for the evaluation of marrow edema and osteomyelitis. Hand X-Ray 11/04/18 10:50 IMPRESSION: Diffuse soft tissue swelling about the right thumb. There is a radiodense metallic fragment such as a needle or wire present in the pad of the right thumb. No evidence of subcutaneous emphysema; CT is more sensitive for the evaluation of subcutaneous emphysema. MRI is more sensitive for the evaluation of marrow edema and osteomyelitis. Upper Extremity CT 11/05/18 00:00 IMPRESSION: 1. LINEAR METALLIC FOREIGN OBJECT IN THE SOFT TISSUES OF THE PAD OF THE DISTAL THUMB. 2. SKIN DEFECT IN THE PALM WITH EXTENSIVE GAS EXTENDING INTO THE PALMAR SOFT TISSUES SUSPICIOUS FOR INFECTION. NO FLUID COLLECTION OR DRAINABLE ABSCESS. 3. NO SIGNIFICANT BONY FINDINGS. Finger X-Ray 11/12/18 00:00 IMPRESSION: LINEAR METALLIC FOREIGN OBJECT IN THE SOFT TISSUES OF THE DISTAL THUMB. NO CHANGE PER KUB X-Ray 11/22/18 17:41 IMPRESSION: Mild decompression of the gastric air status post nasogastric tube placement. Abdomen/Pelvis CT 11/23/18 00:00 IMPRESSION: Small bilateral pleural effusions are present with bilateral lower lobe airspace disease. Small amount of ascites. Oral contrast is seen throughout the stomach and small bowel without evidence of gastric outlet obstruction or small bowel obstruction. Assessment & Plan - Diagnosis (1) Infection of right hand Is this a current diagnosis for this admission?: Yes - Plan Summary Plan Summary: 62-year-old diabetic with necrosis and infection of the right hand has been irrigated and debrided twice. Discussed with the family likely need for third I&D and partial closure of her hand with even potential application of a wound VAC if necessary. Right now due to her GI bleed and workup this will have to wait. We will see if in the beginning of this week if everything stabilizes we can put on the schedule.
--- NOTE | 2018-11-23 17:02 | PDOC PROGRESS REPORT ---
Subjective Progress Note for:: 11/23/18 Subjective:: No adverse events overnight. She feels better after NG tube decompression. She had a Kelly catheter placed last night. 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 Her blood pressures improved after decompressing her belly and her urinary bladder. She says she feels better today. Reason For Visit: SEPSIS,RIGHT HAND WOUND INFECTION,HYPONATREMIA Physical Exam Vital Signs: Temp Pulse Resp BP Pulse Ox 98.9 F 101 H 18 123/51 L 96 11/23/18 10:07 11/23/18 14:00 11/23/18 10:07 11/23/18 10:07 11/23/18 10:07 Intake & Output 11/22/18 11/23/18 11/24/18 06:59 06:59 06:59 Intake Total 3670 2760 1600 Output Total 350 2850 Balance 3320 -90 1600 Weight 55.3 kg 55.3 kg General appearance: PRESENT: no acute distress, cooperative, disheveled, more interactive today Respiratory exam: PRESENT: clear to auscultation marce, symmetrical, unlabored. ABSENT: accessory muscle use, crackles, prolonged expiratory phas, rhonchi, tachypnea, wheezes Cardiovascular exam: PRESENT: RRR, +S1, +S2 Vascular exam: PRESENT: normal capillary refill GI/Abdominal exam: PRESENT: Hypoactive bowel sounds, soft. ABSENT: distended, guarding, rebound, tenderness Extremities exam: PRESENT: other - She had bilateral AKA's. Her right hand was covered in a heavy bandage Musculoskeletal exam: PRESENT: tenderness - Right hand Neurological exam: PRESENT: Drowsy but arousable, oriented to person, oriented to place, oriented to time, oriented to situation Psychiatric exam: PRESENT: appropriate affect, normal mood Skin exam: PRESENT: dry, warm Results Laboratory Results: 11/23/18 12:32 11/23/18 04:31 11/23/18 11/23/18 11/23/18 03:40 04:31 04:31 WBC 16.8 H RBC 2.77 L Hgb 7.8 L Hct 23.6 L MCV 85 MCH 28.1 MCHC 32.9 RDW 14.3 H Plt Count 513 H Seg Neutrophils % 85.4 H Lymphocytes % 8.4 L Monocytes % 5.2 Eosinophils % 0.2 Basophils % 0.8 Absolute Neutrophils 14.3 H Absolute Lymphocytes 1.4 Absolute Monocytes 0.9 Absolute Eosinophils 0.0 Absolute Basophils 0.1 Sodium 132.2 L Potassium 3.3 L Chloride 96 L Carbon Dioxide 30 Anion Gap 6 BUN 10 Creatinine 0.75 Est GFR ( Amer) > 60 Est GFR (Non-Af Amer) > 60 Glucose 172 H Lactic Acid Calcium 7.6 L Magnesium Urine Color YELLOW Urine Appearance TURBID Urine pH 5.0 Ur Specific [place] 1.014 Urine Protein >=500 H Urine Glucose (UA) >=500 H Urine Ketones 20 H Urine Blood LARGE H Urine Nitrite NEGATIVE Ur Leukocyte Esterase MODERATE H Urine WBC (Auto) >182 Urine RBC (Auto) 25 Blood Type Antibody Screen 11/23/18 11/23/18 11/23/18 04:31 04:31 05:20 WBC RBC Hgb Hct MCV MCH MCHC RDW Plt Count Seg Neutrophils % Lymphocytes % Monocytes % Eosinophils % Basophils % Absolute Neutrophils Absolute Lymphocytes Absolute Monocytes Absolute Eosinophils Absolute Basophils Sodium Potassium Chloride Carbon Dioxide Anion Gap BUN Creatinine Est GFR ( Amer) Est GFR (Non-Af Amer) Glucose Lactic Acid 0.6 L Calcium Magnesium 1.4 L Urine Color Urine Appearance Urine pH Ur Specific [place] Urine Protein Urine Glucose (UA) Urine Ketones Urine Blood Urine Nitrite Ur Leukocyte Esterase Urine WBC (Auto) Urine RBC (Auto) Blood Type O POSITIVE Antibody Screen NEGATIVE 11/23/18 12:32 WBC 15.7 H RBC 3.29 L Hgb 9.4 L Hct 28.3 L MCV 86 MCH 28.5 MCHC 33.2 RDW 14.2 H Plt Count 497 H Seg Neutrophils % 86.0 H Lymphocytes % 8.6 L Monocytes % 4.5 Eosinophils % 0.2 Basophils % 0.7 Absolute Neutrophils 13.5 H Absolute Lymphocytes 1.3 Absolute Monocytes 0.7 Absolute Eosinophils 0.0 Absolute Basophils 0.1 Sodium Potassium Chloride Carbon Dioxide Anion Gap BUN Creatinine Est GFR ( Amer) Est GFR (Non-Af Amer) Glucose Lactic Acid Calcium Magnesium Urine Color Urine Appearance Urine pH Ur Specific [place] Urine Protein Urine Glucose (UA) Urine Ketones Urine Blood Urine Nitrite Ur Leukocyte Esterase Urine WBC (Auto) Urine RBC (Auto) Blood Type Antibody Screen 11/04/18 11/07/18 12:32 13:47 Creatine Kinase 70 Troponin I 0.014 Impressions: Forearm X-Ray 11/04/18 10:50 IMPRESSION: Diffuse soft tissue swelling about the right thumb. There is a radiodense metallic fragment such as a needle or wire present in the pad of the right thumb. No evidence of subcutaneous emphysema; CT is more sensitive for the evaluation of subcutaneous emphysema. MRI is more sensitive for the evaluation of marrow edema and osteomyelitis. Hand X-Ray 11/04/18 10:50 IMPRESSION: Diffuse soft tissue swelling about the right thumb. There is a radiodense metallic fragment such as a needle or wire present in the pad of the right thumb. No evidence of subcutaneous emphysema; CT is more sensitive for the evaluation of subcutaneous emphysema. MRI is more sensitive for the evaluation of marrow edema and osteomyelitis. Upper Extremity CT 11/05/18 00:00 IMPRESSION: 1. LINEAR METALLIC FOREIGN OBJECT IN THE SOFT TISSUES OF THE PAD OF THE DISTAL THUMB. 2. SKIN DEFECT IN THE PALM WITH EXTENSIVE GAS EXTENDING INTO THE PALMAR SOFT TISSUES SUSPICIOUS FOR INFECTION. NO FLUID COLLECTION OR DRAINABLE ABSCESS. 3. NO SIGNIFICANT BONY FINDINGS. Finger X-Ray 11/12/18 00:00 IMPRESSION: LINEAR METALLIC FOREIGN OBJECT IN THE SOFT TISSUES OF THE DISTAL THUMB. NO CHANGE PER KUB X-Ray 11/22/18 17:41 IMPRESSION: Mild decompression of the gastric air status post nasogastric tube placement. Abdomen/Pelvis CT 11/23/18 00:00 IMPRESSION: Small bilateral pleural effusions are present with bilateral lower lobe airspace disease. Small amount of ascites. Oral contrast is seen throughout the stomach and small bowel without evidence of gastric outlet obstruction or small bowel obstruction. Assessment & Plan - Diagnosis (1) Abscess of right hand Is this a current diagnosis for this admission?: Yes Plan: She continues on IV Ancef now we plan to send her home on Keflex. I switched her micafungin to Diflucan because there is a 7-18% reported incidence of nausea and vomiting with this medication. When she ultimately leaves the hospital, she will follow-up with orthopedics as an outpatient. There is the possibility of another I&D, possibly tomorrow. (2) Nausea and vomiting Qualifiers: Vomiting type: unspecified Vomiting Intractability: non-intractable Qualified Code(s): R11.2 - Nausea with vomiting, unspecified Is this a current diagnosis for this admission?: Yes Plan: Resolved. She may have had a mild ileus. CT the abdomen and pelvis did not show evidence of gastric outlet obstruction or small bowel obstruction. She is an uncontrolled diabetic and so there is also a possibility that she is got some delayed gastric emptying. It could also have been from the micafungin. - Time Time Spent with patient: 25-34 minutes
[2018-11-23] MEDS: MAGNESIUM SULFATE/D5W 1 GM/100 ML RTUPB IV SCH ×2 (17:12→18:14)
[2018-11-24] MEDS: CEFAZOLIN SODIUM 2 GM in DEXTROSE 5%-WATER 100 ML IV SCH ×3 (06:48→21:48)
[2018-11-24] MEDS: GABAPENTIN 100 MG CAPSULE NG SCH ×3 (06:49→21:48)
[2018-11-24] MEDS: FAMOTIDINE 20 MG TABLET NG SCH ×2 (10:11→21:48)
[2018-11-24] MEDS: FLUCONAZOLE 200 MG/NS RTU 200 MG/100 ML RTUPB IV SCH (10:11)
[2018-11-24] MEDS: PANTOPRAZOLE SODIUM 40 MG VIAL IV SCH ×2 (10:11→21:48)
[2018-11-24] MEDS: ASPIRIN 81 MG TABLET, CHEWABLE NG SCH (10:11)
[2018-11-24] MEDS: DOCUSATE SODIUM 100 MG/10 ML UDC NG SCH (10:11)
--- NOTE | 2018-11-24 11:09 | PDOC PROGRESS REPORT ---
Subjective Progress Note for:: 11/24/18 Subjective:: No adverse events overnight. No new complaints. We started her on clear liquids last night and she tolerated it so far. Blood pressures have improved. No fevers. Reason For Visit: SEPSIS,RIGHT HAND WOUND INFECTION,HYPONATREMIA Physical Exam Vital Signs: Temp Pulse Resp BP Pulse Ox 97.5 F 88 16 156/78 H 98 11/24/18 07:36 11/24/18 07:36 11/24/18 07:36 11/24/18 07:36 11/24/18 07:36 Intake & Output 11/23/18 11/24/18 11/25/18 06:59 06:59 06:59 Intake Total 2760 3800 100 Output Total 2850 2100 Balance -90 1700 100 Weight 55.3 kg 56.7 kg General appearance: PRESENT: no acute distress, cooperative, disheveled, more interactive today Respiratory exam: PRESENT: clear to auscultation marce, symmetrical, unlabored. ABSENT: accessory muscle use, crackles, prolonged expiratory phas, rhonchi, tachypnea, wheezes Cardiovascular exam: PRESENT: RRR, +S1, +S2 Vascular exam: PRESENT: normal capillary refill GI/Abdominal exam: PRESENT: Hypoactive bowel sounds, soft. ABSENT: distended, guarding, rebound, tenderness Extremities exam: PRESENT: other - She had bilateral AKA's. Her right hand was covered in a heavy bandage Musculoskeletal exam: PRESENT: tenderness - Right hand Neurological exam: PRESENT: Drowsy but arousable, oriented to person, oriented to place, oriented to time, oriented to situation Psychiatric exam: PRESENT: appropriate affect, normal mood Skin exam: PRESENT: dry, warm Results Laboratory Results: 11/23/18 12:32 11/23/18 04:31 11/23/18 11/23/18 04:31 12:32 WBC 15.7 H RBC 3.29 L Hgb 9.4 L Hct 28.3 L MCV 86 MCH 28.5 MCHC 33.2 RDW 14.2 H Plt Count 497 H Seg Neutrophils % 86.0 H Lymphocytes % 8.6 L Monocytes % 4.5 Eosinophils % 0.2 Basophils % 0.7 Absolute Neutrophils 13.5 H Absolute Lymphocytes 1.3 Absolute Monocytes 0.7 Absolute Eosinophils 0.0 Absolute Basophils 0.1 Magnesium 1.4 L 11/04/18 11/07/18 12:32 13:47 Creatine Kinase 70 Troponin I 0.014 Impressions: Forearm X-Ray 11/04/18 10:50 IMPRESSION: Diffuse soft tissue swelling about the right thumb. There is a radiodense metallic fragment such as a needle or wire present in the pad of the right thumb. No evidence of subcutaneous emphysema; CT is more sensitive for the evaluation of subcutaneous emphysema. MRI is more sensitive for the evaluation of marrow edema and osteomyelitis. Hand X-Ray 11/04/18 10:50 IMPRESSION: Diffuse soft tissue swelling about the right thumb. There is a radiodense metallic fragment such as a needle or wire present in the pad of the right thumb. No evidence of subcutaneous emphysema; CT is more sensitive for the evaluation of subcutaneous emphysema. MRI is more sensitive for the evaluation of marrow edema and osteomyelitis. Upper Extremity CT 11/05/18 00:00 IMPRESSION: 1. LINEAR METALLIC FOREIGN OBJECT IN THE SOFT TISSUES OF THE PAD OF THE DISTAL THUMB. 2. SKIN DEFECT IN THE PALM WITH EXTENSIVE GAS EXTENDING INTO THE PALMAR SOFT TISSUES SUSPICIOUS FOR INFECTION. NO FLUID COLLECTION OR DRAINABLE ABSCESS. 3. NO SIGNIFICANT BONY FINDINGS. Finger X-Ray 11/12/18 00:00 IMPRESSION: LINEAR METALLIC FOREIGN OBJECT IN THE SOFT TISSUES OF THE DISTAL THUMB. NO CHANGE PER KUB X-Ray 11/22/18 17:41 IMPRESSION: Mild decompression of the gastric air status post nasogastric tube placement. Abdomen/Pelvis CT 11/23/18 00:00 IMPRESSION: Small bilateral pleural effusions are present with bilateral lower lobe airspace disease. Small amount of ascites. Oral contrast is seen throughout the stomach and small bowel without evidence of gastric outlet obstruction or small bowel obstruction. Assessment & Plan - Diagnosis (1) Abscess of right hand Is this a current diagnosis for this admission?: Yes Plan: She continues on IV Ancef now we plan to send her home on Keflex. I switched her micafungin to Diflucan because there is a 7-18% reported incidence of nausea and vomiting with this medication. When she ultimately leaves the hospital, she will follow-up with orthopedics as an outpatient. There is the possibility of another I&D, possibly today. (2) Nausea and vomiting Qualifiers: Vomiting type: unspecified Vomiting Intractability: non-intractable Qualified Code(s): R11.2 - Nausea with vomiting, unspecified Is this a current diagnosis for this admission?: Yes Plan: I do suspect her gastric distention was possibly a form of ileus, or diabetic gastroparesis. She does have a history of noncompliance, which has resulted in several of her current medical issues. She tolerated the NG tube well and it did make her feel better, and we started her on clear liquids last night. If she is tolerating clears this morning, we can probably discontinue the NG tube. - Time Time Spent with patient: 25-34 minutes
[2018-11-24 12:40] LABS: ANION GAP 7 (5-19); BLOOD UREA NITROGEN 6 mg/dL (7-20); CALCIUM 7.4 mg/dL (8.4-10.2); CARBON DIOXIDE 31 mmol/L (22-30); CHLORIDE 93 mmol/L (98-107); GLUCOSE 144 mg/dL (75-110); POTASSIUM 3.2 mmol/L (3.6-5.0); SODIUM 131.4 mmol/L (137-145)
--- NOTE | 2018-11-24 18:15 | PDOC PROGRESS REPORT ---
Subjective Subjective:: Patient states numbness tingling and pain have continued to improve. Denies fever chills or sweats. Continues to have nausea, Reason For Visit: SEPSIS,RIGHT HAND WOUND INFECTION,HYPONATREMIA Physical Exam Vital Signs: Temp Pulse Resp BP Pulse Ox 97.9 F 95 18 145/70 H 92 11/24/18 11:55 11/24/18 14:00 11/24/18 11:55 11/24/18 11:55 11/24/18 11:55 Intake & Output 11/23/18 11/24/18 11/25/18 06:59 06:59 06:59 Intake Total 2760 3800 746 Output Total 2850 2100 2600 Balance -90 1700 -1854 Weight 55.3 kg 56.7 kg Musculoskeletal exam: PRESENT: other - Right hand: Open wound along the mid palmar aspect there is increased evidence of granulation tissue with underlying exposed synovium. No evidence of purulence. Swelling along the thenar and hypo-thenar eminence is significantly improved. 3 cm open wound along the thenar eminence with increased granulation. No pain with passive stretch. No streaking erythema. Results Laboratory Results: 11/23/18 12:32 11/24/18 11:46 11/24/18 11:46 Sodium 131.4 L Potassium 3.2 L Chloride 93 L Carbon Dioxide 31 H Anion Gap 7 BUN 6 L Creatinine 0.70 Est GFR ( Amer) > 60 Est GFR (Non-Af Amer) > 60 Glucose 144 H Calcium 7.4 L Magnesium 1.7 11/23/18 03:40 Catheterized Urine Urine Culture - Final C.albicans/C.dubliniensis 11/04/18 11/07/18 12:32 13:47 Creatine Kinase 70 Troponin I 0.014 Impressions: Forearm X-Ray 11/04/18 10:50 IMPRESSION: Diffuse soft tissue swelling about the right thumb. There is a radiodense metallic fragment such as a needle or wire present in the pad of the right thumb. No evidence of subcutaneous emphysema; CT is more sensitive for the evaluation of subcutaneous emphysema. MRI is more sensitive for the evaluation of marrow edema and osteomyelitis. Hand X-Ray 11/04/18 10:50 IMPRESSION: Diffuse soft tissue swelling about the right thumb. There is a radiodense metallic fragment such as a needle or wire present in the pad of the right thumb. No evidence of subcutaneous emphysema; CT is more sensitive for the evaluation of subcutaneous emphysema. MRI is more sensitive for the evaluation of marrow edema and osteomyelitis. Upper Extremity CT 11/05/18 00:00 IMPRESSION: 1. LINEAR METALLIC FOREIGN OBJECT IN THE SOFT TISSUES OF THE PAD OF THE DISTAL THUMB. 2. SKIN DEFECT IN THE PALM WITH EXTENSIVE GAS EXTENDING INTO THE PALMAR SOFT TISSUES SUSPICIOUS FOR INFECTION. NO FLUID COLLECTION OR DRAINABLE ABSCESS. 3. NO SIGNIFICANT BONY FINDINGS. Finger X-Ray 11/12/18 00:00 IMPRESSION: LINEAR METALLIC FOREIGN OBJECT IN THE SOFT TISSUES OF THE DISTAL THUMB. NO CHANGE PER KUB X-Ray 11/22/18 17:41 IMPRESSION: Mild decompression of the gastric air status post nasogastric tube placement. Abdomen/Pelvis CT 11/23/18 00:00 IMPRESSION: Small bilateral pleural effusions are present with bilateral lower lobe airspace disease. Small amount of ascites. Oral contrast is seen throughout the stomach and small bowel without evidence of gastric outlet obstruction or small bowel obstruction. Assessment & Plan - Diagnosis (1) Infection of right hand Is this a current diagnosis for this admission?: Yes Plan: Postop day 4 status post repeat irrigation and debridement right hand Clinically patient feels as though she is improving although she continues to have elevated white count. There is open wound along the thenar eminence and mid palm I feel ultimately patient will require repeat operative intervention for closure otherwise exposed nerve and tendon are concerning of possible persistent infection. We will proceed with definitive closure once medically stable.
[2018-11-24] MEDS: ONDANSETRON HCL INJ/PF 4 MG/2 ML SDV IV PRN (18:41)
[2018-11-25] MEDS: ONDANSETRON HCL INJ/PF 4 MG/2 ML SDV IV PRN ×3 (00:43→16:42)
[2018-11-25] MEDS: GABAPENTIN 100 MG CAPSULE NG SCH ×3 (06:28→22:02)
[2018-11-25] MEDS: CEFAZOLIN SODIUM 2 GM in DEXTROSE 5%-WATER 100 ML IV SCH ×2 (06:28→15:05)
[2018-11-25] MEDS: INSULIN LISPRO 100 UNIT/ML 3 ML VIAL SUBCUT PRN (08:04)
[2018-11-25] MEDS: FAMOTIDINE 20 MG TABLET NG SCH ×2 (09:55→22:02)
[2018-11-25] MEDS: DOCUSATE SODIUM 100 MG/10 ML UDC NG SCH (09:55)
[2018-11-25] MEDS: FLUCONAZOLE 200 MG/NS RTU 200 MG/100 ML RTUPB IV SCH (09:55)
[2018-11-25] MEDS: ASPIRIN 81 MG TABLET, CHEWABLE NG SCH (09:55)
[2018-11-25] MEDS: PANTOPRAZOLE SODIUM 40 MG VIAL IV SCH (09:55)
--- NOTE | 2018-11-25 10:44 | PDOC PROGRESS REPORT ---
Subjective Subjective:: Patient states numbness tingling and pain have continued to improve. Denies fever chills or sweats. Continues to have nausea, but no vomiting. Reason For Visit: SEPSIS,RIGHT HAND WOUND INFECTION,HYPONATREMIA Physical Exam Vital Signs: Temp Pulse Resp BP Pulse Ox 98.1 F 93 18 151/73 H 97 11/25/18 07:29 11/25/18 07:29 11/25/18 07:29 11/25/18 07:29 11/25/18 07:29 Intake & Output 11/24/18 11/25/18 11/26/18 06:59 06:59 06:59 Intake Total 3800 1146 Output Total 2100 4200 Balance 1700 -3054 Weight 56.7 kg 56.7 kg Musculoskeletal exam: PRESENT: other - Right upper extremity: Dressing clean/dry/intact. No streaking erythema. PIP joints wrist in flexed position. Hypoesthesia on the distal tip. No pain with passive stretch. Results Laboratory Results: 11/23/18 12:32 11/24/18 11:46 11/24/18 11:46 Sodium 131.4 L Potassium 3.2 L Chloride 93 L Carbon Dioxide 31 H Anion Gap 7 BUN 6 L Creatinine 0.70 Est GFR ( Amer) > 60 Est GFR (Non-Af Amer) > 60 Glucose 144 H Calcium 7.4 L Magnesium 1.7 11/23/18 03:40 Catheterized Urine Urine Culture - Final C.albicans/C.dubliniensis 11/04/18 11/07/18 12:32 13:47 Creatine Kinase 70 Troponin I 0.014 Impressions: Forearm X-Ray 11/04/18 10:50 IMPRESSION: Diffuse soft tissue swelling about the right thumb. There is a radiodense metallic fragment such as a needle or wire present in the pad of the right thumb. No evidence of subcutaneous emphysema; CT is more sensitive for the evaluation of subcutaneous emphysema. MRI is more sensitive for the evaluation of marrow edema and osteomyelitis. Hand X-Ray 11/04/18 10:50 IMPRESSION: Diffuse soft tissue swelling about the right thumb. There is a radiodense metallic fragment such as a needle or wire present in the pad of the right thumb. No evidence of subcutaneous emphysema; CT is more sensitive for the evaluation of subcutaneous emphysema. MRI is more sensitive for the evaluation of marrow edema and osteomyelitis. Upper Extremity CT 11/05/18 00:00 IMPRESSION: 1. LINEAR METALLIC FOREIGN OBJECT IN THE SOFT TISSUES OF THE PAD OF THE DISTAL THUMB. 2. SKIN DEFECT IN THE PALM WITH EXTENSIVE GAS EXTENDING INTO THE PALMAR SOFT TISSUES SUSPICIOUS FOR INFECTION. NO FLUID COLLECTION OR DRAINABLE ABSCESS. 3. NO SIGNIFICANT BONY FINDINGS. Finger X-Ray 11/12/18 00:00 IMPRESSION: LINEAR METALLIC FOREIGN OBJECT IN THE SOFT TISSUES OF THE DISTAL THUMB. NO CHANGE PER KUB X-Ray 11/22/18 17:41 IMPRESSION: Mild decompression of the gastric air status post nasogastric tube placement. Abdomen/Pelvis CT 11/23/18 00:00 IMPRESSION: Small bilateral pleural effusions are present with bilateral lower lobe airspace disease. Small amount of ascites. Oral contrast is seen throughout the stomach and small bowel without evidence of gastric outlet obstruction or small bowel obstruction. Assessment & Plan - Diagnosis (1) Infection of right hand Is this a current diagnosis for this admission?: Yes Plan: Postop day 4 status post repeat irrigation and debridement right hand Clinically patient feels as though she is improving although she continues to have elevated white count. There is open wound along the thenar eminence and mid palm I feel ultimately patient will require repeat operative intervention for closure otherwise exposed nerve and tendon are concerning of possible persistent infection. We will proceed with definitive closure within the next 24 hours
[2018-11-25] MEDS ORDERED: POTASSIUM CHLORIDE 10 MEQ CAPSULE.ER PO ONE (12:00)
[2018-11-25] MEDS: INSULIN LISPRO 100 UNIT/ML 3 ML VIAL SUBCUT SCH ×3 (13:09→21:55)
[2018-11-25 13:18] LABS: ANION GAP 9 (5-19); BLOOD UREA NITROGEN 5 mg/dL (7-20); CALCIUM 7.3 mg/dL (8.4-10.2); CARBON DIOXIDE 33 mmol/L (22-30); CHLORIDE 91 mmol/L (98-107); GLUCOSE 118 mg/dL (75-110); SODIUM 132.8 mmol/L (137-145)
[2018-11-25 13:27] LABS: POTASSIUM 2.8 mmol/L (3.6-5.0)
--- NOTE | 2018-11-25 14:56 | PDOC CONSULTATION ---
Consultation Consult Date: 11/25/18 Attending physician:: MICHAEL MARROQUIN Consult reason:: drop in Hgb. nausea and vomiting. gastrocult positive findings. rule out GI bleed History of Present Illness Admission Date/PCP: 11/04/18 16:50 History of Present Illness: RAMAN MANCIA is a 63 year old female patient has been admitted patient noted to have drop in her Hgb requiring blood transfusion has been having post prandial nausea and vomiting denies any melena however patient states has GERD she requires debridement she has gastrocult positive stools she will need to be scheduled for an EGD Past Medical History Endocrine Medical History: Reports: Diabetes Mellitus Type 1 Psychiatric Medical History: Reports: Depression Social History Lives with: Family - daughter Smoking Status: Never Smoker Frequency of Alcohol Use: None Hx Recreational Drug Use: No Drugs: None Hx Prescription Drug Abuse: No - Advance Directive Resuscitation Status: Full Code Family History Family History: Reviewed & Not Pertinent Parental Family History Reviewed: Yes Children Family History Reviewed: Unknown Sibling(s) Family History Reviewed.: Unknown Medication/Allergy Home Medications: Aspirin [Adult Low Dose Aspirin EC] 81 mg PO DAILY 11/04/18 Insulin Glargine,Hum.rec.anlog [Lantus Insulin Inj 300 Unit/3 ml Pen] 20 unit SUBCUT QHS 11/04/18 Insulin Lispro [Humalog Insulin (Lispro) 100 unit/mL] 0 units SQ .PERSLIDINGSCALE 11/04/18 Allergies/Adverse Reactions: No Known Allergies Allergy (Unverified 11/04/18 10:23) Review of Systems Constitutional: ABSENT: fever(s), headache(s), night sweats, weakness Eyes: ABSENT: visual disturbances Ears: ABSENT: hearing changes Nose, Mouth, and Throat: ABSENT: mouth pain, sore throat Cardiovascular: ABSENT: edema, orthropnea Respiratory: ABSENT: dyspnea, hemoptysis Gastrointestinal: PRESENT: heartburn, nausea, vomiting. ABSENT: dysphagia Genitourinary: ABSENT: dysuria, hematuria Musculoskeletal: ABSENT: deformity, joint swelling Integumentary: ABSENT: lesions, pruritus Neurological: ABSENT: syncope, tingling, tremor(s), vertigo Endocrine: ABSENT: polydipsia, polyphagia, polyuria Hematologic/Lymphatic: ABSENT: easy bruising Physical Exam Vital Signs: Temp Pulse Resp BP Pulse Ox 98.1 F 93 18 151/73 H 97 11/25/18 07:29 11/25/18 07:29 11/25/18 07:29 11/25/18 07:29 11/25/18 07:29 Intake & Output 11/24/18 11/25/18 11/26/18 06:59 06:59 06:59 Intake Total 3800 1146 858 Output Total 2100 4200 2100 Balance 3811 -9550 -1059 Weight 56.7 kg 56.7 kg General appearance: PRESENT: no acute distress, well-developed, well-nourished Head exam: PRESENT: atraumatic, normocephalic Eye exam: PRESENT: EOMI, PERRLA. ABSENT: scleral icterus Mouth exam: PRESENT: moist, neck supple Throat exam: ABSENT: tonsillar exudate, tonsillogmegaly Neck exam: ABSENT: meningismus, tenderness, thyromegaly Respiratory exam: PRESENT: symmetrical, unlabored. ABSENT: tachypnea, wheezes Cardiovascular exam: PRESENT: RRR, +S1, +S2 GI/Abdominal exam: PRESENT: soft. ABSENT: rebound, rigid, tenderness Extremities exam: ABSENT: joint swelling Musculoskeletal exam: PRESENT: full ROM Neurological exam: PRESENT: oriented to time, oriented to situation, CN II-XII grossly intact Focused psych exam: ABSENT: restlessness Skin exam: PRESENT: normal color. ABSENT: mottled, pallor, urticaria, vesicles Results Laboratory Results: 11/23/18 12:32 11/25/18 12:19 11/25/18 12:19 Sodium 132.8 L Potassium 2.8 L* Chloride 91 L Carbon Dioxide 33 H Anion Gap 9 BUN 5 L Creatinine 0.62 Est GFR ( Amer) > 60 Est GFR (Non-Af Amer) > 60 Glucose 118 H Calcium 7.3 L 11/23/18 03:40 Catheterized Urine Urine Culture - Final C.albicans/C.dubliniensis 11/04/18 11/07/18 12:32 13:47 Creatine Kinase 70 Troponin I 0.014 Impressions: Forearm X-Ray 11/04/18 10:50 IMPRESSION: Diffuse soft tissue swelling about the right thumb. There is a radiodense metallic fragment such as a needle or wire present in the pad of the right thumb. No evidence of subcutaneous emphysema; CT is more sensitive for the evaluation of subcutaneous emphysema. MRI is more sensitive for the evaluation of marrow edema and osteomyelitis. Hand X-Ray 11/04/18 10:50 IMPRESSION: Diffuse soft tissue swelling about the right thumb. There is a r adiodense metallic fragment such as a needle or wire present in the pad of the right thumb. No evidence of subcutaneous emphysema; CT is more sensitive for the evaluation of subcutaneous emphysema. MRI is more sensitive for the evaluation of marrow edema and osteomyelitis. Upper Extremity CT 11/05/18 00:00 IMPRESSION: 1. LINEAR METALLIC FOREIGN OBJECT IN THE SOFT TISSUES OF THE PAD OF THE DISTAL THUMB. 2. SKIN DEFECT IN THE PALM WITH EXTENSIVE GAS EXTENDING INTO THE PALMAR SOFT TISSUES SUSPICIOUS FOR INFECTION. NO FLUID COLLECTION OR DRAINABLE ABSCESS. 3. NO SIGNIFICANT BONY FINDINGS. Finger X-Ray 11/12/18 00:00 IMPRESSION: LINEAR METALLIC FOREIGN OBJECT IN THE SOFT TISSUES OF THE DISTAL THUMB. NO CHANGE PER KUB X-Ray 11/22/18 17:41 IMPRESSION: Mild decompression of the gastric air status post nasogastric tube placement. Abdomen/Pelvis CT 11/23/18 00:00 IMPRESSION: Small bilateral pleural effusions are present with bilateral lower lobe airspace disease. Small amount of ascites. Oral contrast is seen throughout the stomach and small bowel without evidence of gastric outlet obstruction or small bowel obstruction. Assessment & Plan - Diagnosis (1) Nausea and vomiting Qualifiers: Vomiting type: unspecified Vomiting Intractability: non-intractable Qualified Code(s): R11.2 - Nausea with vomiting, unspecified Is this a current diagnosis for this admission?: Yes Plan: patient has gastrocult positive stools and has symptoms ? possible ulcer patient has anemia will need EGD Risks, benefits and alternatives are discussed with the patient in detail further recommendations to follow she is willing to schedule - Time Time Spent: 50 to 70 Minutes
[2018-11-25 15:21] LABS: ABSOLUTE BASOPHILS # (AUTO) 0.1 10^3/uL (0.0-0.2); ABSOLUTE EOSINOPHILS # (AUTO) 0.1 10^3/uL (0.0-0.6); ABSOLUTE LYMPHOCYTES (AUTO) 1.4 10^3/uL (0.5-4.7); ABSOLUTE MONOCYTES (AUTO) 0.8 10^3/uL (0.1-1.4); ABSOLUTE NEUT (AUTO) 6.8 10^3/uL (1.7-8.2); BASOPHILS % (AUTO) 0.8 % (0-2); EOSINOPHILS % (AUTO) 0.7 % (0-6); HEMATOCRIT 31.9 % (36.0-47.0); HEMOGLOBIN 10.8 g/dL (12.0-15.5); LYMPHOCYTES % (AUTO) 15.5 % (13-45); MEAN CORPUSCULAR HEMOGLOBIN 28.8 pg (27.0-33.4); MEAN CORPUSCULAR HGB CONC 33.9 g/dL (32.0-36.0); MEAN CORPUSCULAR VOLUME 85 fl (80-97); MONOCYTES % (AUTO) 8.3 % (3-13); PLATELET COUNT 494 10^3/uL (150-450); RED BLOOD COUNT 3.75 10^6/uL (3.72-5.28); RED CELL DISTRIBUTION WIDTH 14.3 % (11.5-14.0); SEGMENTED NEUTROPHILS % (AUTO) 74.7 % (42-78); TOTAL CELLS COUNTED % (AUTO) 100 %; WHITE BLOOD COUNT 9.2 10^3/uL (4.0-10.5)
--- NOTE | 2018-11-25 15:34 | PDOC PROGRESS REPORT ---
Subjective Progress Note for:: 11/25/18 Subjective:: This is a 62 yr old female with a PMH of diabetes and history of bilateral lower extremity amputation who was admitted with right palmar abscess after sustaining a wound from a fall. She underwent I&D by ortho on 11/12/18. She was started initially on broad spectrum antibiotics. Her cultures came back positive for MSSA, Group B Strep and Sarahi and she was swithced to cefazolin and Micafungin per ID recommendation. She had recurrence of swelling in the area and drainage and patient underwent repeat I&D on 11/17/18. She did improve clinically but had persistent elevated WBCs. Ortho has planned for a possible 3rd debridement. Patient's course was complicated by nausea and abdominal distention. NG was placed as there was initial concern for SBO but CT of the abdomen was not suggestive of SBO. She also had a drop in her Hb requriing one unit of pRBC. Her gastic occult blood was also positive. No acute event overnight. Upon encounter, she appears comfortable. She says her right hand pain continue to improve. Reason For Visit: SEPSIS,RIGHT HAND WOUND INFECTION,HYPONATREMIA Physical Exam Vital Signs: Temp Pulse Resp BP Pulse Ox 98.1 F 93 18 151/73 H 97 11/25/18 07:29 11/25/18 07:29 11/25/18 07:29 11/25/18 07:29 11/25/18 07:29 Intake & Output 11/24/18 11/25/18 11/26/18 06:59 06:59 06:59 Intake Total 3800 1246 858 Output Total 2100 4200 2100 Balance 1700 -2954 -1242 Weight 125 lb 0.034 oz 125 lb 0.034 oz General appearance: PRESENT: no acute distress, well-developed, well-nourished Head exam: PRESENT: atraumatic, normocephalic Eye exam: PRESENT: conjunctiva pink, EOMI, PERRLA. ABSENT: scleral icterus Ear exam: PRESENT: normal external ear exam Mouth exam: PRESENT: moist, tongue midline Neck exam: ABSENT: carotid bruit, JVD, lymphadenopathy, thyromegaly Respiratory exam: PRESENT: clear to auscultation marce. ABSENT: rales, rhonchi, wheezes Cardiovascular exam: PRESENT: RRR. ABSENT: diastolic murmur, rubs, systolic murmur Pulses: PRESENT: normal dorsalis pedis pul GI/Abdominal exam: PRESENT: normal bowel sounds, soft. ABSENT: distended, guarding, mass, organolmegaly, rebound, tenderness Rectal exam: PRESENT: deferred Musculoskeletal exam: PRESENT: other - dressing in place on right hand Neurological exam: PRESENT: alert, awake, oriented to person, oriented to place, oriented to time, oriented to situation, CN II-XII grossly intact. ABSENT: motor sensory deficit Results Laboratory Results: 11/25/18 15:10 11/25/18 12:19 11/25/18 11/25/18 12:19 15:10 WBC 9.2 RBC 3.75 Hgb 10.8 L Hct 31.9 L MCV 85 MCH 28.8 MCHC 33.9 RDW 14.3 H Plt Count 494 H Seg Neutrophils % 74.7 Lymphocytes % 15.5 Monocytes % 8.3 Eosinophils % 0.7 Basophils % 0.8 Absolute Neutrophils 6.8 Absolute Lymphocytes 1.4 Absolute Monocytes 0.8 Absolute Eosinophils 0.1 Absolute Basophils 0.1 Sodium 132.8 L Potassium 2.8 L* Chloride 91 L Carbon Dioxide 33 H Anion Gap 9 BUN 5 L Creatinine 0.62 Est GFR ( Amer) > 60 Est GFR (Non-Af Amer) > 60 Glucose 118 H Calcium 7.3 L 11/23/18 03:40 Catheterized Urine Urine Culture - Final C.albicans/C.dubliniensis 11/04/18 11/07/18 12:32 13:47 Creatine Kinase 70 Troponin I 0.014 Impressions: Forearm X-Ray 11/04/18 10:50 IMPRESSION: Diffuse soft tissue swelling about the right thumb. There is a radiodense metallic fragment such as a needle or wire present in the pad of the right thumb. No evidence of subcutaneous emphysema; CT is more sensitive for the evaluation of subcutaneous emphysema. MRI is more sensitive for the evaluation of marrow edema and osteomyelitis. Hand X-Ray 11/04/18 10:50 IMPRESSION: Diffuse soft tissue swelling about the right thumb. There is a radiodense metallic fragment such as a needle or wire present in the pad of the right thumb. No evidence of subcutaneous emphysema; CT is more sensitive for the evaluation of subcutaneous emphysema. MRI is more sensitive for the evaluation of marrow edema and osteomyelitis. Upper Extremity CT 11/05/18 00:00 IMPRESSION: 1. LINEAR METALLIC FOREIGN OBJECT IN THE SOFT TISSUES OF THE PAD OF THE DISTAL THUMB. 2. SKIN DEFECT IN THE PALM WITH EXTENSIVE GAS EXTENDING INTO THE PALMAR SOFT TISSUES SUSPICIOUS FOR INFECTION. NO FLUID COLLECTION OR DRAINABLE ABSCESS. 3. NO SIGNIFICANT BONY FINDINGS. Finger X-Ray 11/12/18 00:00 IMPRESSION: LINEAR METALLIC FOREIGN OBJECT IN THE SOFT TISSUES OF THE DISTAL THUMB. NO CHANGE PER KUB X-Ray 11/22/18 17:41 IMPRESSION: Mild decompression of the gastric air status post nasogastric tube placement. Abdomen/Pelvis CT 11/23/18 00:00 IMPRESSION: Small bilateral pleural effusions are present with bilateral lower lobe airspace disease. Small amount of ascites. Oral contrast is seen throughout the stomach and small bowel without evidence of gastric outlet obstruction or small bowel obstruction. Assessment & Plan - Diagnosis (1) Abscess of right hand Is this a current diagnosis for this admission?: Yes Plan: She underwent I&D by ortho on 11/12/18. She was started initially on broad spectrum antibiotics. Her cultures came back positive for MSSA, Group B Strep and Sarahi and she was swithced to cefazolin and Micafungin per ID recommendation. Micafungin switched to diflucan by preceding provider. She had recurrence of swelling in the area and drainage and patient underwent repeat I&D on 11/17/18. She did improve clinically but had persistent elevated WBCs. Ortho planning for repeat I&D tomorrow. (2) Foreign body of finger of right hand Is this a current diagnosis for this admission?: Yes Plan: Noted foreign metallic object on right thumb on CT and x-ray imaging. Noted documentation that ortho, Dr. Diaz is aware of foreign object and deems this is not a concern. (3) Acute blood loss anemia Is this a current diagnosis for this admission?: Yes Plan: Possible upper GI source. She required 1 u of pRBC after her Hb dropped from 8.9 to 7.8. Hb has been stable since then. Gastric occult blood was positive. Will consult GI for further recommendations. (4) Hypokalemia Is this a current diagnosis for this admission?: Yes Plan: Potassium 2.8. Will replace with 60 PO and 40 IV. - Time Time Spent with patient: 25-34 minutes
[2018-11-25] MEDS ORDERED: GLUCAGON,HUMAN RECOMB 1 MG INJ SUBCUT PRN (16:27)
[2018-11-25] MEDS ORDERED: DEXTROSE 40% GEL 15 GM TUBE PO PRN ×2 (16:27)
[2018-11-25] MEDS ORDERED: DEXTROSE 50%-WATER 25 GM/50 ML DISP.SYRIN IV PRN ×2 (16:27)
[2018-11-25] MEDS: POTASSI CL 20 MEQ/50 ML RIDER 20 MEQ/50 ML RTUPB IV SCH ×2 (16:42→22:01)
[2018-11-25] MEDS ORDERED: POTASSI CL 20 MEQ/50 ML RIDER 20 MEQ/50 ML RTUPB IV ONE (22:00)
[2018-11-26] MEDS: GABAPENTIN 100 MG CAPSULE NG SCH ×3 (05:26→22:21)
[2018-11-26 05:59] LABS: ANION GAP 7 (5-19); BLOOD UREA NITROGEN 5 mg/dL (7-20); CALCIUM 7.4 mg/dL (8.4-10.2); CARBON DIOXIDE 31 mmol/L (22-30); CHLORIDE 97 mmol/L (98-107); GLUCOSE 208 mg/dL (75-110); SODIUM 135.4 mmol/L (137-145)
[2018-11-26 06:29] LABS: POTASSIUM 4.1 mmol/L (3.6-5.0)
[2018-11-26] MEDS ORDERED: BACITRACIN INJ 50,000 UNIT VIAL ONE (07:26)
[2018-11-26] MEDS: ONDANSETRON HCL INJ/PF 4 MG/2 ML SDV IV PRN (07:29)
[2018-11-26] MEDS: INSULIN LISPRO 100 UNIT/ML 3 ML VIAL SUBCUT SCH ×4 (08:21→22:20)
[2018-11-26] MEDS ORDERED: METOCLOPRAMIDE HCL INJ/PF 10 MG/2 ML SDV ONE (09:39)
[2018-11-26] MEDS ORDERED: FAMOTIDINE INJ/PF 20 MG/2 ML SDV IV ONE (09:40)
[2018-11-26] MEDS ORDERED: MIDAZOLAM 2 MG/2 ML INJ ONE (09:48)
[2018-11-26] MEDS ORDERED: ONDANSETRON HCL INJ/PF 4 MG/2 ML SDV ONE (09:48)
[2018-11-26] MEDS ORDERED: FENTANYL CITRATE INJ/PF 100 MCG/2 ML AMPUL ONE (09:48)
[2018-11-26] MEDS ORDERED: PROPOFOL INJ 200 MG/20 ML VIAL IV ONE (09:48)
[2018-11-26] MEDS ORDERED: BUPIVACAINE HCL 0.25 % INJ/PF (2.5 MG/1 ML) 30 ML VIAL ONE (10:17)
[2018-11-26] MEDS ORDERED: LIDOCAINE 0.5% INJ-PF (5 MG/ML) 50 ML SDV ONE (10:17)
--- NOTE | 2018-11-26 10:41 | Operative Report ---
Operative Report DATE OF SURGERY: 11/26/18 PREOPERATIVE DIAGNOSIS: Right hand infection POSTOPERATIVE DIAGNOSIS: Open right palmar wound OPERATION: Complicated Irrigation and excisiona debridement right palmar wound and delayed primary closure SURGEON: TAMY STEVENSON ANESTHESIA: LMAC TISSUE REMOVED OR ALTERED: None ESTIMATED BLOOD LOSS: Minimal PROCEDURE: The patient supine on the operative table the right upper extremity and hand were prepped and draped in a sterile fashion. The skin edges are insufflated insufflated with accommodation Marcaine and Xylocaine. Skin edges are debrided back to bleeding tissue. Wound is irrigated with bulb lavage. The open palmar wound is then reapproximated with interrupted 2-0 nylon in a near far far near suture pattern. There is a thenar and hyperthenar wound which were debrided sharply back to bleeding tissue. The wound is irrigated and bandaged sterilely.
[2018-11-26] MEDS: FAMOTIDINE 20 MG TABLET NG SCH (12:06)
[2018-11-26] MEDS: DOCUSATE SODIUM 100 MG/10 ML UDC NG SCH (12:06)
[2018-11-26] MEDS: FLUCONAZOLE 200 MG/NS RTU 200 MG/100 ML RTUPB IV SCH (12:06)
[2018-11-26] MEDS: ASPIRIN 81 MG TABLET, CHEWABLE NG SCH (12:06)
--- NOTE | 2018-11-26 12:13 | Operative Report ---
Operative Report DATE OF SURGERY: 11/26/18 Operative Report: The risks benefits and alternatives of the procedure explained to the patient in detail and informed consent is obtained.A GIF Olympus video scope was inserted into the patient's mouth and hypopharynx, the esophagus is identified intubated and insufflated ,the scope was then advanced through the esophagus stomach and duodenum, retroflexion maneuver is done, the esophagus stomach and first and second portions of the duodenum examined. PREOPERATIVE DIAGNOSIS: GI bleed POSTOPERATIVE DIAGNOSIS: Multiple gastric ulcers and gastritis status post biopsy rule out Helicobacter pylori OPERATION: EGD with biopsy SURGEON: MICHAEL MARROQUIN ANESTHESIA: LMAC TISSUE REMOVED OR ALTERED: As noted above. COMPLICATIONS: None. ESTIMATED BLOOD LOSS: None. INTRAOPERATIVE FINDINGS: As noted above. PROCEDURE: Patient tolerated the procedure well. No immediate postprocedure complications are noted. She is sent back to her room in good condition. Wait on the pathology. She will need PPI therapy. Watch H&H and transfuse as necessary.
[2018-11-26] MEDS: ACETAMINOPHEN 325 MG TABLET NG PRN (13:33)
[2018-11-26] MEDS ORDERED: KETOROLAC TROMETHAMINE INJ/PF 30 MG/1 ML SDV IV PRN (15:02)
[2018-11-26] MEDS ORDERED: RINGERS SOLUTION,LACTATED 1,000 ML IV PRN (15:11)
--- NOTE | 2018-11-26 16:46 | PDOC PROGRESS REPORT ---
Subjective Progress Note for:: 11/26/18 Subjective:: This is a 62 yr old female with a PMH of diabetes and history of bilateral lower extremity amputation who was admitted with right palmar abscess after sustaining a wound from a fall. She underwent I&D by ortho on 11/12/18. She was started initially on broad spectrum antibiotics. Her cultures came back positive for MSSA, Group B Strep and Sarahi and she was swithced to cefazolin and Micafungin per ID recommendation. She had recurrence of swelling in the area and drainage and patient underwent repeat I&D on 11/17/18. She did improve clinically but had persistent elevated WBCs. Ortho has planned for a possible 3rd debridement. Patient's course was complicated by nausea and abdominal distention. NG was placed as there was initial concern for SBO but CT of the abdomen was not suggestive of SBO. She also had a drop in her Hb requring one unit of pRBC. Her gastic occult blood was also positive. 11/26: No acute event overnight. Upon encounter this morning, she appears comfortable. She says her right hand pain continue to improve. She went for EGD today which revealed multiple gastric ulcers. She also underwent a 3rd debdridement of her right hand by ortho. She complained of right had pain post op. Reason For Visit: SEPSIS,RIGHT HAND WOUND INFECTION,HYPONATREMIA Physical Exam Vital Signs: Temp Pulse Resp BP Pulse Ox 98.0 F 92 16 126/70 H 98 11/26/18 16:10 11/26/18 16:10 11/26/18 16:10 11/26/18 16:10 11/26/18 16:10 Intake & Output 11/25/18 11/26/18 11/27/18 06:59 06:59 06:59 Intake Total 1246 1358 600 Output Total 4200 3700 500 Balance -2954 -2342 100 Weight 125 lb 0.034 oz 125 lb 0.034 oz General appearance: PRESENT: no acute distress, well-developed, well-nourished Head exam: PRESENT: atraumatic, normocephalic Eye exam: PRESENT: conjunctiva pink, EOMI, PERRLA. ABSENT: scleral icterus Ear exam: PRESENT: normal external ear exam Mouth exam: PRESENT: moist, tongue midline Neck exam: ABSENT: carotid bruit, JVD, lymphadenopathy, thyromegaly Respiratory exam: PRESENT: clear to auscultation marce. ABSENT: rales, rhonchi, wheezes Cardiovascular exam: PRESENT: RRR. ABSENT: diastolic murmur, rubs, systolic m urmur Pulses: PRESENT: normal dorsalis pedis pul GI/Abdominal exam: PRESENT: normal bowel sounds, soft. ABSENT: distended, guarding, mass, organolmegaly, rebound, tenderness Rectal exam: PRESENT: deferred Extremities exam: PRESENT: other - post op dressing in place on right hand Neurological exam: PRESENT: alert, awake, oriented to person, oriented to place, oriented to time, oriented to situation, CN II-XII grossly intact. ABSENT: motor sensory deficit Results Laboratory Results: 11/25/18 15:10 11/26/18 04:30 11/26/18 04:30 Sodium 135.4 L Potassium 4.1 D Chloride 97 L Carbon Dioxide 31 H Anion Gap 7 BUN 5 L Creatinine 0.72 Est GFR ( Amer) > 60 Est GFR (Non-Af Amer) > 60 Glucose 208 H Calcium 7.4 L 11/04/18 11/07/18 12:32 13:47 Creatine Kinase 70 Troponin I 0.014 Impressions: Forearm X-Ray 11/04/18 10:50 IMPRESSION: Diffuse soft tissue swelling about the right thumb. There is a radiodense metallic fragment such as a needle or wire present in the pad of the right thumb. No evidence of subcutaneous emphysema; CT is more sensitive for the evaluation of subcutaneous emphysema. MRI is more sensitive for the evaluation of marrow edema and osteomyelitis. Hand X-Ray 11/04/18 10:50 IMPRESSION: Diffuse soft tissue swelling about the right thumb. There is a radiodense metallic fragment such as a needle or wire present in the pad of the right thumb. No evidence of subcutaneous emphysema; CT is more sensitive for the evaluation of subcutaneous emphysema. MRI is more sensitive for the evaluation of marrow edema and osteomyelitis. Upper Extremity CT 11/05/18 00:00 IMPRESSION: 1. LINEAR METALLIC FOREIGN OBJECT IN THE SOFT TISSUES OF THE PAD OF THE DISTAL THUMB. 2. SKIN DEFECT IN THE PALM WITH EXTENSIVE GAS EXTENDING INTO THE PALMAR SOFT TISSUES SUSPICIOUS FOR INFECTION. NO FLUID COLLECTION OR DRAINABLE ABSCESS. 3. NO SIGNIFICANT BONY FINDINGS. Finger X-Ray 11/12/18 00:00 IMPRESSION: LINEAR METALLIC FOREIGN OBJECT IN THE SOFT TISSUES OF THE DISTAL THUMB. NO CHANGE PER KUB X-Ray 11/22/18 17:41 IMPRESSION: Mild decompression of the gastric air status post nasogastric tube placement. Abdomen/Pelvis CT 11/23/18 00:00 IMPRESSION: Small bilateral pleural effusions are present with bilateral lower lobe airspace disease. Small amount of ascites. Oral contrast is seen throughout the stomach and small bowel without evidence of gastric outlet obstruction or small bowel obstruction. Assessment & Plan - Diagnosis (1) Abscess of right hand Is this a current diagnosis for this admission?: Yes Plan: She underwent I&D by ortho on 11/12/18. She was started initially on broad spectrum antibiotics. Her cultures came back positive for MSSA, Group B Strep and Sarahi and she was swithced to cefazolin and Micafungin per ID recom mendation. Micafungin switched to diflucan by preceding provider. She had recurrence of swelling in the area and drainage and patient underwent repeat I&D on 11/17/18. She did improve clinically but had persistent elevated WBCs. S/P 3rd debdridement 11/26/18. Will add Toradol prn for post op pain. (2) Acute blood loss anemia Is this a current diagnosis for this admission?: Yes Plan: Possible upper GI source. She required 1 u of pRBC after her Hb dropped from 8.9 to 7.8. Hb has been stable since then. Gastric occult blood was positive. She underwent EGD today 11/26/18 which revealed multiple gastric ulcers. Her hemoglobin has remained stable. Pepcid switched to Protonix. (3) Hypokalemia Is this a current diagnosis for this admission?: Yes Plan: Resolved. (4) Foreign body of finger of right hand Is this a current diagnosis for this admission?: Yes Plan: Noted foreign metallic object on right thumb on CT and x-ray imaging. Noted documentation that Dr. Joe brody is aware of foreign object and deems this is not a concern. (5) Gastric ulcer Is this a current diagnosis for this admission?: Yes Plan: EGD as mentioned. Pepcid switched to Protonix. - Time Time Spent with patient: 25-34 minutes
[2018-11-27] MEDS: GABAPENTIN 100 MG CAPSULE NG SCH ×3 (05:05→23:24)
--- NOTE | 2018-11-27 06:54 | PDOC PROGRESS REPORT ---
Subjective Progress Note for:: 11/27/18 Reason For Visit: SEPSIS,RIGHT HAND WOUND INFECTION,HYPONATREMIA 63-year-old white female now postop day 1 status post delayed primary closure of a right palmar wound. Patient with minimal discomfort and states that she is able to use her fingers much better. Physical Exam Vital Signs: Temp Pulse Resp BP Pulse Ox 36.2 C 80 16 123/57 L 95 11/27/18 04:00 11/27/18 04:00 11/27/18 04:00 11/27/18 04:00 11/27/18 04:00 Intake & Output 11/25/18 11/26/18 11/27/18 06:59 06:59 06:59 Intake Total 1246 1358 2815 Output Total 4200 3700 2860 Balance -2954 -2342 -45 Weight 56.7 kg 56.7 kg 56.7 kg General appearance: PRESENT: no acute distress Respiratory exam: PRESENT: unlabored Cardiovascular exam: PRESENT: RRR Extremities exam: PRESENT: other - Brisk capillary refill to each of the digits of the right hand. Patient freely moves each of the digits in flexion and extension. Results Laboratory Results: 11/25/18 15:10 11/26/18 04:30 11/04/18 11/07/18 12:32 13:47 Creatine Kinase 70 Troponin I 0.014 Impressions: Forearm X-Ray 11/04/18 10:50 IMPRESSION: Diffuse soft tissue swelling about the right thumb. There is a radiodense metallic fragment such as a needle or wire present in the pad of the right thumb. No evidence of subcutaneous emphysema; CT is more sensitive for the evaluation of subcutaneous emphysema. MRI is more sensitive for the evaluation of marrow edema and osteomyelitis. Hand X-Ray 11/04/18 10:50 IMPRESSION: Diffuse soft tissue swelling about the right thumb. There is a radiodense metallic fragment such as a needle or wire present in the pad of the right thumb. No evidence of subcutaneous emphysema; CT is more sensitive for the evaluation of subcutaneous emphysema. MRI is more sensitive for the evaluation of marrow edema and osteomyelitis. Upper Extremity CT 11/05/18 00:00 IMPRESSION: 1. LINEAR METALLIC FOREIGN OBJECT IN THE SOFT TISSUES OF THE PAD OF THE DISTAL THUMB. 2. SKIN DEFECT IN THE PALM WITH EXTENSIVE GAS EXTENDING INTO THE PALMAR SOFT TISSUES SUSPICIOUS FOR INFECTION. NO FLUID COLLECTION OR DRAINABLE ABSCESS. 3. NO SIGNIFICANT BONY FINDINGS. Finger X-Ray 11/12/18 00:00 IMPRESSION: LINEAR METALLIC FOREIGN OBJECT IN THE SOFT TISSUES OF THE DISTAL THUMB. NO CHANGE PER KUB X-Ray 11/22/18 17:41 IMPRESSION: Mild decompression of the gastric air status post nasogastric tube placement. Abdomen/Pelvis CT 11/23/18 00:00 IMPRESSION: Small bilateral pleural effusions are present with bilateral lower lobe airspace disease. Small amount of ascites. Oral contrast is seen throughout the stomach and small bowel without evidence of gastric outlet obstruction or small bowel obstruction. Status: Imported from PACS Assessment & Plan - Diagnosis (1) Infection of right hand Is this a current diagnosis for this admission?: Yes Plan: Dressing changes discussed with the nursing staff. - Time Time Spent with patient: 15-24 minutes Anticipated discharge: Other Within: Other
[2018-11-27] MEDS: ONDANSETRON HCL INJ/PF 4 MG/2 ML SDV IV PRN ×2 (08:12→18:40)
[2018-11-27] MEDS: INSULIN LISPRO 100 UNIT/ML 3 ML VIAL SUBCUT SCH ×4 (09:14→23:21)
[2018-11-27] MEDS: DOCUSATE SODIUM 100 MG/10 ML UDC NG SCH (10:40)
[2018-11-27] MEDS: ASPIRIN 81 MG TABLET, CHEWABLE NG SCH (11:01)
[2018-11-27] MEDS: FLUCONAZOLE 200 MG/NS RTU 200 MG/100 ML RTUPB IV SCH (11:01)
[2018-11-27] MEDS: PANTOPRAZOLE SODIUM 40 MG VIAL IV SCH (11:01)
[2018-11-27 13:08] LABS: ABSOLUTE BASOPHILS # (AUTO) 0.1 10^3/uL (0.0-0.2); ABSOLUTE EOSINOPHILS # (AUTO) 0.2 10^3/uL (0.0-0.6); ABSOLUTE LYMPHOCYTES (AUTO) 2.1 10^3/uL (0.5-4.7); ABSOLUTE MONOCYTES (AUTO) 0.5 10^3/uL (0.1-1.4); ABSOLUTE NEUT (AUTO) 8.4 10^3/uL (1.7-8.2); BASOPHILS % (AUTO) 0.7 % (0-2); EOSINOPHILS % (AUTO) 2.1 % (0-6); HEMATOCRIT 25.4 % (36.0-47.0); LYMPHOCYTES % (AUTO) 18.2 % (13-45); MEAN CORPUSCULAR HGB CONC 32.7 g/dL (32.0-36.0); MEAN CORPUSCULAR VOLUME 86 fl (80-97); MONOCYTES % (AUTO) 4.6 % (3-13); RED BLOOD COUNT 2.97 10^6/uL (3.72-5.28); RED CELL DISTRIBUTION WIDTH 14.2 % (11.5-14.0); SEGMENTED NEUTROPHILS % (AUTO) 74.4 % (42-78); TOTAL CELLS COUNTED % (AUTO) 100 %; WHITE BLOOD COUNT 11.3 10^3/uL (4.0-10.5)
[2018-11-27 13:11] LABS: ANION GAP 10 (5-19); BLOOD UREA NITROGEN 7 mg/dL (7-20); CALCIUM 7.5 mg/dL (8.4-10.2); CARBON DIOXIDE 27 mmol/L (22-30); CHLORIDE 95 mmol/L (98-107); GLUCOSE 163 mg/dL (75-110); POTASSIUM 4.3 mmol/L (3.6-5.0); SODIUM 131.7 mmol/L (137-145)
[2018-11-27 14:32] LABS: HEMOGLOBIN 8.3 g/dL (12.0-15.5); PLATELET COUNT 338 10^3/uL (150-450)
[2018-11-27] MEDS ORDERED: HYDROCODONE/ACETAMINOPHEN 5-325 MG TABLET PO PRN (16:32)
--- NOTE | 2018-11-27 16:42 | PDOC PROGRESS REPORT ---
Subjective Progress Note for:: 11/27/18 Subjective:: This is a 62 yr old female with a PMH of diabetes and history of bilateral lower extremity amputation who was admitted with right palmar abscess after sustaining a wound from a fall. She underwent I&D by ortho on 11/12/18. She was started initially on broad spectrum antibiotics. Her cultures came back positive for MSSA, Group B Strep and Sarahi and she was swithced to cefazolin and Micafungin per ID recommendation. She had recurrence of swelling in the area and drainage and patient underwent repeat I&D on 11/17/18. She did improve clinically but had persistent elevated WBCs. Ortho has planned for a possible 3rd debridement. Patient's course was complicated by nausea and abdominal distention. NG was placed as there was initial concern for SBO but CT of the abdomen was not suggestive of SBO. She also had a drop in her Hb requring one unit of pRBC. Her gastic occult blood was also positive. 11/26: No acute event overnight. Upon encounter this morning, she appears comfortable. She says her right hand pain continue to improve. She went for EGD today which revealed multiple gastric ulcers. She also underwent a 3rd debdridement of her right hand by ortho today. She complained of right had pain post op. 11/27: She reportedly had one episode of melanotic stool overnight. Denies abdominal pain. No nausea or vomiting. Hand pain is well controlled. Reason For Visit: SEPSIS,RIGHT HAND WOUND INFECTION,HYPONATREMIA Physical Exam Vital Signs: Temp Pulse Resp BP Pulse Ox 97.2 F 94 16 122/58 L 96 11/27/18 12:00 11/27/18 12:00 11/27/18 12:00 11/27/18 12:00 11/27/18 12:00 Intake & Output 11/26/18 11/27/18 11/28/18 06:59 06:59 06:59 Intake Total 1358 2815 1695 Output Total 3700 2860 1000 Balance -2342 -45 695 Weight 125 lb 0.034 oz 125 lb 0.034 oz General appearance: PRESENT: no acute distress, well-developed, well-nourished Head exam: PRESENT: atraumatic, normocephalic Eye exam: PRESENT: conjunctiva pink, EOMI, PERRLA. ABSENT: scleral icterus Ear exam: PRESENT: normal external ear exam Mouth exam: PRESENT: moist, tongue midline Neck exam: ABSENT: carotid bruit, JVD, lymphadenopathy, thyromegaly Respiratory exam: PRESENT: clear to auscultation marce. ABSENT: rales, rhonchi, wheezes Cardiovascular exam: PRESENT: RRR. ABSENT: diastolic murmur, rubs, systolic murmur Pulses: PRESENT: normal dorsalis pedis pul GI/Abdominal exam: PRESENT: normal bowel sounds, soft. ABSENT: distended, guarding, mass, organolmegaly, rebound, tenderness Rectal exam: PRESENT: deferred Extremities exam: PRESENT: other - dressing in place Neurological exam: PRESENT: alert, awake, oriented to person, oriented to place, oriented to time, oriented to situation, CN II-XII grossly intact. ABSENT: motor sensory deficit Results Laboratory Results: 11/27/18 12:46 11/27/18 12:46 11/27/18 11/27/18 12:46 12:46 WBC 11.3 H RBC 2.97 L Hgb 8.3 L D Hct 25.4 L MCV 86 MCH 28.0 MCHC 32.7 RDW 14.2 H Plt Count 338 Seg Neutrophils % 74.4 Lymphocytes % 18.2 Monocytes % 4.6 Eosinophils % 2.1 Basophils % 0.7 Absolute Neutrophils 8.4 H Absolute Lymphocytes 2.1 Absolute Monocytes 0.5 Absolute Eosinophils 0.2 Absolute Basophils 0.1 Sodium 131.7 L Potassium 4.3 Chloride 95 L Carbon Dioxide 27 Anion Gap 10 BUN 7 Creatinine 0.64 Est GFR ( Amer) > 60 Est GFR (Non-Af Amer) > 60 Glucose 163 H Calcium 7.5 L 11/04/18 11/07/18 12:32 13:47 Creatine Kinase 70 Troponin I 0.014 Impressions: Forearm X-Ray 11/04/18 10:50 IMPRESSION: Diffuse soft tissue swelling about the right thumb. There is a radiodense metallic fragment such as a needle or wire present in the pad of the right thumb. No evidence of subcutaneous emphysema; CT is more sensitive for the evaluation of subcutaneous emphysema. MRI is more sensitive for the evaluation of marrow edema and osteomyelitis. Hand X-Ray 11/04/18 10:50 IMPRESSION: Diffuse soft tissue swelling about the right thumb. There is a radiodense metallic fragment such as a needle or wire present in the pad of the right thumb. No evidence of subcutaneous emphysema; CT is more sensitive for the evaluation of subcutaneous emphysema. MRI is more sensitive for the evaluation of marrow edema and osteomyelitis. Upper Extremity CT 11/05/18 00:00 IMPRESSION: 1. LINEAR METALLIC FOREIGN OBJECT IN THE SOFT TISSUES OF THE PAD OF THE DISTAL THUMB. 2. SKIN DEFECT IN THE PALM WITH EXTENSIVE GAS EXTENDING INTO THE PALMAR SOFT TISSUES SUSPICIOUS FOR INFECTION. NO FLUID COLLECTION OR DRAINABLE ABSCESS. 3. NO SIGNIFICANT BONY FINDINGS. Finger X-Ray 11/12/18 00:00 IMPRESSION: LINEAR METALLIC FOREIGN OBJECT IN THE SOFT TISSUES OF THE DISTAL THUMB. NO CHANGE PER KUB X-Ray 11/22/18 17:41 IMPRESSION: Mild decompression of the gastric air status post nasogastric tube placement. Abdomen/Pelvis CT 11/23/18 00:00 IMPRESSION: Small bilateral pleural effusions are present with bilateral lower lobe airspace disease. Small amount of ascites. Oral contrast is seen throughout the stomach and small bowel without evidence of gastric outlet obstruction or small bowel obstruction. Assessment & Plan - Diagnosis (1) Abscess of right hand Is this a current diagnosis for this admission?: Yes Plan: She underwent I&D by ortho on 11/12/18. She was started initially on broad spectrum antibiotics. Her cultures came back positive for MSSA, Group B Strep and Sarahi and she was swithced to cefazolin and Micafungin per ID recommendation. Micafungin switched to diflucan by preceding provider. She had recurrence of swelling in the area and drainage and patient underwent repeat I&D on 11/17/18. She did improve clinically but had persistent elevated WBCs. S/P 3rd debdridement 11/26/18. Ortho following. [place] prn for pain. (2) Acute blood loss anemia Is this a current diagnosis for this admission?: Yes Plan: Possible upper GI source. She required 1 u of pRBC after her Hb dropped from 8.9 to 7.8. Hb has been stable since then. Gastric occult blood was positive. She underwent EGD on 11/26/18 which revealed multiple gastric ulcers with no active bleeding. Her hemoglobin has remained stable. Pepcid switched to Bev nix. 11/27: Hb trended down to 8.3. Will continue to monitor H&H. Will have GI reassess if Hb continue to trend down. (3) Hypokalemia Is this a current diagnosis for this admission?: Yes Plan: Resolved. (4) Foreign body of finger of right hand Is this a current diagnosis for this admission?: Yes Plan: Noted foreign metallic object on right thumb on CT and x-ray imaging. Noted documentation that orthoDr. Diaz is aware of foreign object and deems this is not a concern. (5) Gastric ulcer Is this a current diagnosis for this admission?: Yes Plan: EGD as mentioned. Continue IV Protonix. - Time Time Spent with patient: 25-34 minutes
[2018-11-28 05:38] LABS: ABSOLUTE BASOPHILS # (AUTO) 0.1 10^3/uL (0.0-0.2); ABSOLUTE EOSINOPHILS # (AUTO) 0.3 10^3/uL (0.0-0.6); ABSOLUTE LYMPHOCYTES (AUTO) 1.5 10^3/uL (0.5-4.7); ABSOLUTE MONOCYTES (AUTO) 0.7 10^3/uL (0.1-1.4); ABSOLUTE NEUT (AUTO) 11.5 10^3/uL (1.7-8.2); BASOPHILS % (AUTO) 0.4 % (0-2); EOSINOPHILS % (AUTO) 2.2 % (0-6); HEMOGLOBIN 9.3 g/dL (12.0-15.5); LYMPHOCYTES % (AUTO) 10.8 % (13-45); MEAN CORPUSCULAR HEMOGLOBIN 28.5 pg (27.0-33.4); MEAN CORPUSCULAR HGB CONC 33.1 g/dL (32.0-36.0); MEAN CORPUSCULAR VOLUME 86 fl (80-97); MONOCYTES % (AUTO) 4.7 % (3-13); PLATELET COUNT 473 10^3/uL (150-450); RED BLOOD COUNT 3.25 10^6/uL (3.72-5.28); RED CELL DISTRIBUTION WIDTH 14.2 % (11.5-14.0); SEGMENTED NEUTROPHILS % (AUTO) 81.9 % (42-78); TOTAL CELLS COUNTED % (AUTO) 100 %
[2018-11-28 05:57] LABS: ANION GAP 8 (5-19); BLOOD UREA NITROGEN 8 mg/dL (7-20); CALCIUM 7.8 mg/dL (8.4-10.2); CARBON DIOXIDE 32 mmol/L (22-30); CHLORIDE 94 mmol/L (98-107); GLUCOSE 267 mg/dL (75-110); POTASSIUM 4.7 mmol/L (3.6-5.0); SODIUM 134.4 mmol/L (137-145)
[2018-11-28] MEDS: GABAPENTIN 100 MG CAPSULE NG SCH ×3 (05:57→23:20)
[2018-11-28] MEDS: INSULIN LISPRO 100 UNIT/ML 3 ML VIAL SUBCUT SCH ×4 (07:40→23:20)
--- NOTE | 2018-11-28 07:43 | PDOC PROGRESS REPORT ---
Subjective Progress Note for:: 11/28/18 Subjective:: Patient states numbness tingling and pain have continued to improve. Denies fever chills or sweats. Patient states she has been able to eat more regularly with less nausea. Otherwise no complaints. Reason For Visit: SEPSIS,RIGHT HAND WOUND INFECTION,HYPONATREMIA Physical Exam Vital Signs: Temp Pulse Resp BP Pulse Ox 97.9 F 90 17 129/65 H 97 11/28/18 03:51 11/28/18 03:51 11/28/18 03:51 11/28/18 03:51 11/28/18 03:51 Intake & Output 11/27/18 11/28/18 11/29/18 06:59 06:59 06:59 Intake Total 2815 4185 Output Total 2860 3800 Balance -45 385 Weight 56.7 kg 53.5 kg Musculoskeletal exam: PRESENT: other - Right hand: Dressing change today. Mild erythema along the incision site with maceration along the wound edges. No evidence of diastases. Sutures remain intact. No palpable fluctuance. Approp riate tenderness palpation. No pain with passive stretch of the digits. Digits continue to rest and flexion of the PIP joint. 3 cm x 3 cm wound along the thenar eminence with granulation along the edges. No purulence. Hypoesthesia on the distal tips. Cap refill less than 2 seconds. Results Laboratory Results: 11/28/18 05:08 11/28/18 05:08 11/27/18 11/27/18 11/28/18 12:46 12:46 05:08 WBC 11.3 H 14.0 H RBC 2.97 L 3.25 L Hgb 8.3 L D 9.3 L Hct 25.4 L 28.0 L MCV 86 86 MCH 28.0 28.5 MCHC 32.7 33.1 RDW 14.2 H 14.2 H Plt Count 338 473 H Seg Neutrophils % 74.4 81.9 H Lymphocytes % 18.2 10.8 L Monocytes % 4.6 4.7 Eosinophils % 2.1 2.2 Basophils % 0.7 0.4 Absolute Neutrophils 8.4 H 11.5 H Absolute Lymphocytes 2.1 1.5 Absolute Monocytes 0.5 0.7 Absolute Eosinophils 0.2 0.3 Absolute Basophils 0.1 0.1 Sodium 131.7 L Potassium 4.3 Chloride 95 L Carbon Dioxide 27 Anion Gap 10 BUN 7 Creatinine 0.64 Est GFR ( Amer) > 60 Est GFR (Non-Af Amer) > 60 Glucose 163 H Calcium 7.5 L 11/28/18 05:08 WBC RBC Hgb Hct MCV MCH MCHC RDW Plt Count Seg Neutrophils % Lymphocytes % Monocytes % Eosinophils % Basophils % Absolute Neutrophils Absolute Lymphocytes Absolute Monocytes Absolute Eosinophils Absolute Basophils Sodium 134.4 L Potassium 4.7 Chloride 94 L Carbon Dioxide 32 H Anion Gap 8 BUN 8 Creatinine 0.75 Est GFR ( Amer) > 60 Est GFR (Non-Af Amer) > 60 Glucose 267 H Calcium 7.8 L 11/04/18 11/07/18 12:32 13:47 Creatine Kinase 70 Troponin I 0.014 Impressions: Forearm X-Ray 11/04/18 10:50 IMPRESSION: Diffuse soft tissue swelling about the right thumb. There is a radiodense metallic fragment such as a needle or wire present in the pad of the right thumb. No evidence of subcutaneous emphysema; CT is more sensitive for the evaluation of subcutaneous emphysema. MRI is more sensitive for the evaluation of marrow edema and osteomyelitis. Hand X-Ray 11/04/18 10:50 IMPRESSION: Diffuse soft tissue swelling about the right thumb. There is a radiodense metallic fragment such as a needle or wire present in the pad of the right thumb. No evidence of subcutaneous emphysema; CT is more sensitive for the evaluation of subcutaneous emphysema. MRI is more sensitive for the evaluation of marrow edema and osteomyelitis. Upper Extremity CT 11/05/18 00:00 IMPRESSION: 1. LINEAR METALLIC FOREIGN OBJECT IN THE SOFT TISSUES OF THE PAD OF THE DISTAL THUMB. 2. SKIN DEFECT IN THE PALM WITH EXTENSIVE GAS EXTENDING INTO THE PALMAR SOFT TISSUES SUSPICIOUS FOR INFECTION. NO FLUID COLLECTION OR DRAINABLE ABSCESS. 3. NO SIGNIFICANT BONY FINDINGS. Finger X-Ray 11/12/18 00:00 IMPRESSION: LINEAR METALLIC FOREIGN OBJECT IN THE SOFT TISSUES OF THE DISTAL THUMB. NO CHANGE PER KUB X-Ray 11/22/18 17:41 IMPRESSION: Mild decompression of the gastric air status post nasogastric tube placement. Abdomen/Pelvis CT 11/23/18 00:00 IMPRESSION: Small bilateral pleural effusions are present with bilateral lower lobe airspace disease. Small amount of ascites. Oral contrast is seen throughout the stomach and small bowel without evidence of gastric outlet obstruction or small bowel obstruction. Assessment & Plan - Diagnosis (1) Infection of right hand Is this a current diagnosis for this admission?: Yes Plan: Postop day 2 status post irrigation debridement with closure Patient will continue IV antibiotics as per infectious disease recommendation. At this point we are optimistic that the wound will heal by primary intention along the midline and secondary intention only thenar eminence. We will continue wet to dries along the thenar eminence and dry dressing changes to the mid palmar incision. Have also recommended removal of the IV and obtaining an IV in a more distant region away from the surgical site which was infected and could cause septic emboli or thrombophlebitis. If unable to obtain regional peripheral IV patient may require PICC line or central IV.
[2018-11-28] MEDS: FLUCONAZOLE 200 MG/NS RTU 200 MG/100 ML RTUPB IV SCH (10:12)
[2018-11-28] MEDS: DOCUSATE SODIUM 100 MG/10 ML UDC NG SCH (10:12)
[2018-11-28] MEDS: PANTOPRAZOLE SODIUM 40 MG VIAL IV SCH (10:13)
--- NOTE | 2018-11-28 18:17 | PDOC PROGRESS REPORT ---
Subjective Progress Note for:: 11/28/18 Subjective:: This is a 62 yr old female with a PMH of diabetes and history of bilateral lower extremity amputation who was admitted with right palmar abscess after sustaining a wound from a fall. She underwent I&D by ortho on 11/12/18. She was started initially on broad spectrum antibiotics. Her cultures came back positive for MSSA, Group B Strep and Sarahi and she was swithced to cefazolin and Micafungin per ID recommendation. She had recurrence of swelling in the area and drainage and patient underwent repeat I&D on 11/17/18. She did improve clinically but had persistent elevated WBCs. Ortho has planned for a possible 3rd debridement. Patient's course was complicated by nausea and abdominal distention. NG was placed as there was initial concern for SBO but CT of the abdomen was not suggestive of SBO. She also had a drop in her Hb requring one unit of pRBC. Her gastic occult blood was also positive. 11/26: No acute event overnight. Upon encounter this morning, she appears comfortable. She says her right hand pain continue to improve. She went for EGD today which revealed multiple gastric ulcers. She also underwent a 3rd debdridement of her right hand by ortho today. She complained of right had pain post op. 11/27: She reportedly had one episode of melanotic stool overnight. Denies abdominal pain. No nausea or vomiting. Hand pain is well controlled. 11/28: No acute issue. No recurrence of melanotic stool so far. Denies right hand pain. No chest pain or SOB. Reason For Visit: SEPSIS,RIGHT HAND WOUND INFECTION,HYPONATREMIA Physical Exam Vital Signs: Temp Pulse Resp BP Pulse Ox 98.4 F 95 16 144/80 H 100 11/28/18 15:57 11/28/18 15:57 11/28/18 15:57 11/28/18 15:57 11/28/18 15:57 Intake & Output 11/27/18 11/28/18 11/29/18 06:59 06:59 06:59 Intake Total 2815 4185 455 Output Total 2860 3800 1400 Balance -45 385 -945 Weight 125 lb 0.034 oz 117 lb 15.157 oz General appearance: PRESENT: no acute distress, well-developed, well-nourished Head exam: PRESENT: atraumatic, normocephalic Eye exam: PRESENT: conjunctiva pink, EOMI, PERRLA. ABSENT: scleral icterus Ear exam: PRESENT: normal external ear exam Mouth exam: PRESENT: moist, tongue midline Neck exam: ABSENT: carotid bruit, JVD, lymphadenopathy, thyromegaly Respiratory exam: PRESENT: clear to auscultation marce. ABSENT: rales, rhonchi, wheezes Cardiovascular exam: PRESENT: RRR. ABSENT: diastolic murmur, rubs, systolic murmur Pulses: PRESENT: normal dorsalis pedis pul GI/Abdominal exam: PRESENT: normal bowel sounds, soft. ABSENT: distended, guarding, mass, organolmegaly, rebound, tenderness Rectal exam: PRESENT: deferred Extremities exam: PRESENT: other - post op dressing in place Neurological exam: PRESENT: alert, awake, oriented to person, oriented to place, oriented to time, oriented to situation, CN II-XII grossly intact. ABSENT: motor sensory deficit Results Laboratory Results: 11/28/18 05:08 11/28/18 05:08 11/28/18 11/28/18 05:08 05:08 WBC 14.0 H RBC 3.25 L Hgb 9.3 L Hct 28.0 L MCV 86 MCH 28.5 MCHC 33.1 RDW 14.2 H Plt Count 473 H Seg Neutrophils % 81.9 H Lymphocytes % 10.8 L Monocytes % 4.7 Eosinophils % 2.2 Basophils % 0.4 Absolute Neutrophils 11.5 H Absolute Lymphocytes 1.5 Absolute Monocytes 0.7 Absolute Eosinophils 0.3 Absolute Basophils 0.1 Sodium 134.4 L Potassium 4.7 Chloride 94 L Carbon Dioxide 32 H Anion Gap 8 BUN 8 Creatinine 0.75 Est GFR ( Amer) > 60 Est GFR (Non-Af Amer) > 60 Glucose 267 H Calcium 7.8 L 11/04/18 11/07/18 12:32 13:47 Creatine Kinase 70 Troponin I 0.014 Impressions: Forearm X-Ray 11/04/18 10:50 IMPRESSION: Diffuse soft tissue swelling about the right thumb. There is a radiodense metallic fragment such as a needle or wire present in the pad of the right thumb. No evidence of subcutaneous emphysema; CT is more sensitive for the evaluation of subcutaneous emphysema. MRI is more sensitive for the evaluation of marrow edema and osteomyelitis. Hand X-Ray 11/04/18 10:50 IMPRESSION: Diffuse soft tissue swelling about the right thumb. There is a radiodense metallic fragment such as a needle or wire present in the pad of the right thumb. No evidence of subcutaneous emphysema; CT is more sensitive for the evaluation of subcutaneous emphysema. MRI is more sensitive for the evaluation of marrow edema and osteomyelitis. Upper Extremity CT 11/05/18 00:00 IMPRESSION: 1. LINEAR METALLIC FOREIGN OBJECT IN THE SOFT TISSUES OF THE PAD OF THE DISTAL THUMB. 2. SKIN DEFECT IN THE PALM WITH EXTENSIVE GAS EXTENDING INTO THE PALMAR SOFT TISSUES SUSPICIOUS FOR INFECTION. NO FLUID COLLECTION OR DRAINABLE ABSCESS. 3. NO SIGNIFICANT BONY FINDINGS. Finger X-Ray 11/12/18 00:00 IMPRESSION: LINEAR METALLIC FOREIGN OBJECT IN THE SOFT TISSUES OF THE DISTAL THUMB. NO CHANGE PER KUB X-Ray 11/22/18 17:41 IMPRESSION: Mild decompression of the gastric air status post nasogastric tube placement. Abdomen/Pelvis CT 11/23/18 00:00 IMPRESSION: Small bilateral pleural effusions are present with bilateral lower lobe airspace disease. Small amount of ascites. Oral contrast is seen throughout the stomach and small bowel without evidence of gastric outlet obstruction or small bowel obstruction. Assessment & Plan - Diagnosis (1) Abscess of right hand Is this a current diagnosis for this admission?: Yes Plan: She underwent I&D by ortho on 11/12/18. She was started initially on broad spectrum antibiotics. Her cultures came back positive for MSSA, Group B Strep and Sarahi and she was swithced to cefazolin and Micafungin per ID recommendation. Micafungin switched to diflucan by preceding provider. She had recurrence of swelling in the area and drainage and patient underwent repeat I&D on 11/17/18. She did improve clinically but had persistent elevated WBCs. S/P 3rd debdridement 11/26/18. Ortho following. [place] prn for pain. (2) Acute blood loss anemia Is this a current diagnosis for this admission?: Yes Plan: Possible upper GI source. She required 1 u of pRBC after her Hb dropped from 8.9 to 7.8. Hb has been stable since then. Gastric occult blood was positive. She underwent EGD on 11/26/18 which revealed multiple gastric ulcers with no active bleeding. Her hemoglobin has remained stable. Pepcid switched to Protonix. 11/27: Hb trended down to 8.3. Will continue to monitor H&H. Will have GI reassess if Hb continue to trend down. 11/28: No recurrence of melena. Hb is stable. (3) Hypokalemia Is this a current diagnosis for this admission?: Yes Plan: Resolved. (4) Foreign body of finger of right hand Is this a current diagnosis for this admission?: Yes Plan: Noted foreign metallic object on right thumb on CT and x-ray imaging. Noted documentation that orthoDr. Diaz is aware of foreign object and deems this is not a concern. (5) Gastric ulcer Is this a current diagnosis for this admission?: Yes Plan: EGD as mentioned. Continue IV Protonix. - Time Time Spent with patient: 25-34 minutes
[2018-11-29] MEDS: GABAPENTIN 100 MG CAPSULE NG SCH ×3 (06:25→21:58)
--- NOTE | 2018-11-29 07:18 | PDOC PROGRESS REPORT ---
Subjective Progress Note for:: 11/29/18 Reason For Visit: SEPSIS,RIGHT HAND WOUND INFECTION,HYPONATREMIA Right hand abscess status post I&D x3 Physical Exam Vital Signs: Temp Pulse Resp BP Pulse Ox 36.5 C 90 19 128/60 H 94 11/28/18 23:11 11/29/18 02:00 11/28/18 23:11 11/28/18 23:11 11/28/18 23:11 Intake & Output 11/28/18 11/29/18 11/30/18 06:59 06:59 06:59 Intake Total 4185 1415 Output Total 3800 4970 Balance 385 -0435 Weight 53.5 kg 51.5 kg General appearance: PRESENT: no acute distress Extremities exam: PRESENT: other - Right hand dressing is taken down today. The palmar incision is well approximated with sutures loosely. There continues to be erythema and induration about the palm. There is much improved active range of motion of the thumb and 4 fingers. There is brisk capillary refill subungually. Results Laboratory Results: 11/28/18 05:08 11/28/18 05:08 11/04/18 11/07/18 12:32 13:47 Creatine Kinase 70 Troponin I 0.014 Impressions: Forearm X-Ray 11/04/18 10:50 IMPRESSION: Diffuse soft tissue swelling about the right thumb. There is a radiodense metallic fragment such as a needle or wire present in the pad of the right thumb. No evidence of subcutaneous emphysema; CT is more sensitive for the evaluation of subcutaneous emphysema. MRI is more sensitive for the evaluation of marrow edema and osteomyelitis. Hand X-Ray 11/04/18 10:50 IMPRESSION: Diffuse soft tissue swelling about the right thumb. There is a radiodense metallic fragment such as a needle or wire present in the pad of the right thumb. No evidence of subcutaneous emphysema; CT is more sensitive for the evaluation of subcutaneous emphysema. MRI is more sensitive for the evaluation of marrow edema and osteomyelitis. Upper Extremity CT 11/05/18 00:00 IMPRESSION: 1. LINEAR METALLIC FOREIGN OBJECT IN THE SOFT TISSUES OF THE PAD OF THE DISTAL THUMB. 2. SKIN DEFECT IN THE PALM WITH EXTENSIVE GAS EXTENDING INTO THE PALMAR SOFT TISSUES SUSPICIOUS FOR INFECTION. NO FLUID COLLECTION OR DRAINABLE ABSCESS. 3. NO SIGNIFICANT BONY FINDINGS. Finger X-Ray 11/12/18 00:00 IMPRESSION: LINEAR METALLIC FOREIGN OBJECT IN THE SOFT TISSUES OF THE DISTAL THUMB. NO CHANGE PER KUB X-Ray 11/22/18 17:41 IMPRESSION: Mild decompression of the gastric air status post nasogastric tube placement. Abdomen/Pelvis CT 11/23/18 00:00 IMPRESSION: Small bilateral pleural effusions are present with bilateral lower lobe airspace disease. Small amount of ascites. Oral contrast is seen throughout the stomach and small bowel without evidence of gastric outlet obstruction or small bowel obstruction. Status: Imported from PACS Assessment & Plan - Diagnosis (1) Infection of right hand Is this a current diagnosis for this admission?: Yes Plan: Continue dressing changes and observation - Time Time Spent with patient: 15-24 minutes Anticipated discharge: SNF Within: Other
[2018-11-29] MEDS: INSULIN LISPRO 100 UNIT/ML 3 ML VIAL SUBCUT SCH ×4 (08:05→21:58)
[2018-11-29] MEDS: PANTOPRAZOLE SODIUM 40 MG VIAL IV SCH (09:32)
[2018-11-29] MEDS: DOCUSATE SODIUM 100 MG/10 ML UDC NG SCH (09:32)
--- NOTE | 2018-11-29 14:58 | PDOC PROGRESS REPORT ---
Subjective Progress Note for:: 11/29/18 Subjective:: This is a 62 yr old female with a PMH of diabetes and history of bilateral lower extremity amputation who was admitted with right palmar abscess after sustaining a wound from a fall. She underwent I&D by ortho on 11/12/18. She was started initially on broad spectrum antibiotics. Her cultures came back positive for MSSA, Group B Strep and Sarahi and she was swithced to cefazolin and Micafungin per ID recommendation. She had recurrence of swelling in the area and drainage and patient underwent repeat I&D on 11/17/18. She did improve clinically but had persistent elevated WBCs. Ortho has planned for a possible 3rd debridement. Patient's course was complicated by nausea and abdominal distention. NG was placed as there was initial concern for SBO but CT of the abdomen was not suggestive of SBO. She also had a drop in her Hb requring one unit of pRBC. Her gastic occult blood was also positive. 11/26: No acute event overnight. Upon encounter this morning, she appears comfortable. She says her right hand pain continue to improve. She went for EGD today which revealed multiple gastric ulcers. She also underwent a 3rd debdridement of her right hand by ortho today. She complained of right had pain post op. 11/27: She reportedly had one episode of melanotic stool overnight. Denies abdominal pain. No nausea or vomiting. Hand pain is well controlled. 11/28: No recurrence of melanotic stool so far. Denies right hand pain. No chest pain or SOB. 2: No acute event overnight. She had a BM with no recurrence of melena. She denies pain on the right hand. Examined right hand this morning. There is slight erythema around the debdrided and sutured wound but no drainage. Reason For Visit: SEPSIS,RIGHT HAND WOUND INFECTION,HYPONATREMIA Physical Exam Vital Signs: Temp Pulse Resp BP Pulse Ox 98.0 F 87 16 104/66 98 11/29/18 12:00 11/29/18 12:00 11/29/18 12:00 11/29/18 12:11/29/18 12:00 Intake & Output 11/28/18 11/29/18 11/30/18 06:59 06:59 06:59 Intake Total 4185 1415 459 Output Total 3800 4970 Balance 385 -3555 459 Weight 117 lb 15.157 oz 113 lb 8.609 oz General appearance: PRESENT: no acute distress, well-developed, well-nourished Head exam: PRESENT: atraumatic, normocephalic Eye exam: PRESENT: conjunctiva pink, EOMI, PERRLA. ABSENT: scleral icterus Ear exam: PRESENT: normal external ear exam Mouth exam: PRESENT: moist, tongue midline Neck exam: ABSENT: carotid bruit, JVD, lymphadenopathy, thyromegaly Respiratory exam: PRESENT: clear to auscultation marce. ABSENT: rales, rhonchi, wheezes Cardiovascular exam: PRESENT: RRR. ABSENT: diastolic murmur, rubs, systolic murmur Pulses: PRESENT: normal dorsalis pedis pul GI/Abdominal exam: PRESENT: normal bowel sounds, soft. ABSENT: distended, guarding, mass, organolmegaly, rebound, tenderness Rectal exam: PRESENT: deferred Extremities exam: PRESENT: other - Right hand: There is slight erythema around the debdrided and sutured wound but no drainage. Neurological exam: PRESENT: alert, awake, oriented to person, oriented to place, oriented to time, oriented to situation, CN II-XII grossly intact. ABSENT: motor sensory deficit Results Laboratory Results: 11/28/18 05:08 11/28/18 05:08 11/04/18 11/07/18 12:32 13:47 Creatine Kinase 70 Troponin I 0.014 Impressions: Forearm X-Ray 11/04/18 10:50 IMPRESSION: Diffuse soft tissue swelling about the right thumb. There is a radiodense metallic fragment such as a needle or wire present in the pad of the right thumb. No evidence of subcutaneous emphysema; CT is more sensitive for the evaluation of subcutaneous emphysema. MRI is more sensitive for the evaluation of marrow edema and osteomyelitis. Hand X-Ray 11/04/18 10:50 IMPRESSION: Diffuse soft tissue swelling about the right thumb. There is a radiodense metallic fragment such as a needle or wire present in the pad of the right thumb. No evidence of subcutaneous emphysema; CT is more sensitive for the evaluation of subcutaneous emphysema. MRI is more sensitive for the evaluation of marrow edema and osteomyelitis. Upper Extremity CT 11/05/18 00:00 IMPRESSION: 1. LINEAR METALLIC FOREIGN OBJECT IN THE SOFT TISSUES OF THE PAD OF THE DISTAL THUMB. 2. SKIN DEFECT IN THE PALM WITH EXTENSIVE GAS EXTENDING INTO THE PALMAR SOFT TISSUES SUSPICIOUS FOR INFECTION. NO FLUID COLLECTION OR DRAINABLE ABSCESS. 3. NO SIGNIFICANT BONY FINDINGS. Finger X-Ray 11/12/18 00:00 IMPRESSION: LINEAR METALLIC FOREIGN OBJECT IN THE SOFT TISSUES OF THE DISTAL TH UMB. NO CHANGE PER KUB X-Ray 11/22/18 17:41 IMPRESSION: Mild decompression of the gastric air status post nasogastric tube placement. Abdomen/Pelvis CT 11/23/18 00:00 IMPRESSION: Small bilateral pleural effusions are present with bilateral lower lobe airspace disease. Small amount of ascites. Oral contrast is seen throughout the stomach and small bowel without evidence of gastric outlet obstruction or small bowel obstruction. Assessment & Plan - Diagnosis (1) Abscess of right hand Is this a current diagnosis for this admission?: Yes Plan: She underwent I&D by ortho on 11/12/18. She was started initially on broad spect rum antibiotics. Her cultures came back positive for MSSA, Group B Strep and Sarahi and she was swithced to cefazolin and Micafungin per ID recommendation. Micafungin switched to diflucan by preceding provider. She had recurrence of swelling in the area and drainage and patient underwent repeat I&D on 11/17/18. She did improve clinically but had persistent elevated WBCs. S/P 3rd debdridement 11/26/18. Ortho following. [place] prn for pain. 2/2: Discussed with ortho. They recommend reassessment in the next 2 days. Continue IV Ancef until cleared by orthopedic surgeon. (2) Acute blood loss anemia Is this a current diagnosis for this admission?: Yes Plan: Possible upper GI source. She required 1 u of pRBC after her Hb dropped from 8.9 to 7.8. Hb has been stable since then. Gastric occult blood was positive. She underwent EGD on 11/26/18 which revealed multiple gastric ulcers with no active bleeding. Her hemoglobin has remained stable. Pepcid switched to Protonix. 11/27: Hb trended down to 8.3. Will continue to monitor H&H. Will have GI reassess if Hb continue to trend down. 2/2: No recurrence of melena. Hb is stable. Continue Protonix. (3) Hypokalemia Is this a current diagnosis for this admission?: Yes Plan: Resolved. (4) Foreign body of finger of right hand Is this a current diagnosis for this admission?: Yes Plan: Noted foreign metallic object on right thumb on CT and x-ray imaging. Noted documentation that orthoDr. Diaz is aware of foreign object and deems this is not a concern. (5) Gastric ulcer Is this a current diagnosis for this admission?: Yes Plan: EGD results as mentioned. Continue Protonix. - Time Time Spent with patient: 25-34 minutes
[2018-11-29] MEDS: CEFAZOLIN 1 GM/D5W RTU 1 GM/50 ML RTUPB IV SCH (16:15)
[2018-11-29] MEDS: LACTOBACILLUS ACIDOPHILUS 250 MG TAB PO SCH (17:59)
[2018-11-30] MEDS: CEFAZOLIN 1 GM/D5W RTU 1 GM/50 ML RTUPB IV SCH ×3 (02:25→17:32)
[2018-11-30] MEDS: GABAPENTIN 100 MG CAPSULE NG SCH ×3 (06:02→22:04)
--- NOTE | 2018-11-30 07:18 | PDOC PROGRESS REPORT ---
Subjective Progress Note for:: 11/30/18 Reason For Visit: SEPSIS,RIGHT HAND WOUND INFECTION,HYPONATREMIA Right hand infection status post I&D x3 with a loose delayed primary closure of the wound. No interim events noted. Physical Exam Vital Signs: Temp Pulse Resp BP Pulse Ox 36.9 C 85 17 117/55 L 98 11/29/18 20:59 11/30/18 02:00 11/29/18 20:59 11/29/18 20:59 11/29/18 20:59 Intake & Output 11/29/18 11/30/18 12/01/18 06:59 06:59 06:59 Intake Total 1415 2059 Output Total 4973 0493 Balance -6894 -532 Weight 51.5 kg 49.9 kg General appearance: PRESENT: no acute distress Respiratory exam: PRESENT: unlabored Cardiovascular exam: PRESENT: irregular rhythm Vascular exam: PRESENT: normal capillary refill Extremities exam: PRESENT: other - Active range of motion of the digits of the right upper extremity without pain. Results Laboratory Results: 11/28/18 05:08 11/28/18 05:08 11/04/18 11/07/18 12:32 13:47 Creatine Kinase 70 Troponin I 0.014 Impressions: Forearm X-Ray 11/04/18 10:50 IMPRESSION: Diffuse soft tissue swelling about the right thumb. There is a radiodense metallic fragment such as a needle or wire present in the pad of the right thumb. No evidence of subcutaneous emphysema; CT is more sensitive for the evaluation of subcutaneous emphysema. MRI is more sensitive for the evaluat ion of marrow edema and osteomyelitis. Hand X-Ray 11/04/18 10:50 IMPRESSION: Diffuse soft tissue swelling about the right thumb. There is a radiodense metallic fragment such as a needle or wire present in the pad of the right thumb. No evidence of subcutaneous emphysema; CT is more sensitive for the evaluation of subcutaneous emphysema. MRI is more sensitive for the evaluation of marrow edema and osteomyelitis. Upper Extremity CT 11/05/18 00:00 IMPRESSION: 1. LINEAR METALLIC FOREIGN OBJECT IN THE SOFT TISSUES OF THE PAD OF THE DISTAL THUMB. 2. SKIN DEFECT IN THE PALM WITH EXTENSIVE GAS EXTENDING INTO THE PALMAR SOFT TISSUES SUSPICIOUS FOR INFECTION. NO FLUID COLLECTION OR DRAINABLE ABSCESS. 3. NO SIGNIFICANT BONY FINDINGS. Finger X-Ray 11/12/18 00:00 IMPRESSION: LINEAR METALLIC FOREIGN OBJECT IN THE SOFT TISSUES OF THE DISTAL THUMB. NO CHANGE PER KUB X-Ray 11/22/18 17:41 IMPRESSION: Mild decompression of the gastric air status post nasogastric tube placement. Abdomen/Pelvis CT 11/23/18 00:00 IMPRESSION: Small bilateral pleural effusions are present with bilateral lower lobe airspace disease. Small amount of ascites. Oral contrast is seen throughout the stomach and small bowel without evidence of gastric outlet obstruction or small bowel obstruction. Status: Imported from PACS Assessment & Plan - Diagnosis (1) Infection of right hand Is this a current diagnosis for this admission?: Yes Plan: Plan for discharge home tomorrow. Will discuss recommendations for antibiotic coverage with Dr. rivers prior to discharge. - Time Time Spent with patient: 15-24 minutes Anticipated discharge: Home with Homehealth Within: within 24 hours
[2018-11-30] MEDS: INSULIN LISPRO 100 UNIT/ML 3 ML VIAL SUBCUT SCH ×4 (08:48→22:04)
[2018-11-30 09:58] LABS: ABSOLUTE BASOPHILS # (AUTO) 0.1 10^3/uL (0.0-0.2); ABSOLUTE EOSINOPHILS # (AUTO) 0.2 10^3/uL (0.0-0.6); ABSOLUTE LYMPHOCYTES (AUTO) 1.8 10^3/uL (0.5-4.7); ABSOLUTE MONOCYTES (AUTO) 0.4 10^3/uL (0.1-1.4); ABSOLUTE NEUT (AUTO) 7.9 10^3/uL (1.7-8.2); BASOPHILS % (AUTO) 0.5 % (0-2); EOSINOPHILS % (AUTO) 2.2 % (0-6); HEMATOCRIT 29.6 % (36.0-47.0); LYMPHOCYTES % (AUTO) 17.6 % (13-45); MEAN CORPUSCULAR HGB CONC 33.8 g/dL (32.0-36.0); MEAN CORPUSCULAR VOLUME 86 fl (80-97); PLATELET COUNT 538 10^3/uL (150-450); RED BLOOD COUNT 3.45 10^6/uL (3.72-5.28); RED CELL DISTRIBUTION WIDTH 14.4 % (11.5-14.0); SEGMENTED NEUTROPHILS % (AUTO) 75.7 % (42-78); TOTAL CELLS COUNTED % (AUTO) 100 %; WHITE BLOOD COUNT 10.4 10^3/uL (4.0-10.5)
[2018-11-30 10:17] LABS: ANION GAP 10 (5-19); BLOOD UREA NITROGEN 16 mg/dL (7-20); CALCIUM 8.5 mg/dL (8.4-10.2); CARBON DIOXIDE 29 mmol/L (22-30); CHLORIDE 93 mmol/L (98-107); GLUCOSE 285 mg/dL (75-110); POTASSIUM 4.3 mmol/L (3.6-5.0)
[2018-11-30] MEDS: DOCUSATE SODIUM 100 MG/10 ML UDC NG SCH (10:27)
[2018-11-30] MEDS: LACTOBACILLUS ACIDOPHILUS 250 MG TAB PO SCH ×2 (10:27→17:31)
--- NOTE | 2018-11-30 13:00 | PDOC PROGRESS REPORT ---
Subjective Progress Note for:: 11/30/18 Subjective:: This is a 62 yr old female with a PMH of diabetes and history of bilateral lower extremity amputation who was admitted with right palmar abscess after sustaining a wound from a fall. She underwent I&D by ortho on 11/12/18. She was started initially on broad spectrum antibiotics. Her cultures came back positive for MSSA, Group B Strep and Sarahi and she was swithced to cefazolin and Micafungin per ID recommendation. She had recurrence of swelling in the area and drainage and patient underwent repeat I&D on 11/17/18. She did improve clinically but had persistent elevated WBCs. Ortho has planned for a possible 3rd debridement. Patient's course was complicated by nausea and abdominal distention. NG was placed as there was initial concern for SBO but CT of the abdomen was not suggestive of SBO. She also had a drop in her Hb requring one unit of pRBC. Her gastic occult blood was also positive. 11/26: No acute event overnight. Upon encounter this morning, she appears comfortable. She says her right hand pain continue to improve. She went for EGD today which revealed multiple gastric ulcers. She also underwent a 3rd debdridement of her right hand by ortho today. She complained of right had pain post op. 11/27: She reportedly had one episode of melanotic stool overnight. Denies abdominal pain. No nausea or vomiting. Hand pain is well controlled. 11/28: No recurrence of melanotic stool so far. Denies right hand pain. No chest pain or SOB. 2: She had a BM with no recurrence of melena. She denies pain on the right hand. Examined right hand this morning. There is slight erythema around the debdrided and sutured wound but no drainage. 3: No acute event overnight. No recurrence of melena. No abdominal pain. Denies pain on right hand. She has been doing well. Await final reassessment from ortho tomorrow. Will discharge home after clearance from surgeon tomorrow. Reason For Visit: SEPSIS,RIGHT HAND WOUND INFECTION,HYPONATREMIA Physical Exam Vital Signs: Temp Pulse Resp BP Pulse Ox 98.5 F 93 17 118/58 L 96 11/30/18 12:17 11/30/18 12:17 11/30/18 12:17 11/30/18 12:17 11/30/18 12:17 Intake & Output 11/29/18 11/30/18 12/01/18 06:59 06:59 06:59 Intake Total 1415 2059 Output Total 6254 4937 Balance -9522 -110 Weight 113 lb 8.609 oz 110 lb 0.171 oz General appearance: PRESENT: no acute distress, well-developed, well-nourished Head exam: PRESENT: atraumatic, normocephalic Eye exam: PRESENT: conjunctiva pink, EOMI, PERRLA. ABSENT: scleral icterus Ear exam: PRESENT: normal external ear exam Mouth exam: PRESENT: moist, tongue midline Neck exam: ABSENT: carotid bruit, JVD, lymphadenopathy, thyromegaly Respiratory exam: PRESENT: clear to auscultation marce. ABSENT: rales, rhonchi, wheezes Cardiovascular exam: PRESENT: RRR. ABSENT: diastolic murmur, rubs, systolic murmur Pulses: PRESENT: normal dorsalis pedis pul GI/Abdominal exam: PRESENT: normal bowel sounds, soft. ABSENT: distended, guarding, mass, organolmegaly, rebound, tenderness Rectal exam: PRESENT: deferred Musculoskeletal exam: PRESENT: other - dressing in place Neurological exam: PRESENT: alert, awake, oriented to person, oriented to place, oriented to time Results Laboratory Results: 11/30/18 09:19 11/30/18 09:19 11/30/18 11/30/18 09:19 09:19 WBC 10.4 RBC 3.45 L Hgb 10.0 L Hct 29.6 L MCV 86 MCH 29.0 MCHC 33.8 RDW 14.4 H Plt Count 538 H Seg Neutrophils % 75.7 Lymphocytes % 17.6 Monocytes % 4.0 Eosinophils % 2.2 Basophils % 0.5 Absolute Neutrophils 7.9 Absolute Lymphocytes 1.8 Absolute Monocytes 0.4 Absolute Eosinophils 0.2 Absolute Basophils 0.1 Sodium 132.0 L Potassium 4.3 Chloride 93 L Carbon Dioxide 29 Anion Gap 10 BUN 16 Creatinine 0.88 Est GFR ( Amer) > 60 Est GFR (Non-Af Amer) > 60 Glucose 285 H Calcium 8.5 11/04/18 11/07/18 12:32 13:47 Creatine Kinase 70 Troponin I 0.014 Impressions: Forearm X-Ray 11/04/18 10:50 IMPRESSION: Diffuse soft tissue swelling about the right thumb. There is a radiodense metallic fragment such as a needle or wire present in the pad of the right thumb. No evidence of subcutaneous emphysema; CT is more sensitive for the evaluation of subcutaneous emphysema. MRI is more sensitive for the evaluation of marrow edema and osteomyelitis. Hand X-Ray 11/04/18 10:50 IMPRESSION: Diffuse soft tissue swelling about the right thumb. There is a radiodense metallic fragment such as a needle or wire present in the pad of the right thumb. No evidence of subcutaneous emphysema; CT is more sensitive for the evaluation of subcutaneous emphysema. MRI is more sensitive for the evaluation of marrow edema and osteomyelitis. Upper Extremity CT 11/05/18 00:00 IMPRESSION: 1. LINEAR METALLIC FOREIGN OBJECT IN THE SOFT TISSUES OF THE PAD OF THE DISTAL THUMB. 2. SKIN DEFECT IN THE PALM WITH EXTENSIVE GAS EXTENDING INTO THE PALMAR SOFT TISSUES SUSPICIOUS FOR INFECTION. NO FLUID COLLECTION OR DRAINABLE ABSCESS. 3. NO SIGNIFICANT BONY FINDINGS. Finger X-Ray 11/12/18 00:00 IMPRESSION: LINEAR METALLIC FOREIGN OBJECT IN THE SOFT TISSUES OF THE DISTAL THUMB. NO CHANGE PER KUB X-Ray 11/22/18 17:41 IMPRESSION: Mild decompression of the gastric air status post nasogastric tube placement. Abdomen/Pelvis CT 11/23/18 00:00 IMPRESSION: Small bilateral pleural effusions are present with bilateral lower lobe airspace disease. Small amount of ascites. Oral contrast is seen throughout the stomach and small bowel without evidence of gastric outlet obstruction or small bowel obstruction. Assessment & Plan - Diagnosis (1) Abscess of right hand Is this a current diagnosis for this admission?: Yes Plan: She underwent I&D by ortho on 11/12/18. She was started initially on broad spectrum antibiotics. Her cultures came back positive for MSSA, Group B Strep and Sarahi and she was swithced to cefazolin and Micafungin per ID recommendation. Micafungin switched to diflucan by preceding provider. She had recurrence of swelling in the area and drainage and patient underwent repeat I&D on 11/17/18. She did improve clinically but had persistent elevated WBCs. S/P 3rd debdridement 11/26/18. Ortho following. [place] prn for pain. 2/2: Discussed with ortho. They recommend reassessment in the next 2 days. Continue IV Ancef until cleared by orthopedic surgeon. 2/3: Await final reassessment from ortho tomorrow. Will discharge home after clearance from surgeon tomorrow. (2) Acute blood loss anemia Is this a current diagnosis for this admission?: Yes Plan: Possible upper GI source. She required 1 u of pRBC after her Hb dropped from 8.9 to 7.8. Hb has been stable since then. Gastric occult blood was positive. She underwent EGD on 11/26/18 which revealed multiple gastric ulcers with no a ctive bleeding. Her hemoglobin has remained stable. Pepcid switched to Protonix. 11/27: Hb trended down to 8.3. Will continue to monitor H&H. Will have GI reassess if Hb continue to trend down. 11/30: No recurrence of melena. Hb is stable. Continue Protonix. (3) Hypokalemia Is this a current diagnosis for this admission?: Yes Plan: Resolved. (4) Foreign body of finger of right hand Is this a current diagnosis for this admission?: Yes Plan: Noted foreign metallic object on right thumb on CT and x-ray imaging. Noted documentation that Dr. Joe brody is aware of foreign object and deems this is not a concern. (5) Gastric ulcer Is this a current diagnosis for this admission?: Yes Plan: EGD results as mentioned. Continue Protonix. - Time Time Spent with patient: 15-24 minutes
[2018-12-01] MEDS: CEFAZOLIN 1 GM/D5W RTU 1 GM/50 ML RTUPB IV SCH ×3 (02:02→17:02)
[2018-12-01] MEDS: GABAPENTIN 100 MG CAPSULE NG SCH ×2 (06:23→14:06)
[2018-12-01] MEDS: INSULIN LISPRO 100 UNIT/ML 3 ML VIAL SUBCUT SCH ×3 (08:01→17:04)
[2018-12-01] MEDS: DOCUSATE SODIUM 100 MG/10 ML UDC NG SCH (09:43)
[2018-12-01] MEDS: ASPIRIN 81 MG TABLET, CHEWABLE NG SCH (09:43)
[2018-12-01] MEDS: LACTOBACILLUS ACIDOPHILUS 250 MG TAB PO SCH ×2 (09:43→17:04)
--- NOTE | 2018-12-01 14:46 | Progress Note ---
Provider Note Provider Note: ID Consult Note Asked by Dr Andrade to review patient's chart. Pt not seen or examined. Ms. Tan is a 63 year old woman who had R hand infection with a polymicrobial palmar horseshoe abscess (MSSA, Group B Strep, Sarahi species) that required repeat I&D. The most recent culture from her hand was obtained on 11/17 when she returned to the OR and had necrotic tissue debrided and grew Sarahi albicans. Although pt had another Sarahi species identified at the first debridement, it was not recovered subsequently. Tissue submitted to pathology at this time was reported as having necrosis and acute inflammation. On 11/26, she was taken to the OR for I&D and delayed primary closure. Pt received a dose of Rocephin on 11/04, then IV vancomycin from 11/05-11/11, then cefazolin from 11/11-11/25 and from 11/29 to present (approaching 4 weeks). She also received micafungin from 11/11- 11/18, then fluconazole from 11/21 to 11/28 (approaching 3 weeks). She is approaching discharge and has been recommended by her surgeon to continue antimicrobials as an outpatient. Impression/Recommendations PO Keflex 500 mg QID or cefadroxil 500 mg BID would be appropriate for soft tissue infection due to Group B Strep and MSSA and, for Sarahi albicans, fluconazole 400 mg PO daily. Generally, soft tissue infections should not require a prolonged course of therapy - in the range 5-14 days usually, depending on source control and response. If there is concern that she has not had adequate source control as indicated by the continued need for debridement the last time she was taken to the OR on 11/26, continuing for another week or two and reassessing response is a reasonable course of action. Alexander Workman MD [facility] Infectious Diseaes pager [phone]
--- NOTE | 2018-12-01 16:37 | PDOC DISCHARGE SUMMARY ---
General - Admit/Disc Date/PCP Admission Date/Primary Care Provider: 11/04/18 16:50 Discharge Date: 12/01/18 - Discharge Diagnosis (1) Abscess of right hand Is this a current diagnosis for this admission?: Yes (2) Acute blood loss anemia Is this a current diagnosis for this admission?: Yes (3) Hypokalemia Is this a current diagnosis for this admission?: Yes (4) Foreign body of finger of right hand Is this a current diagnosis for this admission?: Yes (5) Gastric ulcer Is this a current diagnosis for this admission?: Yes - Additional Information Resuscitation Status: Full Code Prescriptions: Cephalexin Monohydrate [Keflex 500 mg Capsule] 500 mg PO BID #14 capsule Fluconazole [Diflucan] 200 mg PO DAILY #7 tablet Lactobacillus Acidophilus [Bacid 250 mg Tablet] 250 mg PO BID #10 tab Pantoprazole Sodium [Protonix] 40 mg PO QAM #30 tablet. Home Medications: Aspirin [Adult Low Dose Aspirin EC] 81 mg PO DAILY 11/04/18 Insulin Glargine,Hum.rec.anlog [Lantus Insulin 100 Unit/mL] 20 unit SUBCUT QHS 11/04/18 Insulin Lispro [Humalog Insulin (Lispro) 100 unit/mL] 0 units SQ .PERSLIDINGSCALE 11/04/18 Cephalexin Monohydrate [Keflex 500 mg Capsule] 500 mg PO BID #14 capsule 12/01/18 Fluconazole [Diflucan] 200 mg PO DAILY #7 tablet 12/01/18 Lactobacillus Acidophilus [Bacid 250 mg Tablet] 250 mg PO BID #10 tab 12/01/18 Pantoprazole Sodium [Protonix] 40 mg PO QAM #30 tablet. 12/01/18 History of Present Illness History of Present Illness: Admitting hospitalist's H&P: RAMAN MANCIA is a 62 year old female with a past medical history of diabetes and bilateral lower extremity amputation, who presented to the ED complaining of right hand pain. Patient states that she fell 3-4 days ago while she slipped out of the couch and hurt her hand and hence she came to the ER today because her pain was unbearable. Patient states that she did not have LOC and just slipped forward and tried to break her fall by using her hands. States she stayed at home and tried to take care of her pain on her own but the pain was getting worse. She denies fevers chills, shortness of breath, chest pain, a bdominal pain, nausea/vomiting or dizziness. She also has a wound on her right palm of her hand which she states has been there for weeks now. I asked her if she followed up with her doctor regarding this wound and she states no. In the ED she received IV antibiotics with Rocephin and Vanco. ED physician also contacted orthopedist regarding the hand wound. Hospital Course Hospital Course: This is a 62 yr old female with a PMH of diabetes and history of bilateral lower extremity amputation who was admitted with right palmar abscess after sustaining a wound from a fall. She underwent I&D by ortho on 11/12/18. She was started initially on broad spectr um antibiotics. Her cultures came back positive for MSSA, Group B Strep and Sarahi and she was swithced to cefazolin and Micafungin per ID recommendation. She had recurrence of swelling in the area and drainage and patient underwent repeat I&D on 11/17/18. She did improve clinically but had persistent elevated WBCs. Ortho has planned for a possible 3rd debridement. Patient's course was complicated by nausea and abdominal distention. NG was placed as there was initial concern for SBO but CT of the abdomen was not suggestive of SBO. She also had a drop in her Hb requring one unit of pRBC. Her gastic occult blood was also positive. She went for EGD today which revealed multiple gastric ulcers with no active bleeding and also also underwent a 3rd debdridement of her right hand and closure of primary wound by ortho on 11/26. she was started on Protonix. Patient's course was prolonged basically because of need for repeated debridement. She continued to improve. Discussed with Dr. Diaz and Dr. Workman on day of discharge. Patient will be prescribed 7 more days of Keflex and Diflucan with reassessment by ortho after 7 days to see if there is need to continue antibiotics. She has a confirmed appt with Dr. Diaz on last day of antibiotics. Note probiotics were added to her regimen as she has been on prolonged antibiotic therapy. Physical Exam Vital Signs: Temp Pulse Resp BP Pulse Ox 98.3 F 88 18 133/71 H 99 12/01/18 11:39 12/01/18 11:39 12/01/18 11:39 12/01/18 11:39 12/01/18 11:39 Intake & Output 11/30/18 12/01/18 12/02/18 06:59 06:59 06:59 Intake Total 9 1070 50 Output Total 2720 5000 Balance -704 -5209 50 Weight 110 lb 0.171 oz 111 lb 15.917 oz General appearance: PRESENT: no acute distress, well-developed, well-nourished Head exam: PRESENT: atraumatic, normocephalic Eye exam: PRESENT: conjunctiva pink, EOMI, PERRLA. ABSENT: scleral icterus Ear exam: PRESENT: normal external ear exam Mouth exam: PRESENT: moist, tongue midline Neck exam: ABSENT: carotid bruit, JVD, lymphadenopathy, thyromegaly Respiratory exam: PRESENT: clear to auscultation marce. ABSENT: rales, rhonchi, wheezes Cardiovascular exam: PRESENT: RRR. ABSENT: diastolic murmur, rubs, systolic murmur Pulses: PRESENT: normal dorsalis pedis pul GI/Abdominal exam: PRESENT: normal bowel sounds, soft. ABSENT: distended, guarding, mass, organolmegaly, rebound, tenderness Rectal exam: PRESENT: deferred Extremities exam: PRESENT: other - slight erythema around the debdrided and sutured wound has improved with no drainage. Neurological exam: PRESENT: alert, awake, oriented to person, oriented to place, oriented to time, oriented to situation, CN II-XII grossly intact. ABSENT: motor sensory deficit Results Laboratory Results: 11/30/18 09:19 11/30/18 09:19 11/04/18 11/07/18 12:32 13:47 Creatine Kinase 70 Troponin I 0.014 Impressions: Forearm X-Ray 11/04/18 10:50 IMPRESSION: Diffuse soft tissue swelling about the right thumb. There is a radiodense metallic fragment such as a needle or wire present in the pad of the right thumb. No evidence of subcutaneous emphysema; CT is more sensitive for the evaluation of subcutaneous emphysema. MRI is more sensitive for the evalua tion of marrow edema and osteomyelitis. Hand X-Ray 11/04/18 10:50 IMPRESSION: Diffuse soft tissue swelling about the right thumb. There is a radiodense metallic fragment such as a needle or wire present in the pad of the right thumb. No evidence of subcutaneous emphysema; CT is more sensitive for the evaluation of subcutaneous emphysema. MRI is more sensitive for the evaluation of marrow edema and osteomyelitis. Upper Extremity CT 11/05/18 00:00 IMPRESSION: 1. LINEAR METALLIC FOREIGN OBJECT IN THE SOFT TISSUES OF THE PAD OF THE DISTAL THUMB. 2. SKIN DEFECT IN THE PALM WITH EXTENSIVE GAS EXTENDING INTO THE PALMAR SOFT TISSUES SUSPICIOUS FOR INFECTION. NO FLUID COLLECTION OR DRAINABLE ABSCESS. 3. NO SIGNIFICANT BONY FINDINGS. Finger X-Ray 11/12/18 00:00 IMPRESSION: LINEAR METALLIC FOREIGN OBJECT IN THE SOFT TISSUES OF THE DISTAL THUMB. NO CHANGE PER KUB X-Ray 11/22/18 17:41 IMPRESSION: Mild decompression of the gastric air status post nasogastric tube placement. Abdomen/Pelvis CT 11/23/18 00:00 IMPRESSION: Small bilateral pleural effusions are present with bilateral lower lobe airspace disease. Small amount of ascites. Oral contrast is seen throughout the stomach and small bowel without evidence of gastric outlet obstruction or small bowel obstruction. Qualifiers - * PATIENT BEING DISCHARGED WITH ANY OF THE FOLLOWING DIAGNOSIS: No
[2018-12-01 17:45] VITALS: BP 136/71
--- NOTE | 2018-12-15 13:27 | Physician Advisory Note ---
Physician Advisor ProgressNote .: Pursuant to the plan for [facility], I have reviewed the medical record for this patient. Physician Advisor Statement: This pt came in w/(+)SIRS criteria, but was described as "appearing well", and "no respiratory distress" per ED dr, not "toxic" or "sick-appearing", or "in distress"; H&P states pt came in due to pain in hand, but denied any fever/chills/SOB/CP/N/V/abd pain/dizziness/etc, and described pt essentially as nontoxic except for bad hand infxn w/proximal extension and acute electrolyte/glucose abnormalities. Pt did have a couple O2 sats in high 80s documented in 1st 24 hrs, but both were followed 1min later by O2 sats of 96- 100%, without any indication of O2 being given/needed, and there was no order for O2. IVF & IVF bolus were given first day, but were documented to be ordered due to the hyponatremia and reported clinical dehydration. There was no acute AMS or thrombocytopenia or hyperbili or ARF or hypotension.... Therefore, although this poorly controlled DM pt was clearly appropriate to come in for extended IV abx & close monitoring w/repeated debridements as Inpatient, the picture painted about this pt's presentation is that of a localized, not systemic (though spreading), infxn, with leukocytosis that could be explained by her infxn, and tachycardia that could be explained by her pain that was described as getting to be intolerable. A pt meeting SIRS criteria in the setting of infection COULD certainly have underlying sepsis, but does not have to. The next questions are: 1. Was the pt truly sick enough to be clinically septic, or did she just meet SIRS criteria? (If she is recovered the next day & feeling much better already, even if still needing hospital tx for other things, she probably did not have sepsis after all.) 2. What acute organ dysfunction was present - and due to sepsis? (Something such as hypoxemia that only lasts a few moments at a time, interspersed with repeated high 90s O2 sats and not needing O2 administration, would not count towards Sepsis-3 criteria.) - Attending needs to be able to state what acute organ dysfunction was present and that it was due to sepsis rather than to other causes. 3. Was pt tx'd like she was truly septic? (Sepsis order set/repeat lactate 6 hrs after first, aggressive IVF for sepsis, not just IVF to help correct lytes, etc.) From what has been documented in this record so far, sepsis was appropriately considered on presentation, but (although the dx has been documented repeatedly), sepsis has not been sufficiently substantiated in the chart for considering as a final dx. Please document either (1) or (2) below, to better clarify this case so it can be accurately coded: 1. "sepsis was considered, but on further consideration, was ruled out", or 2. "Pt had severe sepsis", stating what acute organ dysfunction was caused by sepsis, and then explaining what appears to be a discrepancy between the descriptions in the chart so far and this dx. Thanks for your help! CK
== END 2018-12-01 18:46 | disposition home health service (06) | DRG 580 ==
LOC: ER 10:22 → EH 16:50 → 5 11-05 15:04
PROVIDERS: ADMIT Internal Medicine; ATTEND Internal Medicine
PROC: 0LB70ZZ Excision of Right Hand Tendon, Open Approach (ICD-10-PCS; 2018-11-08)
PROC: 0KBC0ZZ Excision of Right Hand Muscle, Open Approach (ICD-10-PCS; 2018-11-08)
PROC: 0M9 Bursae and Ligaments, Drainage (ICD-10-PCS; 2018-11-08)
PROC: 0JBJ0ZZ Excision of Right Hand Subcutaneous Tissue and Fascia, Open Approach (ICD-10-PCS; principal; 2018-11-17 16:15)
PROC: 0D9670Z Drainage of Stomach with Drainage Device, Via Natural or Artificial Opening (ICD-10-PCS; 2018-11-22)
PROC: 30233N1 Transfusion of Nonautologous Red Blood Cells into Peripheral Vein, Percutaneous Approach (ICD-10-PCS; 2018-11-23)
PROC: 0JBJ0ZZ Excision of Right Hand Subcutaneous Tissue and Fascia, Open Approach (ICD-10-PCS; 2018-11-26)
PROC: 0DB78ZX Excision of Stomach, Pylorus, Via Natural or Artificial Opening Endoscopic, Diagnostic (ICD-10-PCS; 2018-11-26)
DX: L03.113 Cellulitis of right upper limb (principal); L02.511 Cutaneous abscess of right hand; E87.1 Hypo-osmolality and hyponatremia; B37.89 Other sites of candidiasis; D62 Acute posthemorrhagic anemia; K92.1 Melena; E10.628 Type 1 diabetes mellitus with other skin complications; E83.52 Hypercalcemia; K25.9 Gastric ulcer, unspecified as acute or chronic, without hemorrhage or perforation; Z89.612 Acquired absence of left leg above knee; Z89.611 Acquired absence of right leg above knee; E10.65 Type 1 diabetes mellitus with hyperglycemia; K29.70 Gastritis, unspecified, without bleeding; Z79.4 Long term (current) use of insulin; Z66 Do not resuscitate; E86.0 Dehydration; E83.42 Hypomagnesemia; B95.1 Streptococcus, group B, as the cause of diseases classified elsewhere; B95.61 Methicillin susceptible Staphylococcus aureus infection as the cause of diseases classified elsewhere; Z95.1 Presence of aortocoronary bypass graft; M79.5 Residual foreign body in soft tissue; W07.XXXA Fall from chair, initial encounter; R11.2 Nausea with vomiting, unspecified; Z79.82 Long term (current) use of aspirin; Z86.14 Personal history of Methicillin resistant Staphylococcus aureus infection
CPT/HCPCS: 00400; 00731; 01810; 36415; 36430; 74018; 74177; 80048; 80053; 80069; 80202; 81001; 82271; 82550; 82962; 83036; 83605; 83690; 83735; 84100; 84484; 85025; 85027; 85652; 86140; 86850; 86900; 86901; 86920; 87040; 87070; 87075; 87077; 87086; 87186; 87205; 88304; 88305; 88342; 93005; 93010; 96365; 96367; 99285; J0690; J0696; J0780; J1100; J1170; J1200; J1450; J1644; J1815; J1885; J2248; J2250; J2270; J2405; J2543; J2550; J2704; J2765; J3010; J3230; J3370; J3475; J3480; J3490; J7030; J7120; P9016; S0028; S0164